=== PATIENT | male | born 1970 | race African-American/Black ===

== ENCOUNTER → 2018-01-18 | Outpatient (CLI) | payer MEDICAID, OTHER ==
[2018-01-18 18:59] LABS: Albumin 4.7 g/dL (3.5-5.0); Calcium 9.8 mg/dL (8.4-10.2); Potassium 4.5 mmol/L (3.5-5.1); Total Bilirubin 0.3 mg/dL (0.2-1.3); Total Protein 7.7 g/dL (6.3-8.2)
[2018-01-18 19:12] LABS: T4, Free (Free Thyroxine) 1.45 ng/dL (0.78-2.19)
[2018-01-18 19:23] LABS: Basophils % (A) 0 %; Eosinophils # (A) 0.1 k/uL (0-0.7); Eosinophils % (A) 1 %; HCT 42.7 % (39.0-53.0); HGB 14.3 gm/dL (13.0-17.5); Lymphocytes # (A) 2.9 k/uL (1.0-4.8); Lymphocytes % (A) 31 %; MCH 29.5 pg (25.0-35.0); MCHC 33.6 g/dL (31.0-37.0); Mean Platelet Volume 11.5; Monocytes # (A) 0.4 k/uL (0-1.0); Monocytes % (A) 4 %; Neutrophils # (A) 5.8 k/uL (1.3-7.7); Neutrophils % (A) 63 %; Platelet Count 114 k/uL (150-450); RBC 4.86 m/uL (4.30-5.90); RDW 13.8 % (11.5-15.5); WBC 9.2 k/uL (3.8-10.6)
[2018-01-18 19:57] LABS: Large Platelets Present
== END | disposition home or self-care (01) ==
LOC: MMGSC 14:16
PROVIDERS: ATTEND Family Medicine
DX: Z00.00 Encounter for general adult medical examination without abnormal findings (principal); I10 Essential (primary) hypertension
CPT/HCPCS: 36415; 80053; 80061; 84439; 84443; 85025

== ENCOUNTER → 2018-02-14 | Outpatient (CLI) | payer MEDICAID ==
--- NOTE | 2018-02-14 21:49 | MR ---
EXAMINATION TYPE: MR pelvis wo/w con DATE OF EXAM: 02/14/2018 COMPARISON: NONE HISTORY: Rt groin pain CONTRAST: Standard multiplanar, multisequence MRI departmental protocol utilizing 10 mL intravenous Gadavist ga dolinium contrast. Imaging is performed of the pelvis focusing and right groin. FINDINGS: There are symmetric tiny benign-appearing bilateral groin lymph nodes. There is no suspicio us bowel or fat containing inguinal hernia bilaterally. Muscle bulk bilateral thighs is symmetric and felt within normal limits. There is no suspicious focal intratesticular mass. There are small scrotal fluid collection or hydroc eles bilaterally. Prostate gland is normal in size. Bladder is poorly distended and suboptimally evaluated. Seminal ves icles are within normal limits. There is no suspicious bowel dilatation. There is no concerning free pelvic fluid collection. There is no suspicious pelvic adenopathy seen. Visualized osseous structures are intact. The hip and sacroiliac joints are preserved. Pubic symphysi s is not widened. No suspicious muscular edema or enhancement is identified. IMPRESSION: No suspicious finding is seen to account for patient's symptoms of right groin pain.
== END | disposition home or self-care (01) ==
LOC: RADMRIMAIN 20:02
PROVIDERS: ATTEND Surgery
DX: R10.30 Lower abdominal pain, unspecified (principal)
CPT/HCPCS: 72197; A9581

== ENCOUNTER 2018-03-15 08:24 | Day surgery (SDC) | payer MEDICAID ==
[2018-03-09 09:12] VITALS: BMI 27.8
[~2018-03-15 08:24] MED LIST: DEXAMETHASONE SOD PHOSPHATE 10 MG/ML 1 ML VIAL IV ONE; HEPARIN SODIUM,PORCINE 5,000 UNIT/ML 1 ML VIAL SQ ONE; LACTATED RINGERS 1,000 ML IV SCH; LIDOCAINE 1% 20 ML VIAL (10MG/ML) FOR IV START INTRADERMA PRN; MIDAZOLAM 2 MG/2 ML VIAL IV PRN; Pre Op ABX Message 1 EACH MISC MISCELLANE ONE; SCOPOLAMINE 1.5MG/72HR PATCH TRANSDERM ONE
[2018-03-15 08:55] VITALS: RESP 16; TEMP 97.2
[2018-03-15] MEDS ORDERED: BUPIVACAINE (PF) 0.5% 30 ML VIAL SQ ONE ×2 (09:33)
--- NOTE | 2018-03-15 09:56 | P.GSHP ---
History of Present Illness H&P Date: 03/15/18 Chief Complaint: Posterior neck mass 47-year-old male presents today for excision right posterior neck mass. Please refer to recent H&P. Mass is increasing in size. Mild pain. No previous biopsy. Past Medical History Past Medical History: GERD/Reflux, Hypertension History of Any Multi-Drug Resistant Organisms: None Reported Additional Past Surgical History / Comment(s): circumcision as adult Past Anesthesia/Blood Transfusion Reactions: No Reported Reaction Smoking Status: Current every day smoker - Past Family History Mother Family Medical History: Cancer Medications and Allergies Home Medications Medication Instructions Recorded Confirmed Type Benazepril HCl 20 mg PO DAILY 03/09/18 03/09/18 History Nebivolol HCl [Bystolic] 10 mg PO DAILY 03/09/18 03/09/18 History Omeprazole 20 mg PO DAILY 03/09/18 03/09/18 History Allergies Allergy/AdvReac Type Severity Reaction Status Date / Time No Known Allergies Allergy Verified 03/09/18 09:04 Surgical - Exam Vital Signs Temp Pulse Resp BP Pulse Ox 97.2 F L 58 L 16 126/95 97 03/15/18 08:54 03/15/18 08:54 03/15/18 08:54 03/15/18 08:54 03/15/18 08:54 Physical exam: General: Well-developed, well-nourished HEENT: Normocephalic, sclerae nonicteric, 2.5-3 cm subcutaneous mass right posterior neck Abdomen: Nontender, nondistended Extremities: No edema Neuro: Alert and oriented Assessment and Plan (1) Neck mass Narrative/Plan: We'll proceed with surgical excision at this time. Current Visit: Yes Status: Acute Code(s): R22.1 - LOCALIZED SWELLING, MASS AND LUMP, NECK SNOMED Code(s): 023799552
[2018-03-15] MEDS ORDERED: LIDOCAINE 1% INJ 10MG/ML (20 ML MDV) ONE (10:00)
[2018-03-15] MEDS ORDERED: PROPOFOL 10 MG/ML 20 ML VIAL IV ONE (10:00)
[2018-03-15] MEDS ORDERED: MIDAZOLAM 2 MG/2 ML VIAL ONE (10:00)
[2018-03-15] MEDS ORDERED: fentaNYL (PF) 50 MCG/ML 2 ML AMP ONE (10:00)
[2018-03-15] MEDS ORDERED: SODIUM CHLORIDE 0.9% 50 ML with ceFAZolin 2,000 MG IV ONE ×2 (10:15)
[2018-03-15] MEDS ORDERED: NALOXONE 0.4 MG/ML 1 ML VIAL IV PRN (10:33)
[2018-03-15] MEDS ORDERED: HYDROcodone/APAP 5-325MG 1 EACH TAB PO PRN (10:33)
--- NOTE | 2018-03-15 10:36 | P.OP ---
Date of Procedure: 03/15/18 Procedure(s) Performed: PREOPERATIVE DIAGNOSIS: Right posterior neck mass POSTOPERATIVE DIAGNOSIS: right posterior neck lipoma PROCEDURE: Excision lipoma SURGEON: Yoselin EBL: 1 mL ANESTHESIA: Sedation COMPLICATIONS: None OPERATIVE PROCEDURE: Patient placed in the left decubitus position. He was sedated per anesthesia. The right posterior neck was prepped and draped in usual sterile fashion. A small incision was made after localizing with Marcaine. Dissection through the subcutaneous tissue took place using electrocautery. The mass was a lipoma measuring 3 x 2 cm. This was fully excised with use of blunt dissection and cautery. The subcutaneous tissues were closed using 3-0 Vicryl sutures and the skin using 4-0 Monocryl sutures. Steri-Strips and sterile dressings were applied. DISPOSITION: Stable to recovery room
[2018-03-15 11:15] VITALS: BP 125/84; PULSE 52
== END 2018-03-15 11:57 | disposition home or self-care (01) ==
LOC: OR 08:24
PROVIDERS: ATTEND Surgery
DX: D17.0 Benign lipomatous neoplasm of skin and subcutaneous tissue of head, face and neck (principal); Z79.899 Other long term (current) drug therapy; I10 Essential (primary) hypertension; K21.9 Gastro-esophageal reflux disease without esophagitis; F17.200 Nicotine dependence, unspecified, uncomplicated
CPT/HCPCS: 88304; 21552; J2250; J1644; J1100; J2001; J3010; J0690; J2704

== ENCOUNTER → 2018-04-24 | Outpatient (CLI) | payer MEDICAID ==
[2018-04-24 17:41] LABS: HCT 43.1 % (39.0-53.0); HGB 14.4 gm/dL (13.0-17.5); MCH 30.3 pg (25.0-35.0); MCHC 33.6 g/dL (31.0-37.0); MCV 90.2 fL (80.0-100.0); Mean Platelet Volume 9.1; Platelet Count 111 k/uL (150-450); RBC 4.77 m/uL (4.30-5.90); RDW 13.8 % (11.5-15.5); WBC 7.3 k/uL (3.8-10.6)
[2018-04-24 17:48] LABS: Appearance,Urine Clear (Clear); Bilirubin,Urine Negative (Negative); Blood,Urine Negative (Negative); Color,Urine Light Yellow; Glucose,Urine (UA) Negative (Negative); Ketones,Urine Negative (Negative); Leukocyte Esterase,Urine Negative (Negative); Nitrite,Urine Negative (Negative); PH, Urine 6.5 (5.0-8.0); Protein,Urine Negative (Negative); Specific Gravity,Urine 1.014 (1.001-1.035); Urobilinogen,Urine <2.0 mg/dL (<2.0)
[2018-04-24 18:00] LABS: Calcium 9.7 mg/dL (8.4-10.2); Phosphorus 3.5 mg/dL (2.5-4.5); Potassium 4.3 mmol/L (3.5-5.1)
== END | disposition home or self-care (01) ==
LOC: LABWHC1 17:29
PROVIDERS: ATTEND Internal Medicine Nephrology
DX: N39.0 Urinary tract infection, site not specified (principal); D64.9 Anemia, unspecified; E83.39 Other disorders of phosphorus metabolism
CPT/HCPCS: 36415; 80048; 81003; 84100; 85027

== ENCOUNTER → 2018-05-10 | Outpatient (CLI) | payer MEDICAID ==
--- NOTE | 2018-05-10 22:40 | MR ---
EXAMINATION TYPE: MR lumbar spine wo con DATE OF EXAM: 05/10/2018 COMPARISON: Outside lumbar spine x-ray April 27, 2018 HISTORY: Low back pain per order. Pain for 6 to 8 months going into right lower extremity per patient . TECHNIQUE: Multiplanar, multisequence imaging of the lumbar spine is performed without IV contrast. FINDINGS: Sagittal images of the lumbar spine show vertebral body heights and alignment to appear sat isfactory. The intervertebral discs demonstrate normal heights and hydration. No suspicious posterior disc herniations are seen on sagittal images. The conus medullaris is normal in position and signal ending mid L1 level. The bone marrow signal intensity is within normal limits. Small hemangioma S2 l evel is noted sagittal image 7. Additional hemangioma noted L2 level sagittal image 6. No significant spurring is present. Axial images show the T12-L1, L1-L2, and L2-L3 levels also appear within normal limits. Axial images at L3-L4 and L4-L5 levels show mild broad disc bulges minimally effacing anterior thecal sac and causing mild bilateral anterior inferior neural foraminal narrowing. Axial images at L5-S1 level are felt to appear within normal limits. No suspicious retroperitoneal findings are seen. Paraspinal muscle bulk is preserved. IMPRESSION: Some mild multilevel degenerative changes L3-L4 and L4-L5 levels. No significant finding is seen to account for patient's right-sided radiculopathy type symptoms however.
== END | disposition home or self-care (01) ==
LOC: RADMRIMAIN 09:39
PROVIDERS: ATTEND Orthopaedic Surgery
DX: M47.816 Spondylosis without myelopathy or radiculopathy, lumbar region (principal)
CPT/HCPCS: 72148

== ENCOUNTER → 2018-05-19 | Outpatient (CLI) | payer MEDICAID ==
--- NOTE | 2018-05-19 16:04 | US ---
EXAMINATION TYPE: US kidneys/renal and bladder DATE OF EXAM: 05/19/2018 COMPARISON: MRI lumbar spine May 10, 2018 CLINICAL HISTORY: N18.3 CKD. Elevated labs. No pain. Family hx of renal abnormalities EXAM MEASUREMENTS: Right Kidney: 10.1 x 5.5 x 5.5 cm Left Kidney: 9.1 x 5.2 x 6.2 cm Right Kidney: No hydronephrosis or masses seen Left Kidney: No hydronephrosis or masses seen Bladder: wnl, distended Bilateral Jets seen There is no evidence for hydronephrosis at this point in time. No nephrolithiasis is seen. No breana s are identified. The urinary bladder is anechoic. Bilateral ureteral jets are seen. IMPRESSION: Unremarkable study.
== END | disposition home or self-care (01) ==
LOC: RADUSWWP 14:31
PROVIDERS: ATTEND Internal Medicine Nephrology
DX: N18.3 Chronic kidney disease, stage 3 (moderate) (principal)
CPT/HCPCS: 76770

== ENCOUNTER → 2018-06-14 | Outpatient (CLI) | payer MEDICAID ==
--- NOTE | 2018-06-15 03:03 | MR ---
EXAMINATION TYPE: MR hip RT wo con DATE OF EXAM: 06/14/2018 COMPARISON: None HISTORY: Rt hip pain x 9 mos, no trauma Standard multiplanar, multisequence MRI departmental protocol Multiplanar, multisequence images of the right hip were acquired. FINDINGS: Proximal femurs have normal signal pattern. There is no evidence of edema. There is no evid ence of a fracture. Acetabula appear normal. Bladder distends smoothly. There is no evidence of a pel abbe mass. There is no evidence of hip joint effusion. I see no bony destructive process. IMPRESSION: Normal MR scan of the pelvis and right hip. No evidence of hip dysplasia. No evidence of avascular ne crosis.
== END | disposition home or self-care (01) ==
LOC: RADMRIMAIN 15:30
PROVIDERS: ATTEND Orthopaedic Surgery
DX: M25.551 Pain in right hip (principal)

== ENCOUNTER → 2019-01-08 | Outpatient (CLI) | payer MEDICAID ==
--- NOTE | 2019-01-08 22:48 | MR ---
EXAMINATION TYPE: MR lumbar spine wo con DATE OF EXAM: 01/08/2019 COMPARISON: MRI lumbar spine May 10, 2018 HISTORY: Low back pain, Left leg pain TECHNIQUE: Multiplanar, multisequence imaging of the lumbar spine is performed without IV contrast. FINDINGS: Sagittal images of the lumbar spine show vertebral body heights and alignment to appear sta ble and straightened. The intervertebral discs 3 demonstrate normal heights and hydration. The conus medullaris remains normal in position and signal ending mid L1 level. Hemangioma involving L2 verteb ra is redemonstrated sagittal image 6. Additional small hemangioma redemonstrated S2 level sagittal i mage 8. Axial images redemonstrate the T12-L1, L1-L2, and L2-L3 levels all to appear within normal limits. Axial images at the L3-L4 level redemonstrates mild broad disc bulge minimally effacing the anterior thecal sac and causing mild bilaterally anterior inferior neural foraminal narrowing, no significant change from prior. Axial images at L4-L5 levels with broad-based posterior disc protrusion mildly effaces the anterior t hecal sac with left foraminal annular tear and mild bilateral lesion inferior neural foraminal narrow ing, no significant change from prior. Axial images at L5-S1 level are felt to remain within normal limits. No suspicious incidental retroperitoneal findings are seen. IMPRESSION: Stable small disc herniations L3-L4 and L4-L5 level with stable straightened alignment. N o significant change from prior MRI.
== END ==
LOC: RADMRIMAIN 21:42
PROVIDERS: ATTEND Physical Medicine & Rehabilitation
DX: M51.26 Other intervertebral disc displacement, lumbar region (principal)
CPT/HCPCS: 72148

== ENCOUNTER → 2020-07-23 | Outpatient (CLI) | payer MEDICAID ==
--- NOTE | 2020-07-23 08:22 | MR ---
EXAMINATION TYPE: MR lumbar spine wo con DATE OF EXAM: 07/23/2020 COMPARISON: Prior MRI lumbar spine January 08, 2019. HISTORY: Low back pain, radiculopathy, intervertebral disc degeneration with radiculopathy, and right lower extremity radiculopathy all per order. Pain and numbness for 4 to 5 years into right lower ext remity per patient. TECHNIQUE: Multiplanar, multisequence imaging of the lumbar spine is performed without IV contrast. FINDINGS: Sagittal images of the lumbar spine show vertebral body heights to remain stable and satisf actory. Stable and straightened alignment. The intervertebral discs redemonstrate demonstrate normal heights and hydration. The conus medullaris remains normal in position and signal ending mid L1 leve l. Hemangioma involving L2 vertebra is redemonstrated sagittal image 6. Additional small hemangioma r edemonstrated S2 level sagittal image 8. No suspicious spurring. Axial images redemonstrate the T12-L1, L1-L2, and L2-L3 levels all to remain within normal limits. Axial images at the L3-L4 level redemonstrates mild broad disc bulge minimally effacing the anterior thecal sac and causing mild bilaterally anterior inferior neural foraminal narrowing, no significant change from prior. Axial images at L4-L5 levels demonstrate broad-based posterior disc protrusion mildly effaces the ant erior thecal sac with left foraminal annular tear and mild bilateral anterior inferior neural foramin al narrowing, no significant change from prior. Axial images at L5-S1 level are felt to remain within normal limits. Paraspinal muscle bulk is preserved. IMPRESSION: Straightening of lumbar spine with mild multilevel degenerative changes at L3-L4 and L4-L 5 levels. No significant change or progression from recent MRI. No suspicious focal disc herniation i dentified to account for patient's right-sided radiculopathy type symptoms.
== END | disposition home or self-care (01) ==
LOC: RADMRIMAIN 07:36
PROVIDERS: ATTEND Physical Medicine & Rehabilitation
DX: M47.26 Other spondylosis with radiculopathy, lumbar region (principal); M53.86 Other specified dorsopathies, lumbar region; I10 Essential (primary) hypertension
CPT/HCPCS: 72148

== ENCOUNTER → 2020-08-18 | Outpatient (CLI) | payer MEDICAID ==
--- NOTE | 2020-08-18 15:31 | US ---
EXAMINATION TYPE: US kidneys/renal and bladder DATE OF EXAM: 08/18/2020 COMPARISON: US, MR lumbar spine CLINICAL HISTORY: N18.3 chronic kidney stage 3. EXAM MEASUREMENTS: Right Kidney: 10.1 x 6.1 x 4.4 cm Left Kidney: 10.1 x 5.6 x 6.4 cm Post Void Residual Volume: 1.7 mL Right Kidney: No hydronephrosis or masses seen Left Kidney: No hydronephrosis or masses seen Bladder: wnl Bilateral Jets seen: yes Normal Post Void Residual: yes IMPRESSION: No hydronephrosis or nephrolithiasis.
== END | disposition home or self-care (01) ==
LOC: RADUSWWP 14:21
PROVIDERS: ATTEND Internal Medicine
DX: N18.30 Chronic kidney disease, stage 3 unspecified (principal)
CPT/HCPCS: 76770

== ENCOUNTER 2020-09-02 07:30 | Day surgery (SDC) | payer MEDICAID ==
[2020-08-27 13:10] VITALS: BMI 28.7
[2020-09-02 07:52] VITALS: TEMP 97.8
[2020-09-02] MEDS ORDERED: IOPAMIDOL M200 10 ML VIAL ONE (08:09)
[2020-09-02] MEDS ORDERED: TRIAMCINOLONE ACETONIDE 40 MG/ML 1 ML VIAL ONE (08:09)
--- NOTE | 2020-09-02 08:20 | P.PCN ---
Date of Procedure: 09/02/20 Description of Procedure: Preoperative diagnoses: right sacroilitis Postoperative diagnoses: right sacroilitis. Procedure: right sacroiliac joint steroid injection under fluoroscopic guidance. Surgeon: Akil Dow MD Anesthesia: [2 mL of 1% lidocaine and moderate sedation per hospital guideli yogi], Fluoroscopy was used for the procedure and fluoroscopic images were saved to the radiology portion of the patient's chart. EBL: None Procedure indication: The patient had a history of severe chronic low back pain, diagnosed with sacroiliitis unresponsive to conservative treatment. Procedure description: The patient was seen and identified in the preoperative holding area, risks and benefits and alternative of the procedure and possible complications discussed with the patient, and patient agreed with the preceding, patient signed the consent, an IV was started, and vital signs were monitored and were stable throughout the procedure, patient was placed in the prone position on table and the lumbosacral area was prepped and draped with a sterile fashion, vital signs were closely monitored during the procedure, the fluoroscopy camera was placed in the contralateral oblique view on the rightsacroiliac joint and the lower part of the joint was identified . Then the skin and subcutaneous tissue was anesthetized using 2 mL of 1% lidocaine then a 22-gauge Quincke-type spinal needle advanced slowly under fluoroscopy and placed in the posterior and inferior border of the right sacroiliac joint, placement confirmed with AP and lateral view, and after appropriate needle placement confirmed and after negative aspiration for heme, 1 mL of Isovue 200 was injected revealing intra-articular spread. Then a solution consisting of 2 ml of ropivacaine 0.5% and 40 mg of Kenalog injected after negative aspiration, no paresthesia during the injection, no resistance to injection, and the needle was removed. Total of 40 mg of Kenalog was used for the procedure. Patient tolerated the procedure well without any complication. The patient was returned to supine position after the back was cleaned and a Band-Aid applied, the patient was transported to recovery room in stable condition and monitored for 30 minutes before being discharged home. The patient will repeat procedure in 2-4 weeks.
[2020-09-02 08:42] VITALS: BP 135/80; PULSE 54; RESP 16
--- NOTE | 2020-09-02 09:24 | FL ---
Fluoroscopy HISTORY: Pain 3 seconds fluoroscopy time supplied to the referring clinician. 1 intraoperative C-arm images docume nt the procedure. See dictated report from anesthesia.
== END 2020-09-02 08:45 | disposition home or self-care (01) ==
LOC: ORPAIN 07:30
PROVIDERS: ATTEND Anesthesiology
DX: G89.29 Other chronic pain (principal); M46.1 Sacroiliitis, not elsewhere classified
CPT/HCPCS: 27096; J3301; Q9966

== ENCOUNTER 2020-09-18 07:13 | Day surgery (SDC) | payer MEDICAID ==
[2020-09-17 13:23] VITALS: BMI 28.3
[~2020-09-18 07:13] MED LIST changes: -DEXAMETHASONE SOD PHOSPHATE 10 MG/ML 1 ML VIAL IV ONE; -HEPARIN SODIUM,PORCINE 5,000 UNIT/ML 1 ML VIAL SQ ONE; -LIDOCAINE 1% 20 ML VIAL (10MG/ML) FOR IV START INTRADERMA PRN; -MIDAZOLAM 2 MG/2 ML VIAL IV PRN; -Pre Op ABX Message 1 EACH MISC MISCELLANE ONE; -SCOPOLAMINE 1.5MG/72HR PATCH TRANSDERM ONE
[2020-09-18 07:25] VITALS: RESP 16; TEMP 98.5
[2020-09-18] MEDS ORDERED: LIDOCAINE 1% (10MG/ML) FOR IV START INTRADERMA ONE (07:29)
[2020-09-18] MEDS ORDERED: LACTATED RINGERS 1,000 ML IV ONE (07:29)
[2020-09-18] MEDS ORDERED: MIDAZOLAM 2 MG/2 ML VIAL ONE (07:31)
[2020-09-18] MEDS ORDERED: methylPREDNISolone ACETATE 40 MG/ML 1 ML VIAL ONE (07:31)
[2020-09-18] MEDS ORDERED: fentaNYL (PF) 50 MCG/ML 2 ML AMP ONE (07:31)
[2020-09-18] MEDS ORDERED: ROPIVACAINE 5MG/ML 20ML VIAL ONE (07:31)
--- NOTE | 2020-09-18 07:45 | P.PCN ---
Date of Procedure: 09/18/20 Procedure(s) Performed: Procedure= Right sacroiliac joints steroid injection under fluoroscopy guidance (fluoroscopy image stored on file in the radiology Department ) Preoperative diagnosis= 1-Right sacroiliitis # 2 nd Postoperative diagnosis=Same as preop Diagnosis . Complication = none Condition= stable Anesthesia= moderate sedation with intravenous Versed 2 mg , and fentanyl 50 micrograms . Indication for the procedure= patient complaining of low back pain , examination was positive for severe tenderness over the sacroiliac joints bilaterally and patient diagnosed with sacroiliitis, for this reason he was good candidate for sacroiliac joint steroid injection. Description of the procedure= procedure risk and benefits discussed with the patient, including but not limited, risk of infection and bleeding, and ALLERGIC reaction to the medication and not complete pain relief and patient agreed with the preceding patient taken to the operating room, placed in prone position or standard monitors applied to the patient then after induction of anesthesia back prepped with chlorhexidine 3 times , Then under strict sterile technique, first I did the right sacroiliac joint the which was identified under fluoroscopy guidance been local infiltration of the skin and subcu interstitial with lidocaine 1% then 22-gauge Quincke Needle advanced slowly under fluoroscopy and placed in the right sacroiliac joint needle placement confirmed with AP and oblique and lateral view and after a ppropriate needle placement confirmed and after negative aspiration, or heme , then Ropivacaine 0.5% 4 mL, and 40 mg of Depo-Medrol mixed together and injected in the right sacroiliac joint after negative aspiration patient tolerated the procedure well without any complication.
[2020-09-18] MEDS ORDERED: IV FLUID CONTINUATION 1,000 ML IV ONE ×2 (07:46)
[2020-09-18 08:03] VITALS: BP 130/88; PULSE 78
--- NOTE | 2020-09-18 09:21 | FL ---
EXAMINATION TYPE: FL guided pain mgmt statistic DATE OF EXAM: 09/18/2020 HISTORY: Fluoroscopy time 5 seconds of fluoroscopy provided. IMPRESSION: 1. Fluoroscopy time.
== END 2020-09-18 08:20 | disposition home or self-care (01) ==
LOC: ORPAIN 07:13
PROVIDERS: ATTEND Specialist
DX: M46.1 Sacroiliitis, not elsewhere classified (principal); I10 Essential (primary) hypertension
CPT/HCPCS: 27096; J2250; J1030; J3010; J2795

== ENCOUNTER → 2020-10-21 | Outpatient (CLI) | payer MEDICAID ==
[2020-10-21 09:05] LABS: HCT 39.6 % (39.0-53.0); HGB 13.8 gm/dL (13.0-17.5); MCHC 34.8 g/dL (31.0-37.0); MCV 91.8 fL (80.0-100.0); Mean Platelet Volume 8.8; Platelet Count 105 k/uL (150-450); RBC 4.31 m/uL (4.30-5.90); RDW 13.5 % (11.5-15.5); WBC 5.7 k/uL (3.8-10.6)
[2020-10-21 09:31] LABS: Appearance,Urine Clear (Clear); Bilirubin,Urine Negative (Negative); Blood,Urine Negative (Negative); Color,Urine Yellow; Glucose,Urine (UA) Negative (Negative); Ketones,Urine Negative (Negative); Leukocyte Esterase,Urine Negative (Negative); Nitrite,Urine Negative (Negative); PH, Urine 5.5 (5.0-8.0); Protein,Urine Trace (Negative); Specific Gravity,Urine 1.032 (1.001-1.035); Urobilinogen,Urine <2.0 mg/dL (<2.0)
[2020-10-21 14:46] LABS: African American GFR (CKD) 67.9 (60.0-200.0); Albumin 4.5 g/dL (3.80-4.90); Albumin/Globulin Ratio 2.05 (1.60-3.17); Anion Gap 7.7 mmol/L (4.00-12.00); BUN/Creat Ratio 17.86 Ratio (12.00-20.00); Calcium 9.7 mg/dL (8.7-10.3); Carbon Dioxide 29.3 mmol/L (21.6-31.8); Globulin 2.2 g/dL (1.6-3.3); Non-African American GFR(CKD) 58.6 (60.0-200.0); Total Bilirubin 0.5 mg/dL (0.2-1.2); Total Protein 6.7 g/dL (6.2-8.2)
[2020-10-21 14:47] LABS: % Iron Saturation 25.08 (15.00-50.00); Magnesium 1.7 mg/dL (1.5-2.4); Uric Acid 7.6 mg/dL (3.7-8.7)
[2020-10-21 14:55] LABS: Ferritin 167.7 ng/mL (22.0-322.0)
[2020-10-21 19:03] LABS: Urine Creatinine 377.6 mg/dL
== END | disposition home or self-care (01) ==
LOC: LABWHC1 07:37
PROVIDERS: ATTEND Internal Medicine
DX: E55.9 Vitamin D deficiency, unspecified (principal); D63.1 Anemia in chronic kidney disease; N18.30 Chronic kidney disease, stage 3 unspecified; N25.81 Secondary hyperparathyroidism of renal origin; M10.9 Gout, unspecified; N39.0 Urinary tract infection, site not specified
CPT/HCPCS: 36415; 80053; 81003; 82043; 82306; 82570; 82728; 83540; 83550; 83735; 83970; 84100; 84550; 85027

== ENCOUNTER 2020-12-15 08:59 | Day surgery (SDC) | payer MEDICAID ==
[2020-12-11 11:19] VITALS: BMI 28.5
[2020-12-15 09:53] VITALS: TEMP 97.1
[2020-12-15] MEDS: LACTATED RINGERS 1,000 ML IV SCH ×2 (10:02→10:41)
[2020-12-15] MEDS ORDERED: LIDOCAINE 1% (10MG/ML) FOR IV START INTRADERMA ONE (10:03)
[2020-12-15] MEDS ORDERED: GLYCOPYRROLATE 0.2 MG/ML 2 ML VIAL ONE (10:43)
[2020-12-15] MEDS ORDERED: LIDOCAINE 1% INJ 10MG/ML (20 ML MDV) ONE (10:43)
[2020-12-15] MEDS ORDERED: PROPOFOL 10 MG/ML 20 ML VIAL IV ONE (10:43)
[2020-12-15] MEDS ORDERED: MIDAZOLAM 2 MG/2 ML VIAL ONE (10:43)
--- NOTE | 2020-12-15 11:21 | P.PCN ---
Date of Procedure: 12/15/20 Description of Procedure: Brief history: Patient is a 50-year-old male presenting for outpatient EGD and colonoscopy for further history of gastric ulcer and symptoms of diarrhea/altered bowel function with no prior screening colonoscopy. He denies any family history of colon cancer or IBD. Reports a remote history of peptic ulcer disease. He reports intermittent diarrhea. No prior colonoscopy. Procedure performed: Esophagogastroduodenoscopy with biopsy Colonoscopy with biopsy and polypectomy Estimated blood loss: Minimal. Preoperative diagnosis: GERD, history of gastric ulcer, diarrhea, altered bowel function, no prior colonoscopy or screening colonoscopy Anesthesia: [facility] Procedure: After informed consent was obtained from the patient was brought into the endoscopy unit and IV sedation was administered by anesthesia under continuous monitoring. Initially upper endoscopy was done. The Olympus GF 190 video endoscope was inserted into the mouth and esophagus intubated without any difficulty and was gradually advanced into the stomach and duodenum and carefully examined. The bulb and second part of the duodenum appeared normal, with biopsies taken. The scope was then withdrawn into the stomach adequately insufflated with air and upon careful examination the antrum and body, cardia and fundus appeared normal, except for some mild scattered erythema and body suggestive of mild gastritis with biopsies taken . The scope was then withdrawn into the esophagus. The GE junction was located at 42 cm to the incisors and biopsies. It appeared regular with no erythema erosions or ulcerations. Rest of the esophagus appeared normal. Patient tolerated the procedure well. At this time the patient continued to remain sedation. Initial digital rectal examination was normal. Olympus CF 190 video colonoscope was then inserted into the rectum and gradually advanced to the cecum without any difficulty. Careful examination was performed as the scope was gradually being withdrawn. The prep was excellent. The cecum, ascending colon, transverse colon, descending colon, sigmoid colon and rectum appeared normal, with random biopsies taken of the right and left colon in the setting of altered bowel function diarrhea. Diminutive 2 mm transverse colon polyp removed with cold forcep polypectomy. Pedunculated 12 mm sigmoid colon polyp removed with hot snare polypectomy. Retroflexion was performed in the rectum and no lesions were noted, low-grade internal hemorrhoids. Patient tolerated the procedure well. Impression: 1. Mild gastritis. Biopsies of the duodenum, antrum body and GE junction. 2. Pedunculated sigmoid colon polyp removed with hot snare. Diminutive transverse colon polyp removed with cold forcep polypectomy. Random biopsies taken of the normal-appearing right and left colon given altered bowel function. Recommendations: Findings of this examination were discussed with the patient as well as his family. Okay to resume diet. Okay to resume medications. Await pathology from biopsies and polypectomy. Recommend repeat colonoscopy in 3 years pending pathology from polypectomy, for colon polyps.
[2020-12-15 11:41] VITALS: BP 144/93; PULSE 68; RESP 16
== END 2020-12-15 12:14 | disposition home or self-care (01) ==
LOC: ORWHC2ENDO 08:59
PROVIDERS: ATTEND Internal Medicine
DX: R19.7 Diarrhea, unspecified (principal); K21.9 Gastro-esophageal reflux disease without esophagitis; D12.3 Benign neoplasm of transverse colon; Z87.11 Personal history of peptic ulcer disease; K31.9 Disease of stomach and duodenum, unspecified
CPT/HCPCS: 45385; 45380; 43239; 88305; J2250; J2001; J2704

== ENCOUNTER 2020-12-16 11:41 | Day surgery (SDC) | payer MEDICAID ==
[2020-12-11 11:32] VITALS: BMI 28.5
[2020-12-16 11:57] VITALS: TEMP 97
[2020-12-16] MEDS ORDERED: LACTATED RINGERS 1,000 ML IV ONE (12:01)
[2020-12-16] MEDS ORDERED: LACTATED RINGERS 1,000 ML IV SCH (12:15)
[2020-12-16] MEDS ORDERED: ROPIVACAINE 5MG/ML 20ML VIAL ONE (12:53)
[2020-12-16] MEDS ORDERED: MIDAZOLAM 2 MG/2 ML VIAL ONE (12:53)
[2020-12-16] MEDS ORDERED: IOPAMIDOL M200 10 ML VIAL ONE (12:53)
[2020-12-16] MEDS ORDERED: methylPREDNISolone ACETATE 40 MG/ML 1 ML VIAL ONE (12:53)
--- NOTE | 2020-12-16 13:03 | P.PCN ---
Date of Procedure: 12/16/20 Description of Procedure: PREOPERATIVE DIAGNOSIS: Sacroiliac joint dysfunction POSTOPERATIVE DIAGNOSIS: Sacroiliac joint dysfunction. PROCEDURES: 1.Right-sided Sacroiliac joint steroid injection 2. Sacroiliac joint arthrogram. SURGEON: Susanne Lee ANESTHESIA: Local and IV sedation : Versed 2 mg. EBL: None. Specimen removed: None Fluoroscopic image: saved to electronic medical records. PROCEDURE INDICATIONS: This patient with a history of chronic low back pain, and sacroiliac joint dysfunction. Patient tried conservative therapy. Came here for intervention management. PROCEDURE DESCRIPTION: The patient was seen and identified in the preoperative area. Risks, benefits, complications, and alternatives were discussed with the patient. The patient agreed to proceed with the procedure and signed the consent. IV was started, and vital signs were stable. Patient was taken to the OR and time out was completed. The patient was placed in the prone position on procedure table and a pillow was placed under the abdomen to reduce lumbar lordosis. The lumbosacral area was prepped and draped in the usual sterile fashion. Critical pause was taken. Vital signs were closely monitored during the procedure. For the right side, the fluoroscopic camera was placed in left oblique view and right SI joint lower pole was identified. Skin entry point was infiltrated with 1% lidocaine and 22-gauge 3.5 inch spinal needle was introduced into the inferior one-third of SI joint and after penetrating into the joint arthrogram was done. 0.5 ml of Etsofi285 contrast was injected after negative aspiration for blood, and air and negative for paresthesia. Good spread of the contrast into the SI joint has been seen. Then again after negative aspiration of spinal fluid and blood and negative for neurological symptoms, 3 mL of a solution containing total 2 mL of 0.5% preservative-free ropivacaine mixed with 40 MG of Depo-Medrol was injected. Needle was withdrawn intact. Skin was cleansed, and bandages were applied. COMPLICATIONS: None. DISPOSITION / PLANS: The patient was placed in a supine position and transferred to the recovery area in a stable condition for observation and was discharged from the recovery room after meeting discharge criteria. Home discharge instructions given to the patient by the staff. The patient was reexamined prior to discharge. The patient will schedule for follow-up visit with the pain clinic in 4 weeks duration.
[2020-12-16] MEDS ORDERED: IV FLUID CONTINUATION 840 ML IV ONE (13:05)
[2020-12-16 13:12] VITALS: RESP 16
[2020-12-16 13:25] VITALS: BP 138/89; PULSE 61
--- NOTE | 2020-12-16 13:30 | FL ---
EXAMINATION TYPE: FL guided pain mgmt statistic DATE OF EXAM: 12/16/2020 HISTORY: Fluoroscopy time 1 seconds of fluoroscopy provided. IMPRESSION: 1. Fluoroscopy time.
== END 2020-12-16 13:30 | disposition home or self-care (01) ==
LOC: ORPAIN 11:41
DX: G89.29 Other chronic pain (principal); M53.3 Sacrococcygeal disorders, not elsewhere classified; M46.1 Sacroiliitis, not elsewhere classified; Z79.899 Other long term (current) drug therapy
CPT/HCPCS: 27096; J2250; J1030; Q9966; J2795

== ENCOUNTER → 2021-01-12 | Outpatient (CLI) | payer MEDICAID ==
--- NOTE | 2021-01-12 15:12 | P.PN ---
Subjective Progress Note Date: 01/12/21 This is a follow-up visit for this 50 years old male with a chronic history of severe low back pain , he is diagnosed with Right sacroiliitis, recently we have done Right sacroiliac joint steroid injection patient reported that his pain improved significantly, he is able to do activity of daily livings he's able to function more he denies any motor or sensory deficit is very satisfied with the result of the treatment Objective - Vital Signs Vital signs: Vital Signs Temp 97.8 F 01/12/21 09:28 Pulse 59 L 01/12/21 09:28 Resp 16 01/12/21 09:28 BP 160/109 01/12/21 09:28 Pulse Ox 100 01/12/21 09:28 - Exam Physical Examinations : -Constitutiona : Cooperative , not in acute distress . -HEENT : nech : supple , no Lymphadenopathy , normal thyroid size . : eyes : no ptosis , no icterus, no photophobia . - neurologic : Cranial nerve II to XII intact , no focal neurological deffecit . -psychatric : alert , oriented X 3 , appropriate affect , intact judgment and insight . -Lymphatic : no Lymphadenopathy . - musculoskeltal : Lumber spine moter stegnth lower extremities ,thigh and legs 5/5 Right side , 5/5 Left side Assessment and Plan Plan: Assessment and plan=1-right sacroiliitis Pain improved significantly after right sacroiliac steroid injections, patient will follow with the pain clinic when necessary - PQRS measures = - Patient's medications are documented in the chart. -Tobacco use is positive, and counseling.Given. -Patient's has not received pneumococcal vaccine. -Advanced care planning discussed, patient not eligible. -Opiate contract not signed. -Pain positive and follow-up visit/procedure is scheduled. -Patient's blood pressure measured [ 160/109 ] , and documented in the record ,and patient will follow up with the primary care. -Patient's weight was measured and body mass index [ 28.5 ] above the,normal limits and counseling was done. and patient instructed to follow-up with the primary care physician. -Patient was not identified as an unhealthy alcohol user Time with Patient: Less than 30
== END ==
CPT/HCPCS: 99211

== ENCOUNTER → 2021-02-24 | Outpatient (CLI) | payer MEDICAID ==
--- NOTE | 2021-02-24 16:09 | US ---
EXAMINATION TYPE: US scrotum with doppler. Grayscale and color Doppler Duplex imaging performed of cy gerard scrotum. DATE OF EXAM: 02/24/2021 COMPARISON: NONE CLINICAL HISTORY: N50.8 Other specified disorders of male genital or. EXAM MEASUREMENTS: TESTICLES: Right Testicle: 3.6 x 1.9 x 2.5 cm Left Testicle: 3.7 x 1.9 x 2.6 cm EPIDIDYMIS HEAD: Right Epididymis: 0.9 x 0.6 C cm, 0.7 x 0.4 cm epididymal head cyst or spermatocele. Left Epididymis: 1.4 x 1.0 cm Doppler performed to assess for testicular vascularity; good bilateral color flow and waveforms are s een. There is no evidence of testicular torsion. Presence of hydroceles: small amount of fluid around both testicles. Presence of varicoceles: none appreciated IMPRESSION: 1. 7 mm epididymal head cyst or spermatocele. 2. Tiny hydroceles. 3. No evidence of testicular torsion, epididymitis or orchitis.
== END | disposition home or self-care (01) ==
LOC: RADUSWWP 15:25
PROVIDERS: ATTEND Urology
DX: N43.3 Hydrocele, unspecified (principal)
CPT/HCPCS: 76870; 93975

== ENCOUNTER → 2021-05-25 | Outpatient (CLI) | payer MEDICAID ==
--- NOTE | 2021-05-25 12:24 | MR ---
EXAMINATION TYPE: MR lumbar spine wo con DATE OF EXAM: 05/25/2021 11:59 AM COMPARISON: 07/23/2020 HISTORY: Low back pain Multiplanar, MultiSpin echo imaging of the lumbar spine was performed. L1-L2: Normal disc appearance without desiccation. No herniation, protrusion or disc bulging. No ca nal stenosis is present. Foramina are patent bilaterally. L2-L3: Normal disc appearance without desiccation. No herniation, protrusion or disc bulging. No ca nal stenosis is present. Foramina are patent bilaterally. L2 hemangioma again seen. L3-L4: Mild disc desiccation noted in the minimal posterior disc bulge unchanged. No herniation or pr otrusion. No canal stenosis is present. Foramina are patent bilaterally. L4-L5: Mild disc desiccation noted in the minimal posterior disc bulge unchanged. No herniation or pr otrusion. No canal stenosis is present. Foramina are patent bilaterally. L5-S1: Normal disc appearance without desiccation. No herniation, protrusion or disc bulging. No ca nal stenosis is present. Foramina are patent bilaterally. Lumbar segments are intact. No paraspinal masses are identified. Conus medullaris has a normal appe arance. IMPRESSION: 1. Stable mild degenerative disc disease and disc bulging at L3-4 and L4-5.
== END | disposition home or self-care (01) ==
LOC: RADMRIMAIN 11:28
PROVIDERS: ATTEND Orthopaedic Surgery
DX: M51.26 Other intervertebral disc displacement, lumbar region (principal); M51.36 Other intervertebral disc degeneration, lumbar region
CPT/HCPCS: 72148

== ENCOUNTER 2021-06-02 09:38 | Day surgery (SDC) | payer MEDICAID ==
[2021-05-28 10:22] VITALS: BMI 28.8
[2021-06-02] MEDS ORDERED: fentaNYL (PF) 50 MCG/ML 2 ML AMP ONE (10:12)
[2021-06-02] MEDS ORDERED: MIDAZOLAM 2 MG/2 ML VIAL ONE (10:12)
[2021-06-02] MEDS ORDERED: methylPREDNISolone ACETATE 40 MG/ML 1 ML VIAL ONE (10:12)
[2021-06-02] MEDS ORDERED: ROPIVACAINE 5MG/ML 20ML VIAL ONE (10:12)
--- NOTE | 2021-06-02 10:29 | P.PCN ---
Date of Procedure: 06/02/21 Procedure(s) Performed: Procedure= Right sacroiliac joints steroid injection under fluoroscopy guidance (fluoroscopy image stored on file in the radiology Department ) Preoperative diagnosis= 1-Right sacroiliitis 2-right sacroiliac joint dysfunction. Right Postoperative diagnosis=Same as preop Diagnosis . Complication = none Condition= stable Anesthesia= moderate sedation with intravenous Versed 2 mg , and fentanyl 100 micrograms . Indication for the procedure= patient complaining of low back pain , examination was positive for severe tenderness over the sacroiliac joints bilaterally and patient diagnosed with sacroiliitis, for this reason he was good candidate for sacroiliac joint steroid injection. Description of the procedure= procedure risk and benefits discussed with the patient, including but not limited, risk of infection and bleeding, and ALLERGIC reaction to the medication and not complete pain relief and patient agreed with the preceding patient taken to the operating room, placed in prone position or standard monitors applied to the patient then after induction of anesthesia back prepped with chlorhexidine 3 times , Then under strict sterile technique, first I did the right sacroiliac joint the which was identified under fluoroscopy guidance been local infiltration of the skin and subcu interstitial with lidocaine 1% then 22-gauge Quincke Needle advanced slowly under fluoroscopy and placed in the right sacroiliac joint needle placement confirmed with AP and oblique and lateral view and after appropriate needle placement confirmed and after negative aspiration, or heme , then Ropivacaine 0.5% 5 mL, and 60 mg of Depo-Medrol mixed together and injected in the right sacroiliac joint after negative aspiration patient tolerated the procedure well without any complication.
[2021-06-02] MEDS ORDERED: IV FLUID CONTINUATION 650 ML IV ONE (10:37)
[2021-06-02 10:53] VITALS: PULSE 62
[2021-06-02] MEDS: hydrALAZINE HCL 20 MG/ML 1 ML VIAL IV PRN ×2 (10:58→10:59)
[2021-06-02 11:45] VITALS: BP 144/89
--- NOTE | 2021-06-02 12:37 | FL ---
Fluoroscopy HISTORY: Pain 6 seconds fluoroscopy time supplied to the referring clinician. 1 intraoperative C-arm images docume nt the procedure. See dictated report from anesthesia.
== END 2021-06-02 11:40 | disposition home or self-care (01) ==
LOC: ORPAIN 09:38
PROVIDERS: ATTEND Specialist
DX: M46.1 Sacroiliitis, not elsewhere classified (principal)
CPT/HCPCS: 27096; J2250; J0360; J1030; J3010; J2795; 99152

== ENCOUNTER 2021-10-06 09:53 | Day surgery (SDC) | payer MEDICAID ==
[2021-10-01 16:07] VITALS: BMI 28.8
[2021-10-06] MEDS ORDERED: LACTATED RINGERS 1,000 ML IV SCH (10:00)
[2021-10-06] MEDS: LACTATED RINGERS 1,000 ML IV SCH (10:12)
[2021-10-06] MEDS ORDERED: LIDOCAINE 1% (10MG/ML) FOR IV START INTRADERMA ONE (10:12)
[2021-10-06] MEDS ORDERED: MIDAZOLAM 2 MG/2 ML VIAL ONE (10:18)
[2021-10-06] MEDS ORDERED: fentaNYL (PF) 50 MCG/ML 2 ML AMP ONE ×2 (10:18→13:14)
[2021-10-06] MEDS ORDERED: methylPREDNISolone ACETATE 40 MG/ML 1 ML VIAL ONE (10:18)
[2021-10-06] MEDS ORDERED: IOPAMIDOL M200 10 ML VIAL ONE (10:18)
[2021-10-06] MEDS ORDERED: IV FLUID CONTINUATION 700 ML IV ONE (10:38)
--- NOTE | 2021-10-06 10:40 | P.PCN ---
Date of Procedure: 10/06/21 Description of Procedure: REOPERATIVE DIAGNOSIS: Sacroiliac joint dysfunction POSTOPERATIVE DIAGNOSIS: Sacroiliac joint dysfunction. PROCEDURES: 1. Right-sided Sacroiliac joint steroid injection #2 out of 2 2. Sacroiliac joint arthrogram. SURGEON: Susnane Lee ANESTHESIA: Local and IV sedation : Versed 2 mg, and fentanyl 100 g. EBL: None. Specimen removed: None Fluoroscopic image: saved to electronic medical records. PROCEDURE INDICATIONS: This patient with a history of chronic low back pain, and sacroiliac joint dysfunction. Patient tried conservative therapy. Came here for intervention management. PROCEDURE DESCRIPTION: The patient was seen and identified in the preoperative area. Risks, benefits, complications, and alternatives were discussed with the patient. The patient agreed to proceed with the procedure and signed the consent. IV was started, and vital signs were stable. Patient was taken to the OR and time out was completed. The patient was placed in the prone position on procedure table and a pillow was placed under the abdomen to reduce lumbar lordosis. The lumbosacral area was prepped and draped in the usual sterile fashion. Critical pause was taken. Vital signs were closely monitored during the procedure. For the right side, the fluoroscopic camera was placed in left oblique view and right SI joint lower pole was identified. Skin entry point was infiltrated with 1% lidocaine and 22-gauge 3.5 inch spinal needle was introduced into the inferior one-third of SI joint and after penetrating into the joint arthrogram was done. 0.5 ml of [id number] contrast was injected after negative aspiration for blood, and air and negative for paresthesia. Good spread of the contrast into the SI joint has been seen. Then again after negative aspiration of spinal fluid and blood and negative for neurological symptoms, 3 mL of a solution containing total 2 mL of 1% preservative-free lidocaine mixed with 80 mg of Depo-Medrol was injected. Needle was withdrawn intact. Skin was cleansed, and bandages were applied. COMPLICATIONS: None. DISPOSITION / PLANS: The patient was placed in a supine position and transferred to the recovery area in a stable condition for observation and was discharged from the recovery room after meeting discharge criteria. Home discharge instructions given to the patient by the staff. The patient was reexamined prior to discharge. The patient will schedule for follow-up visit with the pain clinic in 4 weeks duration. Note: Patient counseled regarding her high blood pressure, and its long-term complications. Patient clearly understood. Patient denied any red flag symptoms at this time. Patient recommended to follow-up with her primary care physician for medical management. Patient recommended to call 911 if noticed any red flag symptoms PACU: Labetalol 5 mg every 10 minutes 4, if systolic blood pressure more than 150-160 , and heart rate about 60.
[2021-10-06] MEDS: LABETALOL 5 MG/ML VIAL MDV IVP PRN ×4 (11:00→12:21)
[2021-10-06] MEDS ORDERED: hydrALAZINE HCL 20 MG/ML 1 ML VIAL ONE (12:41)
[2021-10-06] MEDS ORDERED: hydrALAZINE HCL 20 MG/ML 1 ML VIAL IVP ONE ×2 (12:44→13:21)
[2021-10-06] MEDS ORDERED: hydrALAZINE HCL 25 MG TAB PO STA (13:57)
[2021-10-06 14:28] LABS: Basophils % (A) 0 %; Eosinophils # (A) 0.1 k/uL (0-0.7); Eosinophils % (A) 1 %; HCT 45.8 % (39.0-53.0); HGB 15.7 gm/dL (13.0-17.5); Lymphocytes # (A) 1.9 k/uL (1.0-4.8); Lymphocytes % (A) 27 %; MCH 32.9 pg (25.0-35.0); MCHC 34.2 g/dL (31.0-37.0); MCV 96.1 fL (80.0-100.0); Mean Platelet Volume 10.4; Monocytes # (A) 0.4 k/uL (0-1.0); Monocytes % (A) 6 %; Neutrophils # (A) 4.3 k/uL (1.3-7.7); Neutrophils % (A) 63 %; Platelet Count 113 k/uL (150-450); RBC 4.77 m/uL (4.30-5.90); RDW 13.1 % (11.5-15.5); WBC 6.9 k/uL (3.8-10.6)
[2021-10-06] MEDS ORDERED: NEBIVOLOL 5 MG TAB PO ONE (14:30)
[2021-10-06] MEDS ORDERED: ALPRAZolam 0.25 MG TAB PO PRN (14:30)
[2021-10-06] MEDS ORDERED: NALOXONE 0.4 MG/ML 1 ML VIAL IV PRN (14:30)
[2021-10-06] MEDS ORDERED: amLODIPine 2.5 MG TAB PO ONE (14:30)
[2021-10-06] MEDS ORDERED: HYDROcodone/APAP 5-325MG 1 EACH TAB PO PRN (14:30)
[2021-10-06] MEDS ORDERED: NEBIVOLOL HCL 20 MG PO SCH (14:30)
[2021-10-06] MEDS ORDERED: amLODIPine 10 MG TAB PO SCH (14:30)
[2021-10-06] MEDS ORDERED: ACETAMINOPHEN TAB 325 MG TAB PO PRN (14:30)
[2021-10-06 14:36] LABS: African American GFR (CKD) 67 (>60 ml/min/1.73 sqM); Anion Gap 12 mmol/L; Blood Urea Nitrogen 16 mg/dL (9-20); Calcium 10.1 mg/dL (8.4-10.2); Carbon Dioxide 27 mmol/L (22-30); Chloride 98 mmol/L (98-107); Glucose 111 mg/dL (74-99); Magnesium 1.8 mg/dL (1.6-2.3); Non-African American GFR(CKD) 58 (>60 ml/min/1.73 sqM); Potassium 3.7 mmol/L (3.5-5.1); Sodium 137 mmol/L (137-145)
--- NOTE | 2021-10-06 14:40 | FL ---
Fluoroscopy HISTORY: Pain 7 seconds fluoroscopy time supplied to the referring clinician. 1 intraoperative C-arm images docume nt the procedure. See dictated report from anesthesia.
[2021-10-06] MEDS ORDERED: hydrALAZINE HCL 25 MG TAB PO PRN (15:32)
--- NOTE | 2021-10-06 15:33 | P.HPIM ---
History of Present Illness H&P Date: 10/06/21 Chief Complaint: htn urgency 51 year old man with history of PUD, HTN, sacroileitis presented for elective steroid injection into sacroiliac joint, however, was noted to be very hypertensive post operatively. Patient's only complaints were mild headache today, 1-2 out of 10, which resolved with pain medication. Patient also reported some sharp abdominal pains yesterday, which have resolved on their own as well, and does not note any pain today. Patient says he is a blood pressure cuff at home, which usually measures 140/90 maximum. Patient is compliant with his medications, except for amlodipine; continues to take benazepril and Bystolic. Patient is physically active, exercising 3-4 times per week and does not report any symptoms such as angina, dyspnea, palpitations, syncope, presyncope. Patient reports some weight loss recently and nausea, reports sweats the night before surgery, denies fevers, chills, vomiting, chest pain, cough, dyspnea, dysuria, dyschezia, numbness/weakness/tingling of extremities. In the PACU, patient was 189 max over 123 max. Heart rates were 58-78, 99% on room air. CBC shows a decreased platelet count, basic metabolic panel demonstrates elevated creatinine to 1.41. TSH was 0.98. Troponin is pending. EKG demonstrated normal sinus rhythm without any evidence of ischemia, did have borderline LVH. Prednisone my evaluation, patient had received 15 mg of IV hydralazine, 20 mg of IV labetalol. Patient is a smoker, denies recreational drugs. Patient further denies headache, weakness, history of RI or stroke. Reports history of anxiety, but does not feel anxious at this time. Review of Systems All Systems reviewed and pertinent positives and negatives noted in HPI, all other symptoms are negative Past Medical History Past Medical History: GERD/Reflux, Hypertension, Musculoskeletal Disorder Additional Past Medical History / Comment(s): right hip pain & down leg History of Any Multi-Drug Resistant Organisms: None Reported Additional Past Surgical History / Comment(s): circumcision as adult, pain procedures Past Anesthesia/Blood Transfusion Reactions: No Reported Reaction Smoking Status: Current every day smoker - Past Family History Mother Family Medical History: Cancer Medications and Allergies Home Medications Medication Instructions Recorded Confirmed Type Benazepril HCl 20 mg PO DAILY 03/09/18 10/06/21 History Nebivolol HCl [Bystolic] 10 mg PO DAILY 03/09/18 10/06/21 History Omeprazole 20 mg PO DAILY 03/09/18 10/06/21 History amLODIPine [Norvasc] 2.5 mg PO DAILY 09/17/20 10/06/21 History Allergies Allergy/AdvReac Type Severity Reaction Status Date / Time No Known Allergies Allergy Verified 10/01/21 16:03 Physical Exam Osteopathic Statement: *. No significant issues noted on an osteopathic structural exam other than those noted in the History and Physical/Consult. Vitals: Vital Signs Temp Pulse Pulse Resp BP BP BP 10/06/21 14:45 78 16 168/110 10/06/21 13:47 68 180/105 10/06/21 13:08 79 16 189/112 10/06/21 12:31 58 L 14 170/110 162/118 10/06/21 12:20 58 L 14 170/114 10/06/21 12:01 58 L 182/122 10/06/21 11:52 152/110 10/06/21 11:50 61 20 162/109 10/06/21 11:24 66 20 164/110 10/06/21 10:55 59 L 14 152/110 10/06/21 10:53 59 L 16 170/116 10/06/21 10:38 65 16 167/107 10/06/21 10:02 97.5 F L 66 16 BP Pulse Ox 10/06/21 14:45 100 10/06/21 13:47 10/06/21 13:08 100 10/06/21 12:31 99 10/06/21 12:20 98 10/06/21 12:01 10/06/21 11:52 10/06/21 11:50 99 10/06/21 11:24 99 10/06/21 10:55 96 10/06/21 10:53 99 10/06/21 10:38 98 10/06/21 10:02 180/110 98 Intake and Output 10/06/21 10/06/21 10/06/21 06:59 14:59 22:59 Intake Total 50 Balance 50 Intake: IV 50 Other: Weight 94 kg Gen: awake, alert HEENT: normocephalic, atraumatic, good hearing acuity, moist mucous membranes Resp: good air exchange, breathing comfortably with no accessory muscle use, clear to auscultation bilaterally CVS: good distal perfusion x 4, regular rate and rhythm without murmurs GI: soft, NTTP, ND : no SPT, no CVAT, simpson catheter not present MSK: no pitting edema, no clubbing Neuro: non-focal, moving all extremities Psych: cooperative, euthymic mood Results CBC & Chem 7: 10/06/21 14:17 10/06/21 14:17 Labs: Abnormal Lab Results - Last 24 Hours (Table) 10/06/21 10/06/21 Range/Units 14:17 14:17 Plt Count 113 L (150-450) k/uL Creatinine 1.41 H (0.66-1.25) mg/dL Glucose 111 H (74-99) mg/dL Assessment and Plan Assessment: Hypertensive urgency Elevated creatinine -Admit to observation, telemetry -Pending renal arterial Doppler -Pending UA, UPC -Pending troponin -Pending echo -Increased patient's home dose of amlodipine to 10 mg daily -Increased patient's Bystolic to 20 mg daily -hydralazine PRN for SBP > 180, DBP > 110 Thrombocytopenia -Unclear etiology, continue to monitor Nicotine use -Cessation counseling Sacroiliitis History of PUD -Pain control: Tylenol when necessary + [place] when necessary -PPI Patient is a full code
--- NOTE | 2021-10-06 15:44 | XR ---
EXAMINATION TYPE: XR chest 1V DATE OF EXAM: 10/06/2021 COMPARISON: NONE HISTORY: Hypertension TECHNIQUE: Single frontal view of the chest is obtained. FINDINGS: There is no focal air space opacity, pleural effusion, or pneumothorax seen. The cardiac silhouette size is within normal limits. The osseous structures are intact. IMPRESSION: No acute process.
--- NOTE | 2021-10-06 15:56 | US ---
EXAMINATION TYPE: US renal artery duplex complet DATE OF EXAM: 10/06/2021 COMPARISON: NONE CLINICAL HISTORY: CKD, secondary hypertension work up. MEASUREMENTS: RENAL SIZE: Rt Kidney: 11.6 x 5.6 x 6.3 cm Lt Kidney: 10.7 x 5.9 x 6.4 cm RESISTANCE INDEX Right: 0.62 Left: 0.59 RA/AO RATIO (< 3.5 ) Right: 1.3 Left: 1.2 RA VELOCITY ( < 180 cm/s) Right: 151 Left: 140 No ultrasound evidence for renal artery stenosis. Aorta and renal arteries are unremarkable. Good ups troke on segmentals at renal hilum. Low resistive waveforms noted throughout. IMPRESSION: No suspicious changes to suggest renal artery stenosis
[2021-10-07] MEDS ORDERED: PANTOPRAZOLE 40 MG TABLET PO SCH (07:30)
[2021-10-07 07:54] LABS: Glucose,Whole Blood 110 mg/dL (75-99)
[2021-10-07] MEDS ORDERED: amLODIPine 2.5 MG TAB PO SCH (09:00)
[2021-10-07] MEDS ORDERED: lisinopriL 20 MG TAB PO SCH (09:00)
[2021-10-07] MEDS ORDERED: amLODIPine 10 MG TAB PO SCH (09:00)
[2021-10-07] MEDS ORDERED: NEBIVOLOL 5 MG TAB PO SCH (09:00)
[2021-10-07] MEDS ORDERED: NEBIVOLOL HCL 10 MG PO SCH (09:00)
[2021-10-07 09:25] VITALS: TEMP 98.2
[2021-10-07 10:47] LABS: African American GFR (CKD) 67.4 (60.0-200.0); Anion Gap 14.2 mmol/L (10.00-18.00); BUN/Creat Ratio 11.79 Ratio (12.00-20.00); Blood Urea Nitrogen 16.5 mg/dL (9.0-27.0); Calcium 10.1 mg/dL (8.7-10.3); Carbon Dioxide 25.8 mmol/L (20.0-27.5); Non-African American GFR(CKD) 58.2 (60.0-200.0); Potassium 3.8 mmol/L (3.5-5.5)
[2021-10-07 11:02] LABS: Basophils # (A) 0.03 X 10*3/uL (0.00-0.10); Basophils % (A) 0.4 %; Eosinophils # (A) 0.03 X 10*3/uL (0.04-0.35); Eosinophils % (A) 0.4 %; HCT 46.3 % (39.6-50.0); HGB 15.5 g/dL (13.0-17.0); Lymphocytes # (A) 2.16 X 10*3/uL (0.90-5.00); Lymphocytes % (A) 30.1 %; MCH 30.9 pg (27.0-32.0); MCHC 33.5 g/dL (32.0-37.0); MCV 92.4 fL (80.0-97.0); Mean Platelet Volume 12.3 fL (9.5-12.2); Monocytes % (A) 9.8 %; Neutrophils # (A) 4.21 X 10*3/uL (1.80-7.70); Neutrophils % (A) 58.7 %; Platelet Count 129 X 10*3/uL (140-440); RBC 5.01 X 10*6/uL (4.40-5.60); RDW 13.3 % (11.5-14.5); WBC 7.17 X 10*3/uL (4.50-10.00)
[2021-10-07] MEDS: LACTATED RINGERS 1,000 ML IV SCH (11:34)
[2021-10-07 12:28] LABS: Appearance,Urine Clear (Clear); Bilirubin,Urine Negative (Negative); Blood,Urine Negative (Negative); Color,Urine Yellow; Glucose,Urine (UA) Negative (Negative); Ketones,Urine Negative (Negative); Leukocyte Esterase,Urine Negative (Negative); Nitrite,Urine Negative (Negative); PH, Urine 6.5 (5.0-8.0); Protein,Urine Negative (Negative); Specific Gravity,Urine 1.015 (1.001-1.035); Urobilinogen,Urine <2.0 mg/dL (<2.0)
--- NOTE | 2021-10-07 13:12 | P.CNOR ---
History of Present Illness - [facility] Consult date: 10/07/21 Requesting physician: Dennys Moreno Consult reason: other (sacroileitis) History of present illness: Patient is a 51-year-old male presenting the hospital for SI joint injection. Plan was for patient to go home same day, however, in recovery patient had uncontrolled hypertension for which he has been admitted. Patient was seen at bedside this morning resting comfortably lying semirecumbent in bed with friend/family member at bedside. We are consulted for SI joint dysfunction. Patient says he has had 4 steroid injection the past. He says they usually work for about 3 months at a time. Patient says he has followed with Dr. Araiza in the outpatient setting for this problem. He says he does have another appointment with Dr. Araiza at the end of this month. Patient denies any other previous orthopedic surgical history. Patient says most of the pain he has is over his buttocks on the right side as well as the right groin. Sometimes, patient does say he gets pain that radiates down his right leg into his foot. Patient states this somewhat random in nature. Patient exercises a few times a week and ambulates independently. Patient denies chest pain, fever, shortness breath, nausea, vomiting, change in vision, loss of bowel/bladder control. Past Medical History Past Medical History: GERD/Reflux, Hypertension, Musculoskeletal Disorder Additional Past Medical History / Comment(s): right hip pain & down leg History of Any Multi-Drug Resistant Organisms: None Reported Additional Past Surgical History / Comment(s): circumcision as adult, pain procedures Past Anesthesia/Blood Transfusion Reactions: No Reported Reaction Past Psychological History: Anxiety Additional Psychological History / Comment(s): recent loss of sibling Smoking Status: Current every day smoker Past Alcohol Use History: Occasional Additional Past Alcohol Use History / Comment(s): smoker for 20 years 2 cig/day Past Drug Use History: None Reported - Past Family History Mother Family Medical History: Cancer Medications and Allergies Home Medications Medication Instructions Recorded Confirmed Type Benazepril HCl 20 mg PO DAILY 03/09/18 10/06/21 History Nebivolol HCl [Bystolic] 10 mg PO DAILY 03/09/18 10/06/21 History Omeprazole 20 mg PO DAILY 03/09/18 10/06/21 History amLODIPine [Norvasc] 2.5 mg PO DAILY 09/17/20 10/06/21 History Allergies Allergy/AdvReac Type Severity Reaction Status Date / Time No Known Allergies Allergy Verified 10/01/21 16:03 Physical Examination Inspection: Negative for any open fractures, ecchymosis, erythema, nodules Palpation: TTP over the right and left SI joints. Nontender to palpation throughout rest exam Sensation: Sensation is equal, symmetric, bilaterally intact throughout upper and lower extremities Range of motion: Patient has full range of motion bilateral upper and lower extremities Motor: 4+/5 in all major motor groups upper and lower extremities Neurovascular status: Radial pulse intact, present bilaterally. Capillary refill below 3 seconds bilaterally and digits of hand. Special tests: Negative Homans bilaterally; negative clonus bilaterally Results - Labs Labs: Abnormal Lab Results - Last 24 Hours (Table) 10/06/21 10/06/21 10/07/21 Range/Units 14:17 14:17 07:52 Plt Count 113 L (150-450) k/uL Creatinine 1.41 H (0.66-1.25) mg/dL Glucose 111 H (74-99) mg/dL POC Glucose (mg/dL) 110 H (75-99) mg/dL H & H 10/06/21 Range/Units 14:17 Hgb 15.7 (13.0-17.5) gm/dL Hct 45.8 (39.0-53.0) % Result Diagrams: 10/07/21 07:15 10/07/21 07:15 Assessment and Plan Assessment: 1. SI joint dysfunction - POD #1 s/p right SI joint steroid injection 2. Hypertension Plan: 1. SI joint dysfunction - right SI joint injection performed yesterday, Tuesday on 10/06/2021. Patient stable at bedside this morning. I did discuss findings with Dr. Araiza. At this time we do not recommend any emergent/urgent orthopedic surgical intervention. We do recommend patient to keep his appointment with us and follow-up in the outpatient setting. Patient is stable from orthopedic standpoint for discharge. At this time orthopedics is signing off. Please do hesitate to contact us for any further questions 2. Appreciate medical management 3. Pain management - patient received right SI joint surgery injection yesterday, 10/06/2021. [place]; Tylenol 4. GI prophylaxis - Protonix 5. PT/OT - weightbearing as tolerated Time with Patient: Less than 30
[2021-10-07 15:26] VITALS: BP 138/100; PULSE 77; RESP 18
--- NOTE | 2021-10-07 18:23 | P.DS ---
Providers Date of admission: 10/06/2021 Expected date of discharge: 10/07/21 Attending physician: Dennys Moreno MD Primary care physician: Stated None Hospital Course: Hypertensive urgency Elevated creatinine -Admitted to observation, telemetry with no events on monitor. Renal arterial Doppler was negative for stenosis. UA, UPC were normal. Trops were negative, EKG non-ischemic with borderline LVH. Echo demonstrated EF 60-65%, no WMA, moderate LVH. Increased patient's home dose of amlodipine to 10 mg daily. Increased patient's Bystolic to 20 mg daily. hydralazine PRN for SBP > 180, DBP > 110 which was required once. Pts BP improved to 138/100. Thrombocytopenia -Unclear etiology, continue to monitor as outpatient, but improving on recheck Nicotine use -Cessation counseling provided. Sacroiliitis History of PUD -Pain control: Tylenol when necessary + [place] when necessary -PPI Assessment: Gen: awake, alert HEENT: normocephalic, atraumatic, good hearing acuity, moist mucous membranes Resp: good air exchange, breathing comfortably with no accessory muscle use, clear to auscultation bilaterally CVS: good distal perfusion x 4, regular rate and rhythm without murmurs GI: soft, NTTP, ND : no SPT, no CVAT, simpson catheter not present MSK: no pitting edema, no clubbing Neuro: non-focal, moving all extremities Psych: cooperative, euthymic mood Patient Condition at Discharge: Good Plan - Discharge Summary Discharge Rx Participant: No New Discharge Prescriptions: New Acetaminophen Tab [Tylenol] 650 mg PO Q6HR PRN tab PRN Reason: Mild Pain Or Fever > 100.5 Continue Benazepril HCl 20 mg PO DAILY Omeprazole 20 mg PO DAILY Changed Nebivolol HCl [Bystolic] 20 mg PO DAILY #60 tab amLODIPine [Norvasc] 10 mg PO DAILY #120 tab Discharge Medication List Benazepril HCl 20 mg PO DAILY 03/09/18 [History] Omeprazole 20 mg PO DAILY 03/09/18 [History] Acetaminophen Tab [Tylenol] 650 mg PO Q6HR PRN tab 10/07/21 [Rx] Nebivolol HCl [Bystolic] 20 mg PO DAILY #60 tab 10/07/21 [Rx] amLODIPine [Norvasc] 10 mg PO DAILY #120 tab 10/07/21 [Rx] Discharge/Stand Alone Forms: [facility] Pain/Serinamer Instructions Discharge Disposition: HOME SELF-CARE
[2021-10-08 01:13] LABS: Potassium,Urine Random 31.3 mmol/L (25.0-125.0)
== END 2021-10-07 15:32 | disposition home or self-care (01) ==
LOC: ORPAIN 09:53 → 6NMEDSUR 16:35 → ORPAIN 10-07 15:32
PROVIDERS: ATTEND Internal Medicine
DX: G89.29 Other chronic pain (principal); M53.3 Sacrococcygeal disorders, not elsewhere classified; I10 Essential (primary) hypertension; Z79.899 Other long term (current) drug therapy
CPT/HCPCS: 93306; 84300; 82570 ×2; 80048 ×2; 84443; 84133; 84156; 83735 ×2; 84484; 85025 ×2; 81003; 71045; 93975; 27096; J2250; J0360; J1030; J3010; Q9966; 99152

== ENCOUNTER 2022-01-08 12:59 | Day surgery (SDC) | payer MEDICAID ==
[2022-01-07 09:14] VITALS: BMI 28.5
[~2022-01-08 12:59] MED LIST changes: +LIDOCAINE 1% (10MG/ML) FOR IV START INTRADERMA PRN
[2022-01-08 13:11] VITALS: TEMP 97.2
[2022-01-08] MEDS ORDERED: fentaNYL (PF) 50 MCG/ML 2 ML AMP ONE (14:07)
[2022-01-08] MEDS ORDERED: ROPIVACAINE 5MG/ML 20ML VIAL ONE (14:07)
[2022-01-08] MEDS ORDERED: methylPREDNISolone ACETATE 40 MG/ML 1 ML VIAL ONE (14:07)
[2022-01-08] MEDS ORDERED: MIDAZOLAM 2 MG/2 ML VIAL ONE (14:07)
--- NOTE | 2022-01-08 14:21 | P.PCN ---
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 POSTOPERATIVE DIAGNOSIS: 1- Lumbar spondylosis with Facet Arthropathy without myelopathy . PROCEDURE: Diagnostic Right L4 , and L5 medial branch block under fluoroscopy guidance(fluoroscopy images available in the radiology Department ) ( To target the facet joint between Right L5-S1 ) ANESTHESIA:, Monitered anesthesia care as per anesthesia department EBL: Minimal COMPLICATION: None PROCEDURE INDICATION: Chronic low back pain secondary to Facet arthropathy unresponsive to conservative treatment. PROCEDURE DESCRIPTION: the patient was seen and identified in the preop holding area , risks and benefits and possible complications of the procedure and alternative were discussed with the patient, and the patient agreed to proceed with the procedure and signed the consent and vital signs monitored during the procedure and fluoroscopy was used to maximize the benefit and accuracy of the needle placement, and sedation was given to decrease patient anxiety, patient was taken to the procedure room and placed in prone position vital signs monitored in the back prepped with chlorhexidine X3 then under strict sterile technique using a right oblique fluoroscopy ,the junction of the transverse process and the superior articulating process of the right L4 , and L5 vertebra which corresponding to the fluoroscopy image of the eye of the [place] dog on the block side for the medial branches and subsequently , after local infiltration of skin and subcu tissuies with Ropivacaine 0.5 % , one mL at each level ,then 22-gauge Quincke-type needles , 2 needle was used , each one of them placed at the junction of the base of the transverse process and the superior articular process at the appropriate level, and the needle was advanced until the periosteum contacted, needle placement confirmed with AP oblique and lateral view and after appropriate needle placement confirmed, and after negative aspiration for heme and CSF and there was no paresthesia 1mL of Ropivacaine 0.5% mixed with 20 mg Depo-Medrol , then half mL injected at each level after negative aspiration the needle subsequently removed At the end of the procedure and the needles removed and a bandage applied after the skin was cleaned the cleaning solution patient taken to recovery room in stable condition and monitors in the recovery room for 20-30 minutes and discharged home in stable condition after discharge criteria met and patient will follow up with the pain clinic in 2-4 weeks
[2022-01-08 14:25] VITALS: PULSE 64; RESP 16
--- NOTE | 2022-01-08 14:26 | FL ---
EXAMINATION TYPE: FL guided pain mgmt statistic DATE OF EXAM: 01/08/2022 HISTORY: Fluoroscopy time 4 seconds of fluoroscopy provided. IMPRESSION: 1. Fluoroscopy time.
[2022-01-08 14:44] VITALS: BP 123/82
[2022-01-08] MEDS ORDERED: IV FLUID CONTINUATION 1,000 ML IV ONE (14:44)
== END 2022-01-08 14:48 | disposition home or self-care (01) ==
LOC: ORPAIN 12:59
PROVIDERS: ATTEND Specialist
DX: M47.816 Spondylosis without myelopathy or radiculopathy, lumbar region (principal)
CPT/HCPCS: 64493; J2250; J1030; J3010; J2795

== ENCOUNTER → 2022-02-25 | Outpatient (CLI) | payer MEDICAID ==
--- NOTE | 2022-02-25 07:49 | MR ---
EXAMINATION TYPE: MR sacroiliac joints wo con DATE OF EXAM: 02/25/2022 COMPARISON: MRI pelvis February 14, 2018 HISTORY: JOint pain, sacroilitis Standard multiplanar, multisequence MRI departmental protocol Multiplanar, multisequence images of the pelvis were acquired without contrast. Diffusion weighted im aging was performed. FINDINGS: Sacroiliac joints show area of diminished T1 and T2 signal with surrounding increased T2 si gnal in the right iliac bone adjacent to the sacroiliac joint coronal image 8 and axial image 9 tiny area of increased T2 signal or edema on coronal STIR weighted images in the right iliac bone coronal images 8 and 9 and to lesser degree in the left iliac bone coronal image 7 is present. Sacroiliac mayela nts appear symmetric. No obvious spurring is seen. Remainder of the pelvic structures show no concerning pelvic fluid. No abnormal bowel dilatation is s een. Remainder osseous structures are intact. IMPRESSION: Some mild changes related to sacroiliitis are felt to be present as detailed above
== END | disposition home or self-care (01) ==
LOC: RADMRIMAIN 06:10
PROVIDERS: ATTEND Orthopaedic Surgery
DX: M46.1 Sacroiliitis, not elsewhere classified (principal)
CPT/HCPCS: 72195

== ENCOUNTER → 2022-04-27 | Outpatient (CLI) | payer MEDICAID ==
--- NOTE | 2022-04-27 22:24 | MR ---
EXAMINATION TYPE: MR thoracic spine wo/w con DATE OF EXAM: 04/27/2022 1:56 PM COMPARISON: No priors. INDICATION: Patient age:Male; 51 years old; Reason for study: Z125; [facility]. TECHNIQUE: Multi planar, multi sequence imaging was performed utilizing: T1-weighted and T2-weighted of the thoracic spine. IV Contrast: 9 cc Gadavist FINDINGS: The thoracic vertebral bodies have preserved heights and alignment. The osseous structure have normal signal intensity. Thoracic spinal cord appears unremarkable. There is no evidence of extradural defe cts or central spinal canal narrowing at any thoracic vertebral body level. Intervertebral discs dem onstrate normal signal intensity. No abnormal postcontrast enhancement. IMPRESSION: Normal MRI of the thoracic spine without evidence of mass or process to explain the patient's pain..
== END | disposition home or self-care (01) ==
LOC: RADMRIMAIN 10:45
PROVIDERS: ATTEND Surgery Surgical Oncology
DX: Z12.5 Encounter for screening for malignant neoplasm of prostate (principal); D48.0 Neoplasm of uncertain behavior of bone and articular cartilage
CPT/HCPCS: 72157; A9585

== ENCOUNTER → 2022-04-28 | Outpatient (CLI) | payer MEDICAID ==
--- NOTE | 2022-04-29 07:28 | MR ---
EXAMINATION TYPE: MR pelvis wo/w con DATE OF EXAM: 04/28/2022 COMPARISON: HISTORY: Neoplasm of uncertain behavior of bone. Family history of bone tumor CONTRAST: Standard multiplanar, multisequence MRI departmental protocol images were obtained without contrast a nd with 9 mL intravenous Gadavist gadolinium contrast. The pelvic ring is intact. The proximal femurs and hip joints appear normal. Hip joint spaces are nor mal. The sacroiliac joints appear intact. No evidence of a pelvic mass. Bladder distends smoothly. Ur inary bladder is almost empty. Prostate is intact. No inguinal hernia. No evidence of focal bone dest ruction. Acetabula appear intact. Sacroiliac joint spaces are normal. No evidence of bone edema. No p athologic enhancement. There is normal contrast opacification of the pelvic vessels. No evidence of a n aneurysm. There is 1.5 cm area of nonenhancing cystic changes in the right iliac bone adjacent to t he sacroiliac joint and not significantly different than previous MR scan of 02/25/2022. This is proba brian some degenerative cyst formation. No pathologic enhancement. IMPRESSION: No significant abnormality in the MR scan of the pelvis.
== END | disposition home or self-care (01) ==
LOC: RADMRIMAIN 17:51
PROVIDERS: ATTEND Surgery Surgical Oncology
DX: D48.0 Neoplasm of uncertain behavior of bone and articular cartilage (principal); M46.1 Sacroiliitis, not elsewhere classified; Z82.69 Family history of other diseases of the musculoskeletal system and connective tissue
CPT/HCPCS: 72197; A9585

== ENCOUNTER 2022-05-19 14:22 | Emergency (ER) | payer MEDICAID ==
[2022-05-19 14:47] VITALS: TEMP 98
[2022-05-19] MEDS ORDERED: MORPHINE SULFATE 4 MG/ML SYRINGE IV STA (15:43)
[2022-05-19] MEDS ORDERED: cloNIDine HCL 0.1 MG TAB PO STA ×2 (15:43→16:52)
--- NOTE | 2022-05-19 15:44 | ED ---
General Adult HPI - General Chief complaint: Recheck/Abnormal Lab/Rx Stated complaint: PCP sent high BP Time Seen by Provider: 05/19/22 15:26 Source: patient Mode of arrival: ambulatory Limitations: no limitations - History of Present Illness Initial comments: Patient complains of elevated blood pressure. He thinks it is related to the pain in his right hip. He is planning on having surgery on the hip. He takes medication for blood pressure. He has no back pain. He has no nausea. He has no diaphoresis. He has no weakness. He has no paresthesias. He has no lightheadedness. He was sent to the emergency department for his elevated blood pressure. - Related Data Home Medications Medication Instructions Recorded Confirmed Benazepril HCl 20 mg PO DAILY 03/09/18 05/19/22 Omeprazole 20 mg PO DAILY 03/09/18 05/19/22 DULoxetine HCL 20 mg PO DAILY 05/19/22 05/19/22 Ergocalciferol (Vitamin D2) 1,250 mcg PO MILLAN 05/19/22 05/19/22 [Drisdol (50,000 Iu)] Meloxicam [Mobic] 15 mg PO DAILY PRN 05/19/22 05/19/22 Nebivolol HCl [Bystolic] 20 mg PO DAILY 05/19/22 05/19/22 Pregabalin [Lyrica] 150 mg PO BID 05/19/22 05/19/22 amLODIPine [Norvasc] 5 mg PO BID 05/19/22 05/19/22 Allergies Allergy/AdvReac Type Severity Reaction Status Date / Time No Known Allergies Allergy Verified 05/19/22 16:00 Review of Systems ROS Statement: Those systems with pertinent positive or pertinent negative responses have been documented in the HPI. ROS Other: All systems not noted in ROS Statement are negative. Past Medical History Past Medical History: GERD/Reflux, Hypertension, Musculoskeletal Disorder Additional Past Medical History / Comment(s): right hip pain & down leg History of Any Multi-Drug Resistant Organisms: None Reported Additional Past Surgical History / Comment(s): circumcision as adult, pain procedures Past Anesthesia/Blood Transfusion Reactions: No Reported Reaction Past Psychological History: Anxiety Smoking Status: Current every day smoker - Past Family History Mother Family Medical History: Cancer General Exam Limitations: no limitations General appearance: alert, in no apparent distress Head exam: Present: atraumatic, normocephalic, normal inspection Eye exam: Present: normal appearance, PERRL, EOMI. Absent: scleral icterus, conjunctival injection, periorbital swelling ENT exam: Present: normal exam, mucous membranes moist Neck exam: Present: normal inspection. Absent: tenderness, meningismus, lymphadenopathy Respiratory exam: Present: normal lung sounds bilaterally. Absent: respiratory distress, wheezes, rales, rhonchi, stridor Cardiovascular Exam: Present: regular rate, normal rhythm, normal heart sounds. Absent: systolic murmur, diastolic murmur, rubs, gallop, clicks GI/Abdominal exam: Present: soft, normal bowel sounds. Absent: distended, tenderness, guarding, rebound, rigid Extremities exam: Present: normal inspection, full ROM, normal capillary refill. Absent: tenderness, pedal edema, joint swelling, calf tenderness Back exam: Present: normal inspection Neurological exam: Present: alert, oriented X3, CN II-XII intact Psychiatric exam: Present: normal affect, normal mood Skin exam: Present: warm, dry, intact, normal color. Absent: rash Course Vital Signs 05/19/22 05/19/22 05/19/22 14:44 16:13 16:14 Temperature 98.0 F Pulse Rate 77 70 66 Respiratory 20 20 18 Rate Blood Pressure 187/124 164/116 175/113 O2 Sat by Pulse 99 99 96 Oximetry 05/19/22 16:30 Temperature Pulse Rate 63 Respiratory 18 Rate Blood Pressure 175/113 O2 Sat by Pulse 98 Oximetry EKG Findings - EKG Comments: EKG Findings:: Twelve-lead EKG shows ventricular rate 68 bpm, normal NM interval and QRS complexes, no ST elevation or depression, interpreted by me as normal sinus rhythm. Medical Decision Making - Medical Decision Making Patient sent to the hospital for elevated blood pressure. His workup is entirely unremarkable. There is no evidence of an acute emergency. He is stable for discharge. - Lab Data Result diagrams: 05/19/22 15:47 05/19/22 15:47 Lab Results 05/19/22 05/19/22 05/19/22 Range/Units 15:47 15:47 15:47 WBC 6.8 (3.8-10.6) k/uL RBC 4.35 (4.30-5.90) m/uL Hgb 14.3 (13.0-17.5) gm/dL Hct 42.2 (39.0-53.0) % MCV 97.0 (80.0-100.0) fL MCH 33.0 (25.0-35.0) pg MCHC 34.0 (31.0-37.0) g/dL RDW 14.1 (11.5-15.5) % Plt Count 130 L (150-450) k/uL MPV 10.8 Neutrophils % 60 % Lymphocytes % 33 % Monocytes % 4 % Eosinophils % 1 % Basophils % 1 % Neutrophils # 4.1 (1.3-7.7) k/uL Lymphocytes # 2.2 (1.0-4.8) k/uL Monocytes # 0.3 (0-1.0) k/uL Eosinophils # 0.1 (0-0.7) k/uL Basophils # 0.0 (0-0.2) k/uL Sodium 140 (137-145) mmol/L Potassium 3.9 (3.5-5.1) mmol/L Chloride 103 (98-107) mmol/L Carbon Dioxide 23 (22-30) mmol/L Anion Gap 14 mmol/L BUN 17 (9-20) mg/dL Creatinine 1.32 H (0.66-1.25) mg/dL Est GFR (CKD-EPI)AfAm 73 (>60 ml/min/1.73 sqM) Est GFR (CKD-EPI)NonAf 63 (>60 ml/min/1.73 sqM) Glucose 96 (74-99) mg/dL Calcium 9.4 (8.4-10.2) mg/dL Magnesium 1.6 (1.6-2.3) mg/dL Total Bilirubin 0.5 (0.2-1.3) mg/dL AST 65 H (17-59) U/L ALT 37 (4-49) U/L Alkaline Phosphatase 79 (38-126) U/L Troponin I <0.012 (0.000-0.034) ng/mL Total Protein 7.4 (6.3-8.2) g/dL Albumin 4.5 (3.5-5.0) g/dL Disposition Clinical Impression: Hypertension Disposition: HOME SELF-CARE Condition: Good Is patient prescribed a controlled substance at d/c from ED?: No Referrals: Kelly Roblero MD [Primary Care Provider] - 1-2 days
[2022-05-19 16:22] LABS: Basophils % (A) 1 %; Eosinophils # (A) 0.1 k/uL (0-0.7); Eosinophils % (A) 1 %; HCT 42.2 % (39.0-53.0); HGB 14.3 gm/dL (13.0-17.5); Lymphocytes # (A) 2.2 k/uL (1.0-4.8); Lymphocytes % (A) 33 %; Mean Platelet Volume 10.8; Monocytes # (A) 0.3 k/uL (0-1.0); Monocytes % (A) 4 %; Neutrophils # (A) 4.1 k/uL (1.3-7.7); Neutrophils % (A) 60 %; Platelet Count 130 k/uL (150-450); RBC 4.35 m/uL (4.30-5.90); RDW 14.1 % (11.5-15.5); WBC 6.8 k/uL (3.8-10.6)
--- NOTE | 2022-05-19 16:29 | XR ---
EXAMINATION TYPE: XR chest 1V portable DATE OF EXAM: 05/19/2022 COMPARISON: Chest x-ray October 06, 2021 HISTORY: Chest pain. TECHNIQUE: Single AP portable frontal upright view of the chest is obtained. FINDINGS: There is no suspicious focal air space opacity, pleural effusion, or pneumothorax seen. T he cardiac silhouette size is stable and within normal limits. Overlying EKG leads current study. T he osseous structures are intact. IMPRESSION: No acute process. No significant change from prior.
[2022-05-19 16:48] LABS: Albumin 4.5 g/dL (3.5-5.0); Calcium 9.4 mg/dL (8.4-10.2); Magnesium 1.6 mg/dL (1.6-2.3); Potassium 3.9 mmol/L (3.5-5.1); Total Bilirubin 0.5 mg/dL (0.2-1.3); Total Protein 7.4 g/dL (6.3-8.2)
[2022-05-19 17:27] VITALS: BP 170/114; PULSE 59; RESP 20
== END 2022-05-19 17:55 | disposition home or self-care (01) ==
LOC: EC 14:22
DX: I10 Essential (primary) hypertension (principal); K21.9 Gastro-esophageal reflux disease without esophagitis; F17.200 Nicotine dependence, unspecified, uncomplicated; Z79.899 Other long term (current) drug therapy
CPT/HCPCS: 36415; 93005; 80053; 83735; 84484; 85025; 71045; 99284; 96374; J2270

== ENCOUNTER → 2022-07-07 | Outpatient (CLI) | payer MEDICAID ==
[2022-07-07 14:34] LABS: Basophils # (A) 0.03 X 10*3/uL (0.00-0.10); Basophils % (A) 0.5 %; Eosinophils # (A) 0.02 X 10*3/uL (0.04-0.35); Eosinophils % (A) 0.3 %; HCT 39.3 % (39.6-50.0); HGB 13.7 g/dL (13.0-17.0); Immature Grans, Automated 0.6 %; Lymphocytes % (A) 37.7 %; MCH 31.9 pg (27.0-32.0); MCHC 34.9 g/dL (32.0-37.0); MCV 91.6 fL (80.0-97.0); Mean Platelet Volume 12.1 fL (9.5-12.2); Monocytes % (A) 10.5 %; NRBC Per 100 WBC 0 /100 WBCS (0.0-0.0); Neutrophils # (A) 3.35 X 10*3/uL (1.80-7.70); Neutrophils % (A) 50.4 %; Platelet Count 160 X 10*3/uL (140-440); RBC 4.29 X 10*6/uL (4.40-5.60); RDW 14.3 % (11.5-14.5); WBC 6.64 X 10*3/uL (4.50-10.00)
[2022-07-07 15:26] LABS: African American GFR (CKD) 58.3 (60.0-200.0); BUN/Creat Ratio 12.28 Ratio (12.00-20.00); Blood Urea Nitrogen 19.4 mg/dL (9.0-27.0); Calcium 9.6 mg/dL (8.7-10.3); Carbon Dioxide 24.9 mmol/L (20.0-27.5); Non-African American GFR(CKD) 50.3 (60.0-200.0); Potassium 3.7 mmol/L (3.5-5.5)
== END | disposition home or self-care (01) ==
LOC: LABPAT 10:27
PROVIDERS: ATTEND Orthopaedic Surgery
DX: Z01.812 Encounter for preprocedural laboratory examination (principal); M46.1 Sacroiliitis, not elsewhere classified; Z22.322 Carrier or suspected carrier of Methicillin resistant Staphylococcus aureus
CPT/HCPCS: 80048; 85025; 87070

== ENCOUNTER 2022-07-15 10:42 | Day surgery (SDC) | payer MEDICAID ==
--- NOTE | 2022-07-15 09:46 | P.HPOR ---
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 Trauma or injury No Work-Related No Pain description aching. Location diffuse Activity Modification yes, unable to stand or ambulate for extended periods of time. Hand Dominance right TREATMENTS COMPLETED: 6 weeks of PT completed? No, trialed course prior to 2019. Physician directed home exercise completed? yes , daily with no improvements Medications yes List: Aleve with no improvements. Meloxicam with mild relief. Alternative interventions Chiropractic: No Massage therapy: No Brace: Yes (SI belt) How long was brace worn? Wears intermittently as pain flares. Did it help? yes Injections Yes (right SI joint) 10/06/21 How many? 3 Did they help? found near complete relief with the first SI injection but pain has since returned. The most recent injection on 10/06/2021 he found 80% relief for 1 month but symptoms have returned. RFA: No SUBJECTIVE: Mr. Michael returns to the office for a pre-operative recheck of their planned right SI join fusion. Since the time of the last appointment the patient reports no changes to his symptoms as previously. Overall the patient has seen a progressive increase in symptoms since their onset. Mr. Michael symptoms are exacerbated with prolonged standing, sitting, ambulation, and high impact movements like walking up and down the stairs, due to this they notes that it is increasingly difficult for Mr. Michael to complete many of their daily tasks. Patient is having severe sleep disturbances as well due to their ongoing pain and associated symptoms. Regarding treatments, the patient has previously trialed all abovementioned treatment modalities without relief of his symptoms. Otherwise the patient denies any f/c/sob/cp, no incision concerns, no bladder or bowel retention/incontinence, no perineal numbness/tingling, and ambulates independently. HPI: Mr. Michael last returned to the office on 06/03/2022 for a recheck of their right sacroiliitis. Since the time of the last appointment the patient reports no changes to his symptoms. Noting continued right side low back and buttock pain radiating into the right lower extremity. Overall the patient has seen a progressive increase in symptoms since their onset. Mr. Michael symptoms are exacerbated with prolonged standing and ambulation, due to this they notes that it is increasingly difficult for Mr. Michael to complete many of their daily tasks. Patient is having severe sleep disturbances as well due to their ongoing pain and associated symptoms. Regarding treatments, the patient has previously trialed all abovementioned treatment modalities without relief of his symptoms. Patient denies trialing any other modalities at this time. For their symptoms, the patient has been taking [place] with mild/temporary relief. Otherwise the patient denies any f/c/sob/cp, no incision concerns, no bladder or bowel retention/incontinence, no perineal numbness/tingling, and ambulates independently. Of note the patient reports that he did follow up with Dr. Hodge and the SI joint lesion was ruled out for metastatic processes. Mr. Michael last presented to the office on 03/18/2022 for a recheck of his right sacroiliitis. Since the time of the last appointment the patient denies any improvements to his symptoms. Patient continues to complain of primarily right side low back and buttock pain radiating into the right lower extremity. Overall his pain is quite severe and significantly impacting his ability to complete daily activities. His symptoms are exacerbated with prolonged standing and ambulation which is making completion of most daily tasks very difficult. Furthermore the patient notes that he has had success with temporarily relieve his right SI joint symptoms but has found no lasting relief. Otherwise he denies any f/c/sob/cp, no bladder or bowel retention/incontinence, no perineal numbness/tingling, and ambulates independently. Mr. Michael was last seen on 11/16/2021 regarding his right sacroiliitis. Since the time of the last appointment the patient reports that he has completed the right SI joint injection, finding 80% relief for 1 month but his symptoms have since returned. He reports that since starting his injections he has found r elief but they are becoming less effective. Additionally he has been taking Mobic 15mg as directed with mild/temporary relief. Overall he notes continued difficulty completing most of his daily tasks due to the severity of his pain. He reports continued anterior and groin pain. His symptoms are exacerbated with prolonged sitting, standing, and ambulation. Aside from the injection, the patient has trialed tylenol PRN for greater than 3 months with no improvements. Additionally, he notes that he has found no relief with the physician directed home exercise program. He reports mild improvements with the use of the SI belt, wearing this intermittently. Otherwise the patient denies any bladder or bowel retention/incontinence, no perineal numbness/tingling, and ambulates ind ependently. Mr. Michael last presented to the office on 10/26/2021 for a recheck of his right sacroiliitis. Since the time of the last appointment the patient notes that he did have a right side SI joint injection on 10/06/21. With this he noticed "near complete relief" for several days but this has since waned and is pain has return to its previously described severity. Patient notes continued difficulty completing most of his daily tasks due to the severity of his pain. He reports continued anterior and groin pain. His symptoms are exacerbated with prolonged sitting, standing, and ambulation. Aside from the injection, the patient has trialed tylenol PRN for greater than 3 months with no improvements. Additionally, he notes that he has found no relief with the physician directed home exercise program. He reports mild improvements with the use of the SI belt, wearing this intermittently.Otherwise the patient denies any bladder or bowel retention/incontinence, no perineal numbness/tingling, and ambulates independently. Mr. Michael was last seen on 05/06/21 regarding his sacroiliitis. He notes that since his last appointment he has had injections (last one done in 12/2020) into his low back, noting "70%" relief for approximately two weeks. Since then the pain has returned. He notes considerable pain and tenderness about his hips bilaterally and pain radiating down into his groin. Along with this, he reports pain radiating down along the entirety of the medial side of his right leg. His pain has continued to limit his daily activities and he is concerned about this. Along with this, the patient reports considerable pain with sitting in his right hip. He is otherwise doing well. Of note the patient presents today without the use of ambulatory aides. Patient previously presented on 10/29/20 for his sacroiliitis. He had a right side SI joint injection in 09/2020 with almost complete relief of his symptoms. He reports right sided low back pain that radiates into his right hip and down his right lower extremity. He notes that his pain increases with prolonged sitting and activity. Patient is taking Aleve as needed for pain. Patient is ambulating independently. The patients' past social, medical, family, surgical history, as well as review of systems, have been reviewed. Please refer to the Neurosurgery History and Physical form that has been scanned in to our electronic medical record system. 16 points review of systems completed and as stated in HPI, all other systems reviewed are negative. Social History: Reviewed, see appropriate section of the chart for details. P3 Social History: Smoking: Former Smoker Has been done for >1 year P3 Smoking Amount: 10/06 PPD Alcohol: currently drinks alcohol P3 Family History: Reviewed, see appropriate section of the chart for details. P2 Past Medical History: Reviewed, see appropriate section of the chart for details. [id number] Medications: Rx: omeprazole Ref: 0 Rx: amLODIPine 5 mg tablet Ref: 0 Rx: Bystolic 20 mg tablet Ref: 0 Rx: Motrin Ref: 0 Rx: TylenoL 325 mg capsule Ref: 0 Rx: Mobic 15 mg tablet Ref: 0 PHYSICAL EXAMINATION: General: Awake, alert, appropriate for age, in no acute distress. HEENT: No unusual neck masses around region of lateral neck triangle, thyroid, supraclavicular groove Heart: Regular rate and rhythm, normal S1, S2 and no murmur/gallop. Lungs: Clear to auscultation bilaterally with no use of accessory muscles. Extremities: Skin warm and dry without acute lesions, coloration, temperature, skin intact, no tenderness or erythema Integument: Hairy patches: ABSENT Dorsal skin dimples: ABSENT Cafe au lait spots: ABSENT Surgical incisions: NONE Palpation: Please see Pain drawing on Intake sheet for further detail. Midline spinal tenderness: yes SI joint on the Right Paralumbar tenderness: No E6 Parathoracic tenderness: No E6 Buttocks tenderness: No E6 Special findings: No. POSTURAL and MUSCULO-SKELETAL EVALUATION: Coronal Balance: NEUTRAL Recumbent testing: Patient is able to lay flat on back Sagittal Balance: NEUTRAL Shoulder Profile: LEVEL Pelvic Girdle: LEVEL Neck ROM: RESTRICTED Lumbar ROM: RESTRICTED Shoulder ROM: Symmetrical Hip ROM: Symmetrical Knee ROM: Symmetrical Hands: Normal appearance, symmetrical Feet: Normal appearance, Symmetrical VASCULAR STATUS : LEFT RIGHT Wrist Pulses INTACT INTACT Pedal Pulses (Dors. pedis & post.tibialis) INTACT INTACT Color NORMAL NORMAL Edema Absent Absent NEUROLOGIC EXAMINATION: Mental Status:Awake and alert, fully oriented, with normal attention, concentration and memory, and fluent, appropriate speech. Cranial Nerves: I: Olfactory not tested. II: Visual acuity normal, no visual field deficit noted with confrontation. III,IV: Normal pupillary reflexes & intact extraocular movements without nystagmus. V,: Intact symmetrical facial sensation. VII: Intact symmetrical facial motor movement VIII: Hearing intact. IX,X: Intact gag, swallow, & normal voice. XI: Sternocleidomastoid, trapezius function intact. XII: Tongue midline with normal movements. L'hermitte's Sign: Negative / absent Spurling'Sign: Absent bilaterally. Cubital percussion test: Absent bilaterally. Mathews-Tinel sign - Carpal region: Absent bilaterally. Straight Leg Raising: Absent bilaterally. Crossed straight leg raise: negative O8 SI joint testing: positive compression test on the right : lateral and anterior positive hip thrust test on the right positive Agusto's finger sign on the right Positive Tyree's test on the right MOTOR EXAM (0-5/5, N/T) UPPER EXTREMITY Shoulder Abduction Biceps Triceps Wrist Extension Hand Intrinsics Heavy Cleaner Right 5/5 5/5 5/5 5/5 5/5 5/5 Left 5/5 5/5 5/5 5/5 5/5 5/5 LOWER EXTREMITY Hip Flexion Knee Extension Knee Flexion DF PF EHL FHL Right 5/5 5/5 5/5 5/5 5/5 5/5 5/5 Left 5/5 5/5 5/5 5/5 5/5 5/5 5/5 REFLEXES(0-4/2, NT)Upper Extr emityLower Extremity Right 2 2 Left 2 2 Pathological Reflexes RIGHT LEFT Mathews's Absent Absent Clonus Absent Absent Babinski Absent Absent # Indicates mechanical impairment Muscle appearance: Symmetrical, without signs of atrophy or dystrophy. Sensory system (0-4, N/T) Test type RU YAA RL LL Joint-Position 2 2 2 2 Vibration 2 2 2 2 Pain & LT sense 2 2 2 2 Dermatomal Deficit: None None None None Gait and Functional Evaluation: Ambulatory aids: Independent Romberg's test: Intact bilaterally Toe heel walk / heel-toe walk intact while maintaining satisfactory balance? yes Squatting/straightening w/o assistance to a min of 60 degree knee flexion? yes Single leg stance: intact Trendelenburg sign negative bilaterally Hand and finger dexterity intact bilaterally? yes Disdiadochokinesis examination negative bilaterally? yes RADIOGRAPHIC STUDIES: Xray taken on 08/13/2020 of the lumbar spine and pelvis: Lumbar spine from today reveal: AP lateral flexion extension films reveal no fractures or dislocations no anterolisthesis or motion overall well-maintained alignment sagittal and coronal balance maintained. AP pelviscongruent pelvis congruent femoral mass tenderness no fracture dislocations no arthritic changes MRI scan from 05/25/2021 of Lumbar Spine: L1-L2: Normal disc appearance without desiccation. No herniation, protrusion or disc bulging. No canal stenosis is present. Foramina are patent bilaterally. L2- L3: Normal disc appearance without desiccation. No herniation, protrusion or disc bulging. No canal stenosis is present. Foramina are patent bilaterally. L2 hemangioma again seen. L3-L4: Mild disc desiccation noted in the minimal posterior disc bulge unchanged. No herniation or protrusion. No canal stenosis is present. Foramina are patent bilaterally. L4-L5: Mild disc desiccation noted in the minimal posterior disc bulge unchanged. No herniation or protrusion. No canal stenosis is present. Foramina are patent bilaterally. L5-S1: Normal disc appearance without desiccation. No herniation, protrusion or disc bulging. No canal stenosis is present. Foramina are patent bilat erally. Lumbar segments are intact. No paraspinal masses are identified. Conus medullaris has a normal appearance. IMPRESSION: 1. Stable mild degenerative disc disease and disc bulging at L3-4 and L4-5. MRI scan from 02/25/2022 of bilateral SI jointSpine: While these findings as outlined below are seens as degenerative by the radiologist, I would like a second opinion as the changes are in the sacrum and suspicious to me for lesion. FINDINGS: Sacroiliac joints show area of diminished T1 and T2 signal with surrounding increased T2 signal in the right iliac bone adjacent to the sacroiliac joint coronal image 8 and axial image 9 tiny area of increased T2 signal or edema on coronal STIR weighted images in the right iliac bone coronal images 8 and 9 and to lesser degree in the left iliac bone coronal image 7 is present. Sacroiliac joints appear symmetric. No obvious spurring is seen. Remainder of the pelvic structures show no concerning pelvic fluid. No abnormal bowel dilatation is seen. Remainder osseous structures are intact. IMPRESSION: Some mild changes related to sacroiliitis are felt to be present as detailed above MRI of the lumbar spine from 07/23/2020 reveals: no focal disc herniations no focal stenosis overall well-maintained alignment no fractures or dislocations IMPRESSION: It was my pleasure to have seen and examined Alfie. I reviewed the patient's clinical syndrome, physical findings, and imaging studies during the appointment today. It is my impression that the patient has a diagnosis of. 1. right degenerative sacroiliitis 2. Left degenerative sacroiliitis I outlined the natural course history without intervention and various interve ntional options. PLAN: Based on my findings I suggest the following course of action: - I discussed treatment options with the patient, including operative and non- operative options, and they have elected to proceed with the following surgical procedure: Right SI joint fusion (72038) The indications, risks, benefits, and alternatives to surgery were discussed with the patient at length. Specifically (but not limited to) the risks of infection, stiffness, recurrence of symptoms, need for revision surgery, local numbness, neurovascular injury, and blood clots were discussed. The patient's questions were answered.The patient would like to consider surgical options and will call the office if /when they decide to proceed. -Mr Michael and I have discussed his options. He has undergone now >6mo of overall treatment for his SI joints which have been a problem for him now for over 2 years. At this point the patient has tried four injections >6 weeks apart with at least 80% improvement with each injection but no lasting effects of the injections, his symptoms simply return and even get worse when they return. He has tried PT which has not helped. He has tried an SI belt which helped temporarily, but the pain returns when he is not wearing and it is not feasible for him to wear at all times. He has tried OTC and Rx medications without relief. His imaging including XRay, MRI and CT showed severe right sided SI arthritis changes, so much so that it prompted a consult from orthopedic oncology who evaluated him and agreed that this was just severe arthritic changes causing joint erosion. He has no lumbar pathology that would be causing his sx at this time. He has positive provocative testing of the right (and to lesser extent left) SI joints which leave him almost debilitated after the exam. We have discussed RIGHT SI FUSION as the only viable senior maintenance mechanic treatment option to relieve his pain and he agrees and is ready to pursue this treatment. Spine Surgery Risk Review Mr. Michael is presenting for evaluation of bilateral sacroiliitis. It was my pleasure to have seen and examined Mr. Michael. In our visit today we have had a chance to go over subjective complaints, physical examination findings and treatments including the natural course history without intervention and various interventional options. The patients imaging demonstrates: Xray taken on 08/13/2020 of the lumbar spine and pelvis: Lumbar spine from today reveal: AP lateral flexion extension films reveal no fractures or dislocations no anterolisthesis or motion overall well-maintained alignment sagittal and coronal balance maintained. AP pelviscongruent pelvis congruent femoral mass tenderness no fracture dislocations no arthritic changes MRI scan from 05/25/2021 of Lumbar Spine: L1-L2: Normal disc appearance without desiccation. No herniation, protrusion or disc bulging. No canal stenosis is present. Foramina are patent bilaterally. L2- L3: Normal disc appearance without desiccation. No herniation, protrusion or disc bulging. No canal stenosis is present. Foramina are patent bilaterally. L2 hemangioma again seen. L3-L4: Mild disc desiccation noted in the minimal posterior disc bulge unchanged. No herniation or protrusion. No canal stenosis is present. Foramina are patent bilaterally. L4-L5: Mild disc desiccation noted in the minimal posterior disc bulge unchanged. No herniation or protrusion. No canal stenosis is present. Foramina are patent bilaterally. L5-S1: Normal disc appearance without desiccation. No herniation, protrusion or disc bulging. No canal stenosis is present. Foramina are patent bilat erally. Lumbar segments are intact. No paraspinal masses are identified. Conus medullaris has a normal appearance. IMPRESSION: 1. Stable mild degenerative disc disease and disc bulging at L3-4 and L4-5. MRI scan from 02/25/2022 of bilateral SI jointSpine: While these findings as outlined below are seens as degenerative by the radiologist, I would like a second opinion as the changes are in the sacrum and suspicious to me for lesion. FINDINGS: Sacroiliac joints show area of diminished T1 and T2 signal with surrounding increased T2 signal in the right iliac bone adjacent to the sacroiliac joint coronal image 8 and axial image 9 tiny area of increased T2 signal or edema on coronal STIR weighted images in the right iliac bone coronal images 8 and 9 and to lesser degree in the left iliac bone coronal image 7 is present. Sacroiliac joints appear symmetric. No obvious spurring is seen. Remainder of the pelvic structures show no concerning pelvic fluid. No abnormal bowel dilatation is seen. Remainder osseous structures are intact. IMPRESSION: Some mild changes related to sacroiliitis are felt to be present as detailed above MRI of the lumbar spine from 07/23/2020 reveals: no focal disc herniations no focal stenosis overall well-maintained alignment no fractures or dislocations On physical exam, Mr. Michael demonstrates severely restricted lumbar ROM with positive Forton's finger on the right side along with positive compression test on the right : lateral and anterior, positive hip thrust test on the right, positive Tyree's test on the right. I have explained to the patient that as their condition progresses it will cause further neurological deficits and eventual paralysis. Based on the patients imaging, physical exam, and the rapid progression and disabling nature of their symptoms, at this time I recommend surgery in the form or a: Right SI joint fusion (32416). I discussed the risk and benefits of this procedure at length with Mr. Michael. The patient [significant other] agreed to considered pursuing the procedure abovementioned. Prior to surgery, she should follow up with her PCP (Cardio, ID, IM etc) for clearance. Questions were invited and answered, and the patient wishes to proceed as outlined below. Currently, I am recommendin. Right Sacroiliac joint fusion (88224) 2.Follow up with PCP for surgical clearance 3.Review of surgical risks and benefits as well as an educational packet on the proposed surgical procedure Risks: All surgical procedures come with inherent risks, including those related to positioning, anesthesia, intraoperative findings, and postoperative complications. It is important to understand that surgery does not come with any guarantee of a successful outcome as complications and adverse events are always possible. The patient was given a handout in office today discussing the surgical procedure and risks associated with the intervention, both of which were discussed with the patient. These risks include but are not limited to the f ollowing: * Experiencing same, different or even worse symptoms in back, neck, arms, or legs compared to before surgery. Requiring further surgery or other forms of treatment presently or at some time in the future at same or other levels of the intended spine surgery. On an extreme but fortunately relatively rare basis severe complication such as blindness, stroke, heart attack, temporary and/or permanent nerve injury, paralysis, coma, or may occur, sometimes without known explanation. Surgical complications may include but are not limited to risk of infection, fluid accumulation in the surgical dissection site, including a seroma or hematoma, that requires additional surgery, wound drainage, bleeding, new numbness or weakness, vision changes/loss, spinal fluid leakage, non-healing and/or infected incision, headaches, difficulty or inability to swallow, hoarseness, hemopneumothorax, pneumothorax, impotence, retrograde ejaculation, vaginal dryness; injury to nerves, spinal cord, blood vessels, lymphatics or other vital organs (i.e., bowel injury, injury to the great vessels); heterotopic bone formation; complications related to the hardware such as scre ws, rods, cages including misplaced hardware, device failure, instrumentation at the wrong spine level, hardware fracture/breakage, or hardware loosening; vertebral failure of the spinal column above or below the newly placed hardware; retained surgical instrumentations or devices and the need for further surgery. * Medical risks of the planned spine surgery include but are not limited to generalized Infections to the whole body or local areas outside of the surgical site (sepsis), heart attack, bleeding, anaphylaxis, meningitis, seizure, epilepsy, hearing loss, burn ramirez, laceration of the head or other areas of the body, bruising, hypersensitivity of the skin, bladder over distension; allergic reaction; shoulder injury related to positioning; fat, blood and air clots to other areas of the body like heart, lungs, brain; failure of internal organs such as lungs, kidneys, liver and excessive bleeding. If blood transfusions are necessary, note that transfusions may cause intolerance reactions such as anaphylaxis or other complex reactions. Despite best efforts, the results of spine surgery might not heal in terms of bone, soft tissues such as skin, fascia, ligaments, and joints. Additionally, in order to achieve best possible results, spine surgery may be carried out beyond the initially planned levels and involve decompression, fusion including insertion of hardware at levels other than the original intended area of surgical interest change some portions of the procedure in order to ensure the best possible outcomes. With spine surgery and spinal fusion, there are different off label uses of instrumentation (devices, implants and hardware) as well as biological substances (bone morphogenic proteins, demineralized bone matrix) as well as using extra bone from allograft sources (i.e. cadaver bone) or autograft (iliac crest bone, ribs, or the spine itself). The patient has been given information about these practices and their inherent risks and benefits. [facility] is an educational center that serves as a training facility for neurosurgical and orthopedic PRODUCTION CONTROL CLERK and Nursing students. Physician assistants are medically trained surgical providers who function in the outpatient, inpatient, and operating room setting under the direct supervision of the attending surgeon. [facility] has multiple operating rooms with single and overlapping rooms running daily. They currently function under the required guidelines as produced by the [facility] Finance Committee with regards to the overlapping rooms and will continue to comply with changes to this policy as they occur. The requirements include and are complied with as follows: (1) the critical portions of the overlapping rooms will not occur at the same time, (2) the attending javon palacios will be physically present during the critical portions of the procedure and immediately available during the entire case, and (3) a back-up attending is designated should the primary attending not be immediately available. The patient has had a chance to review all the listed information, has been given print outs detailing this information, and has had all his/her questions answered to their satisfaction. It was my pleasure to have seen and examined Mr. Michael. In our visit today we have had a chance to go over my understanding of our patient's current condition, the natural course history without intervention and various interventional options. Questions were invited and answered, and the patient wishes to proceed as outlined above. I have seen and examined the patient for 25 minutes and we have spent more than 50% of the time in repeat and detailed counseling about the patient's condition, its natural course history with out and as much as can be predicted with surgery and re-review of various surgical treatment options. In conclusion, Mr. Michael requested we proceed with the above suggested surgery and are willing to accept risks and limitations of the suggested surgery as nature of the disease process and our best attempts at treatment for the condition. Thank you again for allowing us to be part of your patient's care. Please don't hesitate to contact me if you have any further questions. Signed and authenticated by: Noman Carty [facility] [address] [place] [address] Past Medical History Past Medical History: GERD/Reflux, Hypertension, Musculoskeletal Disorder Additional Past Medical History / Comment(s): right hip pain & down leg History of Any Multi-Drug Resistant Organisms: None Reported Additional Past Surgical History / Comment(s): circumcision as adult. Pain procedures. Past Anesthesia/Blood Transfusion Reactions: No Reported Reaction Smoking Status: Current every day smoker - Past Family History Mother Family Medical History: Cancer Medications and Allergies Home Medications Medication Instructions Recorded Confirmed Type Omeprazole 20 mg PO QAM 03/09/18 07/12/22 History DULoxetine HCL 20 mg PO QAM 05/19/22 07/12/22 History Ergocalciferol (Vitamin D2) 1,250 mcg PO MILLAN 05/19/22 07/12/22 History [Drisdol (50,000 Iu)] ALPRAZolam [Xanax] 0.5 mg PO DAILY PRN 05/25/22 07/12/22 History HYDROcodone/APAP 5-325MG [[place] 1 tab PO Q4HR PRN 3 Days #18 tab 05/27/22 07/12/22 Rx 5-325] Metoprolol Tartrate [Lopressor] 50 mg PO BID #60 tab 05/27/22 07/12/22 Rx Valsartan [Diovan] 320 mg PO QAM 07/12/22 07/12/22 History amLODIPine [Norvasc] 10 mg PO QAM 07/12/22 07/12/22 History Allergies Allergy/AdvReac Type Severity Reaction Status Date / Time No Known Allergies Allergy Verified 07/12/22 14:39 Physical Examination Osteopathic Statement: *. No significant issues noted on an osteopathic structural exam other than those noted in the History and Physical/Consult.
[~2022-07-15 10:42] MED LIST changes: +ACETAMINOPHEN TAB 500 MG TAB PO PRN; +DEXAMETHASONE SOD PHOSPHATE 4 MG/ML 1 ML VIAL IV ONE; +GABAPENTIN 300 MG CAP PO PRN; -LIDOCAINE 1% (10MG/ML) FOR IV START INTRADERMA PRN; +ONDANSETRON 4 MG/2 ML VIAL IVP ONE; +ONDANSETRON 4 MG/2 ML VIAL IVP PRN; +TRANEXAMIC ACID IN NACL,ISO-OS 1,000 MG in SALINE 1 100ML.BAG IVPB PRN
[2022-07-15 11:43] LABS: Glucose,Whole Blood 109 mg/dL (70-110)
[2022-07-15] MEDS ORDERED: MIDAZOLAM 2 MG/2 ML VIAL IVP ONE (11:53)
[2022-07-15 12:06] LABS: INR 0.9 (<1.2); Prothrombin Time 10.2 sec (9.0-12.0)
[2022-07-15] MEDS ORDERED: NEOSTIGMINE 1 MG/ML 10 ML VIAL ONE (12:20)
[2022-07-15] MEDS ORDERED: HYDROmorphone (PF) 1 MG/ML ONE ×2 (12:20)
[2022-07-15] MEDS ORDERED: DEXAMETHASONE SOD PHOSPHATE 10 MG/ML 1 ML VIAL ONE (12:20)
[2022-07-15] MEDS ORDERED: GLYCOPYRROLATE 0.2 MG/ML 2 ML VIAL ONE (12:20)
[2022-07-15] MEDS ORDERED: PHENYLEPHRINE-0.9% NACL SYG 1,000 MCG/10 ML SYRINGE ONE (12:20)
[2022-07-15] MEDS ORDERED: ePHEDrine 50 MG/ML 1 ML VIAL ONE (12:20)
[2022-07-15] MEDS ORDERED: TRANEXAMIC ACID IN NACL,ISO-OS 1,000 MG/100 ML BAG ONE (12:20)
[2022-07-15] MEDS ORDERED: LIDOCAINE 2% INJ 20 MG/ML (2 ML VIAL) ONE (12:20)
[2022-07-15] MEDS ORDERED: SUCCINYLCHOLINE CHLORIDE 200 MG/10 ML VIAL IV ONE (12:20)
[2022-07-15] MEDS ORDERED: ROCURONIUM 10 MG/ML (5 ML VIAL) IV ONE (12:20)
[2022-07-15] MEDS ORDERED: PROPOFOL 10 MG/ML 20 ML VIAL IV ONE (12:20)
[2022-07-15] MEDS ORDERED: MIDAZOLAM 2 MG/2 ML VIAL ONE (12:20)
[2022-07-15] MEDS ORDERED: fentaNYL (PF) 50 MCG/ML 2 ML AMP ONE (12:20)
[2022-07-15] MEDS ORDERED: BUPIVACAINE (PF) 0.25% 30 ML VIAL SQ ONE (13:07)
[2022-07-15] MEDS ORDERED: GELATIN SPONGE,ABSORB (LARGE) 1 EACH SPONGE TOPICAL ONE (13:07)
[2022-07-15] MEDS ORDERED: THROMBIN (BOVINE) 5,000 UNIT VIAL TOPICAL ONE (13:07)
[2022-07-15] MEDS ORDERED: VANCOMYCIN 1,000 MG VIAL MISCELLANE ONE (14:05)
[2022-07-15] MEDS: HYDROmorphone 0.5 MG/0.5 ML SYRINGE IVP PRN ×3 (14:35→15:22)
[2022-07-15 14:39] VITALS: TEMP 97
[2022-07-15] MEDS ORDERED: LACTATED RINGERS 1,000 ML IV ONE ×2 (14:45)
--- NOTE | 2022-07-15 15:40 | FL ---
EXAMINATION TYPE: FL guidance operating room DATE OF EXAM: 07/15/2022 HISTORY: Fluoroscopy time 1 minute and 33 seconds of fluoroscopy provided. IMPRESSION: 1. Fluoroscopy time.
--- NOTE | 2022-07-15 15:43 | XR ---
EXAMINATION TYPE: XR sacrum coccyx DATE OF EXAM: 07/15/2022 COMPARISON: NONE HISTORY: Intraoperative image TECHNIQUE: Limited intraoperative resolution images submitted FINDINGS: Postsurgical changes are seen. Exam limited IMPRESSION: Intraoperative
[2022-07-15 16:20] VITALS: RESP 16
[2022-07-15 16:52] VITALS: BP 130/82; PULSE 71
--- NOTE | 2022-07-16 08:16 | P.OP ---
Date of Procedure: 07/15/22 Preoperative Diagnosis: 1. Right degenerative sacroiliitis Postoperative Diagnosis: 1. Right degenerative sacroiliitis Procedure(s) Performed: 1. Right minimally invasive SI fusion using imaging [place] guidance (50928, [id number]) Implants: SI bone Torque screws x3 Anesthesia: GETA Surgeon: Noman Araiza Silverware Cleaner #1: lEsa Weiner Estimated Blood Loss (ml): 150 IV fluids (ml): 500 Urine output (ml): 0 Pathology: none sent Condition: stable Disposition: PACU Indications for Procedure: Mr. Michael is presenting for evaluation of bilateral sacroiliitis. It was my pleasure to have seen and examined Mr. Michael. In our visit today we have had a chance to go over subjective complaints, physical examination findings and treatments including the natural course history without intervention and various interventional options. The patients imaging demonstrates: Xray taken on 08/13/2020 of the lumbar spine and pelvis: Lumbar spine from today reveal: AP lateral flexion extension films reveal no fractures or dislocations no anterolisthesis or motion overall well-maintained alignment sagittal and coronal balance maintained. AP pelviscongruent pelvis congruent femoral mass tenderness no fracture dislocations no arthritic changes MRI scan from 05/25/2021 of Lumbar Spine: L1-L2: Normal disc appearance without desiccation. No herniation, protrusion or disc bulging. No canal stenosis is present. Foramina are patent bilaterally. L2-L3: Normal disc appearance without desiccation. No herniation, protrusion or disc bulging. No canal stenosis is present. Foramina are patent bilaterally. L2 hemangioma again seen. L3-L4: Mild disc desiccation noted in the minimal posterior disc bulge unchanged. No herniation or protrusion. No canal stenosis is present. Foramina are patent bilaterally. L4-L5: Mild disc desiccation noted in the minimal posterior disc bulge unchanged. No herniation or protrusion. No canal stenosis is present. Foramina are patent bilaterally. L5-S1: Normal disc appearance without desiccation. No herniation, protrusion or disc bulging. No canal stenosis is present. Foramina are patent bilat erally. Lumbar segments are intact. No paraspinal masses are identified. Conus medullaris has a normal appearance. IMPRESSION: 1. Stable mild degenerative disc disease and disc bulging at L3-4 and L4-5. MRI scan from 02/25/2022 of bilateral SI jointSpine: While these findings as outlined below are seens as degenerative by the radiologist, I would like a second opinion as the changes are in the sacrum and suspicious to me for lesion. FINDINGS: Sacroiliac joints show area of diminished T1 and T2 signal with surrounding increased T2 signal in the right iliac bone adjacent to the sacroiliac joint coronal image 8 and axial image 9 tiny area of increased T2 signal or edema on coronal STIR weighted images in the right iliac bone coronal images 8 and 9 and to lesser degree in the left iliac bone coronal image 7 is present. Sacroiliac joints appear symmetric. No obvious spurring is seen. Remainder of the pelvic structures show no concerning pelvic fluid. No abnormal bowel dilatation is seen. Remainder osseous structures are intact. IMPRESSION: Some mild changes related to sacroiliitis are felt to be present as detailed above MRI of the lumbar spine from 07/23/2020 reveals: no focal disc herniations no focal stenosis overall well-maintained alignment no fractures or dislocations On physical exam, Mr. Michael demonstrates severely restricted lumbar ROM with positive Forton's finger on the right side along with positive compression test on the right : lateral and anterior, positive hip thrust test on the right, positive Tyree's test on the right. I have explained to the patient that as their condition progresses it will cause further neurological deficits and eventual paralysis. Based on the patients imaging, physical exam, and the rapid progression and disabling nature of their symptoms, at this time I recommend surgery in the form or a: Right SI joint fusion (02427). I discussed the risk and benefits of this procedure at length with Mr. Michael. The patient [significant other] agreed to considered pursuing the procedure abovementioned. Prior to surgery, she should follow up with her PCP (Cardio, ID, IM etc) for clearance. Questions were invited and answered, and the patient wishes to proceed as outlined below. Currently, I am recommendin. Right Sacroiliac joint fusion (72949) 2.Follow up with PCP for surgical clearance 3.Review of surgical risks and benefits as well as an educational packet on the proposed surgical procedure Description of Procedure: The patient was seen and examined in the preoperative area. All preoperative protocols were followed. Informed consent was obtained risks and benefits of the procedure were discussed at length. Risks including bleeding infection damage to the surrounding tissue and risk of reoperation were discussed with the patient. Risk of anesthesia up to and including was a discussed with the patient. These are outlined in the risk review. They were willing to accept these risks and all of the risks of surgery. The patient was given a weight- based dose of antibiotics in the form of 2 g Ancef. The patient was seen and evaluated by the anesthesia team who deemed them fit for surgery. The site was marked, the patient was willing to proceed with the procedure. The patient was transferred to the operative suite by the Department of anesthesia. They were then drifted off to sleep by the department anesthesia and GETA was performed. The patient tolerated this well. Once confirmation of lines and ventilation the patient was transferred to a [prone Aime table very carefully]. All bony prominences including wrists, elbows, axilla, chest, hips, and thighs, and feet were padded very well. Special attention was paid to the genitalia and these were padded accordingly. SCDs were placed on bilateral lower extremities and were connected. Arms were well padded and placed [on arm boards up and out in the 90/90 position]. Once in position, again we confirmed good ventilation capabilities and that lines were running appropriately. The patient's lumbosacral spine was then exposed. 1010s were placed outlining the incision site. Standard alcohol was used to clean the incision site and allowed to dry. C-arm was used to biomark the patient and confirm level for incision which was marked with a skin marker. Operative briefing was performed with all teams and everyone in agreement to proceed. The patient was then prepped and draped in a normal sterile fashion. Timeout was then performed and all parties were in agreement with the procedure to be performed. A 3-D intraoperative C-arm spent was obtained for strength or image guidance then registered and confirmed to be accurate. At the intersection of the previously bio marked skin of the sacral mid body and alar lines a skin incision was made 2 cm dorsally to the alar line. Blunt dissection was taken down to the gluteal fascia which was palpated and bluntly dissected then bluntly dissected to the iliac wing. The navigated drill guide was then used to create a area relief pilot hole and the trajectory for the first screw which is the most cephalad screw into the S1 body on the right-hand side once this was created a pin was placed in its avoid and driven into position optimally using image guidance. Once confirmed in good position on inlet outlet and lateral views the pin was measured and a screw was selected. We then placed a drill guide with tissue protector over this pin and the drill was advanced which was guided by navigation to the desired depth. We then placed a screw over the wire. The screw had good purchase. We then used the parallel guide to place a second screw more anterior once in good position on lateral fluoroscopy image guidance was used to advance the wire into position once it was in good position we confirmed it on Judet views. We then followed the same sequence of drilling with image guidance to the desired depth and placement of the screw was screwed good purchase. For the final and most caudal screw we repeated this process and atraumatically placed a screw. Once the screws were placed we tested them with neuro monitoring and all tested above 30 mA. The wound was then thoroughly irrigated. Final imaging was taken showing good placement of hardware. The wound was then cleaned and closed with 0 Vicryl in the deep fascia 2-0 Vicryl superficial subcu and 3-0 Monocryl in the subcuticular. A glue and mesh tape was placed over the wound after was cleaned and then was dressed sterilely with a Band-Aid. The patient was transferred back to their hospital bed atraumatically. Patient was then awakened and extubated by the department of anesthesia having tolerated the procedure very well with no complications. They were transferred to the postoperative care unit in stable condition.
== END 2022-07-15 17:07 | disposition home or self-care (01) ==
LOC: OR 10:42
PROVIDERS: ATTEND Orthopaedic Surgery
DX: M46.1 Sacroiliitis, not elsewhere classified (principal); F17.200 Nicotine dependence, unspecified, uncomplicated; I10 Essential (primary) hypertension; K21.9 Gastro-esophageal reflux disease without esophagitis
CPT/HCPCS: 86900; 86901; 85610; 86850; 72220; 27279; C1713; C1762; J2250; J3370; J0330; J1100 ×2; J2710; J0690; J2405; J3010; J1170 ×2; J2370; J2704; J2001

== ENCOUNTER → 2023-01-26 | Outpatient (CLI) | payer MEDICAID ==
--- NOTE | 2023-01-27 09:38 | MR ---
EXAMINATION TYPE: MR cspine/tspine wo con DATE OF EXAM: 01/26/2023 COMPARISON: CTA chest May 25, 2022 HISTORY: Neck and mid back pain/burning, victorina hip pain, RLE radiculopathy. TECHNIQUE: Multiplanar, multisequence imaging of cervical and thoracic spine are performed without co ntrast FINDINGS: Cervical spine: FINDINGS: Sagittal images of the cervical spine show the craniocervical junction to appear within nor mal limits. The cervical and upper thoracic spinal cord is normal in course, caliber, and signal. V ertebral alignment is straightened. The vertebral body and intravertebral disk heights are normal. The bone marrow signal intensity is within normal limits. Axial images show there is no significant focal disk disease, spinal canal stenosis, neural foraminal narrowing, or spinal cord compromise at any cervical level. IMPRESSION: Negative MRI of the cervical spine, no significant abnormality is seen to account for teo power's clinical symptoms. Thoracic spine: Spinal cord shows normal course, caliber, and signal as it courses the thoracic spine. Vertebral bod y heights and alignment are stable and satisfactory. Disc space heights are maintained. No large post erior disc herniations on sagittal images. Bone marrow signal intensity is preserved. Review of the axial images shows no significant spinal canal stenosis, disc herniation, or neural for aminal narrowing at any thoracic level. The visualized upper abdomen and thorax show no suspicious a bnormality. IMPRESSION: No significant abnormality is seen to account for patient's symptoms.
== END | disposition home or self-care (01) ==
LOC: RADMRIMAIN 06:04
PROVIDERS: ATTEND Orthopaedic Surgery
DX: M54.2 Cervicalgia (principal); M54.6 Pain in thoracic spine
CPT/HCPCS: 72141; 72146

== ENCOUNTER 2024-05-18 08:56 | Day surgery (SDC) | payer MEDICAID ==
[2024-05-18] MEDS ORDERED: ROPIVACAINE 5MG/ML 20ML VIAL ONE (10:30)
[2024-05-18] MEDS ORDERED: IOPAMIDOL M200 10 ML VIAL ONE (10:30)
[2024-05-18] MEDS ORDERED: methylPREDNISolone ACETATE 40 MG/ML 1 ML VIAL ONE (10:30)
--- NOTE | 2024-07-05 10:35 | FL ---
EXAMINATION TYPE: FL guided pain mgmt statistic DATE OF EXAM: 05/31/2024 2:29 PM COMPARISON: Pre Operative Images if available both CT/MRI or plain film CLINICAL INDICATION: Male, 53 years old with history of LEFT SI JOINT INJ; TECHNIQUE: FL guided pain mgmt statistic, multiple fluoroscopic images provided for procedure. Total fluoroscopy time: 14.8 seconds Total submitted images to PACS: 2 DAP: 0.80100 mGym2 Gycm2 uGym2 cGycm2 or equivalent. FINDINGS: Fluoroscopic images during injection for pain management demonstrate multilevel degeneration changes throughout the spine. No evidence for fracture. No acute process identified. IMPRESSION: 1. No evidence for intraoperative complication. 2. Please see the operative/procedural note for further details. [facility], , 07/05/2024 10:33 AM
== END 2024-05-18 11:05 ==
LOC: ORPAIN 08:56
PROVIDERS: ATTEND Specialist
DX: M46.1 Sacroiliitis, not elsewhere classified (principal); M47.816 Spondylosis without myelopathy or radiculopathy, lumbar region
CPT/HCPCS: 27096

== ENCOUNTER 2024-09-20 08:39 | Inpatient (IN) | payer MEDICAID ==
[2024-09-20] MEDS: SODIUM CHLORIDE 0.9% 1,000 ML IV STA (09:18)
[2024-09-20] MEDS: HYDROmorphone 0.5 MG/0.5 ML SYRINGE IVP STA ×2 (09:18→09:57)
[2024-09-20] MEDS: ONDANSETRON 4 MG/2 ML VIAL IVP STA (09:18)
[2024-09-20 09:24] LABS: Basophils # (A) 0.1 k/uL (0-0.2); Basophils % (A) 1 %; Eosinophils % (A) 0 %; HCT 47.4 % (39.0-53.0); HGB 16.1 gm/dL (13.0-17.5); Lymphocytes # (A) 1.5 k/uL (1.0-4.8); Lymphocytes % (A) 25 %; MCH 31.3 pg (25.0-35.0); MCHC 33.9 g/dL (31.0-37.0); MCV 92.3 fL (80.0-100.0); Monocytes # (A) 0.5 k/uL (0-1.0); Monocytes % (A) 7 %; Neutrophils # (A) 3.9 k/uL (1.3-7.7); Neutrophils % (A) 63 %; Platelet Count 121 k/uL (150-450); RBC 5.13 m/uL (4.30-5.90); RDW 13.5 % (11.5-15.5); WBC 6.1 k/uL (3.8-10.6)
--- NOTE | 2024-09-20 09:36 | ED ---
General Adult HPI - General Chief complaint: Nausea/Vomiting/Diarrhea Stated complaint: N/V/D Time Seen by Provider: 09/20/24 08:49 Source: patient, RN notes reviewed, old records reviewed Mode of arrival: ambulatory Limitations: no limitations - History of Present Illness Initial comments: 54-year-old male presenting for evaluation of nausea vomiting diarrhea which has been present for the past 3 or 4 days. Patient did recently travel. He has had chills and generalized abdominal cramping. He has history of chronic kidney disease and hypertension. - Related Data Home Medications Medication Instructions Recorded Confirmed Omeprazole 20 mg PO DAILY 03/09/18 09/20/24 ALPRAZolam [Xanax] 0.5 mg PO DAILY PRN 05/25/22 09/20/24 Valsartan [Diovan] 160 mg PO BID 07/12/22 09/20/24 amLODIPine [Norvasc] 10 mg PO DAILY 07/12/22 09/20/24 Loratadine [Claritin] 10 mg PO DAILY 09/20/24 09/20/24 Rosuvastatin Calcium [Crestor] 5 mg PO BID 09/20/24 09/20/24 ondansetron HCL [Zofran] 8 mg PO DAILY PRN 09/20/24 09/20/24 Previous Rx's Medication Instructions Recorded Metoprolol Tartrate [Lopressor] 50 mg PO BID #60 tab 05/27/22 Allergies Allergy/AdvReac Type Severity Reaction Status Date / Time No Known Allergies Allergy Verified 09/20/24 10:14 Review of Systems ROS Statement: Those systems with pertinent positive or pertinent negative responses have been documented in the HPI. ROS Other: All systems not noted in ROS Statement are negative. 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 surgically, refractory hypertension, chronic stage III kidney disease History of Any Multi-Drug Resistant Organisms: None Reported Additional Past Surgical History / Comment(s): circumcision as adult, pain pr ocedures Past Anesthesia/Blood Transfusion Reactions: No Reported Reaction Past Psychological History: Anxiety, Depression Smoking Status: Current every day smoker - Past Family History Mother Family Medical History: Cancer General Exam Limitations: no limitations General appearance: alert, in no apparent distress Head exam: Present: atraumatic, normocephalic Eye exam: Present: normal appearance, PERRL ENT exam: Present: mucous membranes dry Neck exam: Present: normal inspection. Absent: tenderness, meningismus Respiratory exam: Present: normal lung sounds bilaterally. Absent: respiratory distress Cardiovascular Exam: Present: normal rhythm, tachycardia GI/Abdominal exam: Present: soft, tenderness (Mild generalized). Absent: distended Extremities exam: Present: normal inspection, normal capillary refill Neurological exam: Present: alert, oriented X3, CN II-XII intact. Absent: motor sensory deficit Psychiatric exam: Present: normal affect, normal mood Skin exam: Present: warm, dry, intact. Absent: cyanosis, diaphoretic Course Vital Signs 09/20/24 09/20/24 09/20/24 08:42 09:20 09:42 Temperature 97.4 F L Pulse Rate 110 H 110 H 100 Respiratory 16 26 H 20 Rate Blood Pressure 144/106 110/84 113/68 O2 Sat by Pulse 95 99 98 Oximetry Medical Decision Making - Medical Decision Making Was pt. sent in by a medical professional or institution (Dr. PA, CLASS C DRIVER, urgent care, hospital, or [facility]...) When possible be specific @ -No Did you speak to anyone other than the patient for history (EMS, parent, family, police, friend...)? What history was obtained from this source @ -No Did you review nursing and triage notes (agree or disagree)? Why? @ -I reviewed and agree with nursing and triage notes Were old charts reviewed (outside hosp., previous admission, EMS record, old EKG, old radiological studies, urgent care reports/EKG's, [facility] records)? Report findings @ -No old charts were reviewed Differential Abdominal Pain Men: Appendicitis, cholecystitis, diverticulosis, ischemic bowel, pancreatitis, hepatitis, UTI, gastroenteritis, AAA, incarcerated hernia, bowel obstruction, constipation, inflammatory bowel, hepatitis, peptic ulcer disease, splenic infarction, perforated viscus, testicular torsion, this is not meant to be an all-inclusive list EKG interpreted by me (3pts min.). @ -Sinus tachycardia rate of 105, TX interval 144, QRS duration 109, QTc 412 X-rays interpreted by me (1pt min.). @ -None done CT interpreted by me (1pt min.). @CT abdomen pelvis negative for acute findings U/S interpreted by me (1pt. min.). @ -None done What testing was considered but not performed or refused? (CT, X-rays, U/S, labs)? Why? @ -None What meds were considered but not given or refused? Why? @ -None Did you discuss the management of the patient with other professionals (professionals i.e. , PA, CLASS C DRIVER, lab, RT, psych nurse, manager social media, shipyard painter helper, teacher, u.s. revenue officer, medical case manager)? Give summary @ -No Was smoking cessation discussed for >3mins.? @ -No Was critical care preformed (if so, how long)? @ -No Were there social determinants of health that impacted care today? How? (Homelessness, low income, unemployed, alcoholism, drug addiction, trans portation, low edu. Level, literacy, decrease access to med. care, residential, rehab)? @ -No Was there de-escalation of care discussed even if they declined (Discuss DNR or withdrawal of care, Hospice)? DNR status @ -No What co-morbidities impacted this encounter? (DM, HTN, Smoking, COPD, CAD, Cancer, CVA, ARF, Chemo, Hep., AIDS, mental health diagnosis, sleep apnea, morbid obesity)? @ -CKD, hypertension Was patient admitted / discharged? Hospital course, mention meds given and route, prescriptions, significant lab abnormalities, going to OR and other pertinent info. @ -54-year-old male with nausea vomiting diarrhea over the past 3 to 4 days. Patient appears significantly dehydrated. He has generalized abdominal tenderness. Mildly tachycardic upon arrival. Workup is initiated including C BC, CMP, urinalysis. As well as CT imaging of the abdomen pelvis. Patient has a normal CBC. CMP shows elevated BUN and creatinine with a creatinine of 8 from a baseline of 1.4. Normal potassium. He is mildly acidotic with a CO2 of 19. He is an uric on Russo catheter placement. Given 2 L normal saline followed by 150 cc normal saline per hour recommended by Dr. Eren bradley for nephrology . Case discussed with Dr. Avila who will admit. Lactic acid is 5. I believe this is from hypovolemia and dehydration and not sepsis. Undiagnosed new problem with uncertain prognosis? @ -No Drug Therapy requiring intensive monitoring for toxicity (Heparin, Nitro, Insulin, Cardizem)? @ -No Were any procedures done? @ -No Diagnosis/symptom? @ -Acute renal failure, hypovolemia Acute, or Chronic, or Acute on Chronic? @ -[Acute Uncomplicated (without systemic symptoms) or Complicated (systemic symptoms)? @ -Default Side effects of treatment? @ -No Exacerbation, Progression, or Severe Exacerbation? @ -No Poses a threat to life or bodily function? How? (Chest pain, [place], [place], pneumonia, PE, COPD, DKA, ARF, appy, cholecystitis, CVA, Diverticulitis, Homicidal, Suicidal, threat to staff... and all critical care pts) @Yes, renal failure - Lab Data Result diagrams: 09/20/24 09:09/20/24 09:01 Lab Results 09/20/24 09/20/24 09/20/24 Range/Units 09:01 09:01 09:01 WBC 6.1 (3.8-10.6) k/uL RBC 5.13 (4.30-5.90) m/uL Hgb 16.1 (13.0-17.5) gm/dL Hct 47.4 (39.0-53.0) % MCV 92.3 (80.0-100.0) fL MCH 31.3 (25.0-35.0) pg MCHC 33.9 (31.0-37.0) g/dL RDW 13.5 (11.5-15.5) % Plt Count 121 L (150-450) k/uL MPV 10.0 Neutrophils % 63 % Lymphocytes % 25 % Monocytes % 7 % Eosinophils % 0 % Basophils % 1 % Neutrophils # 3.9 (1.3-7.7) k/uL Lymphocytes # 1.5 (1.0-4.8) k/uL Monocytes # 0.5 (0-1.0) k/uL Eosinophils # 0.0 (0-0.7) k/uL Basophils # 0.1 (0-0.2) k/uL Manual Slide Review Performed PT 12.1 (10.0-12.5) sec INR 1.1 (<1.2) APTT 24.5 (22.0-30.0) sec VBG pH (7.31-7.41) VBG pCO2 (37-51) mmHg VBG HCO3 (24-28) mmol/L Sodium 132 L (137-145) mmol/L Potassium 3.6 (3.5-5.1) mmol/L Chloride 87 L (98-107) mmol/L Carbon Dioxide 19 L (22-30) mmol/L Anion Gap 26 mmol/L BUN 54 H (9-20) mg/dL Creatinine 8.15 H* (0.66-1.25) mg/dL Est GFR (CKD-EPI)AfAm 8 (>60 ml/min/1.73 sqM) Est GFR (CKD-EPI)NonAf 7 (>60 ml/min/1.73 sqM) Glucose 157 H (74-99) mg/dL Plasma Lactic Acid Jose (0.7-2.0) mmol/L Calcium 9.6 (8.4-10.2) mg/dL Total Bilirubin 0.8 (0.2-1.3) mg/dL AST 48 (17-59) U/L ALT 30 (4-49) U/L Alkaline Phosphatase 81 (38-126) U/L Total Protein 9.2 H (6.3-8.2) g/dL Albumin 5.4 H (3.5-5.0) g/dL Amylase 77 (30-110) U/L Lipase 238 (23-300) U/L Influenza Type A (PCR) (Not Detectd) Influenza Type B (PCR) (Not Detectd) RSV (PCR) (Not Detectd) SARS-CoV-2 (PCR) (Not Detectd) 09/20/24 09/20/24 09/20/24 Range/Units 09:01 09:06 09:49 WBC (3.8-10.6) k/uL RBC (4.30-5.90) m/uL Hgb (13.0-17.5) gm/dL Hct (39.0-53.0) % MCV (80.0-100.0) fL MCH (25.0-35.0) pg MCHC (31.0-37.0) g/dL RDW (11.5-15.5) % Plt Count (150-450) k/uL MPV Neutrophils % % Lymphocytes % % Monocytes % % Eosinophils % % Basophils % % Neutrophils # (1.3-7.7) k/uL Lymphocytes # (1.0-4.8) k/uL Monocytes # (0-1.0) k/uL Eosinophils # (0-0.7) k/uL Basophils # (0-0.2) k/uL Manual Slide Review PT (10.0-12.5) sec INR (<1.2) APTT (22.0-30.0) sec VBG pH 7.38 (7.31-7.41) VBG pCO2 38 (37-51) mmHg VBG HCO3 22 L (24-28) mmol/L Sodium (137-145) mmol/L Potassium (3.5-5.1) mmol/L Chloride (98-107) mmol/L Carbon Dioxide (22-30) mmol/L Anion Gap mmol/L BUN (9-20) mg/dL Creatinine (0.66-1.25) mg/dL Est GFR (CKD-EPI)AfAm (>60 ml/min/1.73 sqM) Est GFR (CKD-EPI)NonAf (>60 ml/min/1.73 sqM) Glucose (74-99) mg/dL Plasma Lactic Acid Jose 5.0 H* (0.7-2.0) mmol/L Calcium (8.4-10.2) mg/dL Total Bilirubin (0.2-1.3) mg/dL AST (17-59) U/L ALT (4-49) U/L Alkaline Phosphatase (38-126) U/L Total Protein (6.3-8.2) g/dL Albumin (3.5-5.0) g/dL Amylase (30-110) U/L Lipase (23-300) U/L Influenza Type A (PCR) Not Detected (Not Detectd) Influenza Type B (PCR) Not Detected (Not Detectd) RSV (PCR) Not Detected (Not Detectd) SARS-CoV-2 (PCR) Not Detected (Not Detectd) Disposition Clinical Impression: Acute renal failure, Dehydration Disposition: ADMITTED IP TO THIS HOSP Condition: Stable Is patient prescribed a controlled substance at d/c from ED?: No Referrals: Kelly Roblero MD [Primary Care Provider] - 1-2 days Time of Disposition: 11:34
[2024-09-20 09:41] LABS: ALT 30 U/L (4-49); AST 48 U/L (17-59); African American GFR (CKD) 8 (>60 ml/min/1.73 sqM); Albumin 5.4 g/dL (3.5-5.0); Alkaline Phosphatase 81 U/L (38-126); Amylase 77 U/L (30-110); Anion Gap 26 mmol/L; Blood Urea Nitrogen 54 mg/dL (9-20); Calcium 9.6 mg/dL (8.4-10.2); Carbon Dioxide 19 mmol/L (22-30); Chloride 87 mmol/L (98-107); Glucose 157 mg/dL (74-99); Lipase 238 U/L (23-300); Non-African American GFR(CKD) 7 (>60 ml/min/1.73 sqM); Potassium 3.6 mmol/L (3.5-5.1); Sodium 132 mmol/L (137-145); Total Bilirubin 0.8 mg/dL (0.2-1.3); Total Protein 9.2 g/dL (6.3-8.2)
[2024-09-20 09:45] LABS: INR 1.1 (<1.2); Partial Thromboplastin Time 24.5 sec (22.0-30.0); Prothrombin Time 12.1 sec (10.0-12.5)
[2024-09-20] MEDS: SODIUM CHLORIDE 0.9% 1,000 ML IV ONE (09:57)
[2024-09-20 10:06] LABS: VBG PH 7.38 (7.31-7.41)
--- NOTE | 2024-09-20 10:39 | CT ---
EXAMINATION TYPE: CT abdomen pelvis wo con DATE OF EXAM: 09/20/2024 COMPARISON: None CLINICAL INDICATION: Male, 54 years old with history of ab pain/ARF; PHH, pain, elevated WBCs TECHNIQUE: CT scan of the abdomen and pelvis is performed without oral or IV contrast. CT DLP: 624.[address] CTDI: mGy Automated exposure control for dose reduction was used. FINDINGS: Within the limitations of a non-contrast study, the following observations are made. The lungs are clear. Gallbladder is normal and there is no gallstone, wall thickening, pericholecystic fluid or distention . There is no biliary ductal dilatation. There is no organomegaly of the liver, pancreas, spleen or adrenal glands. There are no renal calcifications or hydronephrosis. The caliber of the abdominal aorta is normal and there is no retroperitoneal adenopathy or hemorrhage . The bowel loops are normal in caliber is no evidence of obstruction. No inflammatory changes are iden tified in the mesentery and there is no free intraperitoneal air or fluid. There is no pelvic mass, free fluid, abscess or adenopathy. There is mild diverticulosis of the colon without CT evidence of diverticulitis. The osseous structures and soft tissues are unremarkable. IMPRESSION: No significant abnormality seen. [facility], , 09/20/2024 10:37 AM
[2024-09-20] MEDS ORDERED: NALOXONE 0.4 MG/ML 1 ML VIAL IV PRN (11:30)
[2024-09-20] MEDS: SODIUM CHLORIDE 0.9% 1,000 ML IV SCH (11:38)
[2024-09-20 11:50] LABS: Appearance,Urine Turbid (Clear); Bacteria,Urine Occasional /hpf; Bilirubin,Urine 1+ (Negative); Blood,Urine Small (Negative); Color,Urine Light Red; Glucose,Urine (UA) Trace (Negative); Hyaline Casts,Urine 15 /lpf (0-2); Ketones,Urine Negative (Negative); Leukocyte Esterase,Urine Negative (Negative); Mucus,Urine Many /hpf; Nitrite,Urine Negative (Negative); PH, Urine 5.5 (5.0-8.0); Protein,Urine 2+ (Negative); RBC,Urine 9 /hpf (0-5); Specific Gravity,Urine 1.032 (1.001-1.035); Squamous Epithelial Cell,Urine 2 /hpf (0-4); WBC,Urine 24 /hpf (0-5)
--- NOTE | 2024-09-20 12:18 | P.NPCON ---
History of Present Illness - Reason for Consult acute renal failure, chronic renal failure - History of Present Illness Reason for consultation: Acute kidney injury on chronic kidney disease History of present illness: Patient is a 54-year-old male seen in renal consultation for acute kidney injury on chronic kidney disease. Patient was seen and examined in the emergency room. Patient has chronic kidney disease stage IIIa with baseline creatinine near 1.4. Etiology is nephrosclerosis and chronic PPI use. Patient came to the hospital due to upset stomach. Patient states Tuesday night he developed chills and vomited all night. He had persistent vomiting the next 3 days along with diarrhea and came to the hospital. He admits to taking mostly Tylenol for pain but also admits to taking Motrin about twice. Patient states he has been voiding but output has been less than usual. Denies gross hematuria. He currently has a Russo catheter. Denies history of diabetes. Denies history of coronary artery disease. Denies chest pain or shortness of breath. Blood pressure stable. He did receive 2 L of IV fluids and is now maintained on normal saline at 150 cc an hour. No hydronephrosis noted on CAT scan. No acute abnormalities noted. Vital signs are stable. General: No acute distress. HEENT: Head exam is unremarkable. LUNGS: No audible rhonchi or wheezes. HEART: Rate and Rhythm are regular. ABDOMEN: Generalized tenderness present. EXTREMITITES: No edema. 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 surgically, refractory hypertension, chronic stage III kidney disease History of Any Multi-Drug Resistant Organisms: None Reported Additional Past Surgical History / Comment(s): circumcision as adult, pain procedures Past Anesthesia/Blood Transfusion Reactions: No Reported Reaction Past Psychological History: Anxiety, Depression Smoking Status: Current every day smoker - Past Family History Mother Family Medical History: Cancer Medications and Allergies Home Medications Medication Instructions Recorded Confirmed Type Omeprazole 20 mg PO DAILY 03/09/18 09/20/24 History ALPRAZolam [Xanax] 0.5 mg PO DAILY PRN 05/25/22 09/20/24 History Metoprolol Tartrate [Lopressor] 50 mg PO BID #60 tab 05/27/22 09/20/24 Rx Valsartan [Diovan] 160 mg PO BID 07/12/22 09/20/24 History amLODIPine [Norvasc] 10 mg PO DAILY 07/12/22 09/20/24 History Loratadine [Claritin] 10 mg PO DAILY 09/20/24 09/20/24 History Rosuvastatin Calcium [Crestor] 5 mg PO BID 09/20/24 09/20/24 History ondansetron HCL [Zofran] 8 mg PO DAILY PRN 09/20/24 09/20/24 History Allergies Allergy/AdvReac Type Severity Reaction Status Date / Time No Known Allergies Allergy Verified 09/20/24 10:14 Physical Exam Vitals: Vital Signs Temp Pulse Resp BP Pulse Ox 09/20/24 11:26 98.2 F 97 18 129/62 98 09/20/24 09:42 100 20 113/68 98 09/20/24 09:20 110 H 26 H 110/84 99 09/20/24 08:42 97.4 F L 110 H 16 144/106 95 Intake and Output 09/19/24 09/20/24 09/20/24 22:59 06:59 14:59 Output Total 10 Balance -10 Output: Urine 10 Uretheral (Russo) 10 Other: Weight 95.254 kg Results - Lab Results Most recent lab results Calcium 9.6 mg/dL (8.4-10.2) 09/20/24 09:01 09/20/24 09:01 09/20/24 09:01 Assessment and Plan Plan: Assessment: 1. Acute kidney injury secondary to ATN secondary to severe hypovolemia. Further worsen with the use of ARB. Creatinine 8.15 on admission. No hydronephrosis noted on CAT scan. 2. Nausea vomiting and diarrhea. Possibly gastroenteritis. Tested negative for influenza, RSV and COVID-19. 3. Metabolic acidosis secondary to acute kidney injury and lactic acidosis. 4. Hypertension with chronic kidney disease. 5. Hypovolemic hyponatremia. Plan: Start normal saline at 150 cc an hour. Maintain Russo catheter. Strict I's and O's. Avoid nephrotoxins. Continue to hold antihypertensives. Continue to monitor renal function and urine output. Continue to assess daily for need for renal replacement therapy. Discussed potential need for renal placement therapy in the next 1 to 2 days if no improvement in renal function and urine output. Thank you for the consultation. I will continue to follow the patient with you during his hospital stay.
--- NOTE | 2024-09-20 14:31 | P.HPIM ---
History of Present Illness H&P Date: 09/20/24 54 year old M with PMH of HTN, CKD stage II, HLD, anxiety presents to the ED. He reports nausea, vomiting and diarrhea that has been ongoing for the past 3 days. He reports returning from [place] last Tuesday, his nephew was sick with similar symptoms. He reports chills that started on Tuesday. Since yesterday, he reports chest pain, left sided, tight in nature sometimes radiating in between the scapu la. 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 His symptoms have progressively worsened which prompted him to come to the ED. In the ED he underwent extensive evaluation. BP 144/106, HR 110, T 97.4F, RR 16, 95% on RA. CBC, Coag panel, CMP significant for Plt 121, Na 132, Cl 87, bicarb 19, BUN 54, Cr 8.15, glu 157, alb 5.4. Lactic acid 5.0. UA 2+ protein, trace glucose, small blood, 1+ bilirubin, 9 RBC, 24 WBC, 15 hyaline casts, occasional bacteria, many mucus. COVID, RSV, Flu neg. EKG sinus tachycardia with no ST elevation. CT AP negative for acute pathology. Patient is admitted for further workup and management. General: non toxic, mild distress, appears at stated age Derm: warm, dry Head: atraumatic, normocephalic, symmetric Eyes: EOMI, no lid lag, anicteric sclera Mouth: no lip lesion, mucus membranes moist Cardiovascular: S1S2 reg, no murmur, L chest wall TTP Lungs: CTA bilateral, no rhonchi, no rales , no accessory muscle use Abdominal: soft, tenderness to palpation in all 4 quadrants without rebound, no guarding, no appreciable organomegaly, + Russo Ext: no gross muscle atrophy, no edema, no contractures Neuro: no focal neuro deficits Psych: Alert, oriented, appropriate affect Based on my assessment of this patient, this patient meets a high complexity level of care. SHITAL on CKD stage II: Likely due to hypovolemia (vomiting, diarrhea, poor oral intake). CT AP unremarkable. Hold Valsartan, Claritin, Omeprazole. Start NS at 150 cc/hr. Renal diet. Nephrology consult. Lactic acidosis likely due to severe dehydration Hyponatremia likely due to severe dehydration Likely viral gastroenteritis: Rule out C. diff. Chest pain: Appears to be MSK. Obtain second EKG. Trend 2 Trop. Telemetry monitoring. CODE STATUS: FULL CODE. DVT Prophylaxis: Heparin SQ GI Prophylaxis: Designated medical POA if patient is not able to make medical decisions for themselves: Lindy I have reviewed the following risk and insurance consultant notes: ED note. I have reviewed the results of the following tests: As above. I have ordered the following tests: As above. I have discussed the care of this patient with the following independent historian: Lindy. I have independently interpreted the following test below: EKG. I have discussed the management of this patient with the following physician: 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 surgically, refractory hypertension, chronic stage III kidney disease History of Any Multi-Drug Resistant Organisms: None Reported Additional Past Surgical History / Comment(s): circumcision as adult, pain procedures Past Anesthesia/Blood Transfusion Reactions: No Reported Reaction Past Psychological History: Anxiety, Depression Smoking Status: Current every day smoker - Past Family History Mother Family Medical History: Cancer Medications and Allergies Home Medications Medication Instructions Recorded Confirmed Type Omeprazole 20 mg PO DAILY 03/09/18 09/20/24 History ALPRAZolam [Xanax] 0.5 mg PO DAILY PRN 05/25/22 09/20/24 History Metoprolol Tartrate [Lopressor] 50 mg PO BID #60 tab 05/27/22 09/20/24 Rx Valsartan [Diovan] 160 mg PO BID 07/12/22 09/20/24 History amLODIPine [Norvasc] 10 mg PO DAILY 07/12/22 09/20/24 History Loratadine [Claritin] 10 mg PO DAILY 09/20/24 09/20/24 History Rosuvastatin Calcium [Crestor] 5 mg PO BID 09/20/24 09/20/24 History ondansetron HCL [Zofran] 8 mg PO DAILY PRN 09/20/24 09/20/24 History Allergies Allergy/AdvReac Type Severity Reaction Status Date / Time No Known Allergies Allergy Verified 09/20/24 10:14 Physical Exam Vitals: Vital Signs Temp Pulse Resp BP Pulse Ox 09/20/24 11:26 98.2 F 97 18 129/62 98 09/20/24 09:42 100 20 113/68 98 09/20/24 09:20 110 H 26 H 110/84 99 09/20/24 08:42 97.4 F L 110 H 16 144/106 95 Intake and Output 09/19/24 09/20/24 09/20/24 22:59 06:59 14:59 Output Total 10 Balance -10 Output: Urine 10 Uretheral (Russo) 10 Other: Weight 95.254 kg Results CBC & Chem 7: 09/20/24 09:01 09/20/24 09:01 Labs: Abnormal Lab Results - Last 24 Hours (Table) 09/20/24 09/20/24 09/20/24 Range/Units 09:01 09:01 09:01 Plt Count 121 L (150-450) k/uL VBG HCO3 (24-28) mmol/L Sodium 132 L (137-145) mmol/L Chloride 87 L (98-107) mmol/L Carbon Dioxide 19 L (22-30) mmol/L BUN 54 H (9-20) mg/dL Creatinine 8.15 H* (0.66-1.25) mg/dL Glucose 157 H (74-99) mg/dL Plasma Lactic Acid Jose 5.0 H* (0.7-2.0) mmol/L Total Protein 9.2 H (6.3-8.2) g/dL Albumin 5.4 H (3.5-5.0) g/dL Urine Protein (Negative) Urine Glucose (UA) (Negative) Urine Blood (Negative) Urine Bilirubin (Negative) Urine RBC (0-5) /hpf Urine WBC (0-5) /hpf Urine Bacteria (None) /hpf Hyaline Casts (0-2) /lpf Urine Mucus (None) /hpf 09/20/24 09/20/24 Range/Units 09:49 11:35 Plt Count (150-450) k/uL VBG HCO3 22 L (24-28) mmol/L Sodium (137-145) mmol/L Chloride (98-107) mmol/L Carbon Dioxide (22-30) mmol/L BUN (9-20) mg/dL Creatinine (0.66-1.25) mg/dL Glucose (74-99) mg/dL Plasma Lactic Acid Jose (0.7-2.0) mmol/L Total Protein (6.3-8.2) g/dL Albumin (3.5-5.0) g/dL Urine Protein 2+ H (Negative) Urine Glucose (UA) Trace H (Negative) Urine Blood Small H (Negative) Urine Bilirubin 1+ H (Negative) Urine RBC 9 H (0-5) /hpf Urine WBC 24 H (0-5) /hpf Urine Bacteria Occasional H (None) /hpf Hyaline Casts 15 H (0-2) /lpf Urine Mucus Many H (None) /hpf
[2024-09-20] MEDS: ACETAMINOPHEN TAB 325 MG TAB PO PRN (17:47)
[2024-09-20] MEDS: ONDANSETRON 4 MG/2 ML VIAL IVP PRN (20:22)
[2024-09-20] MEDS: METOPROLOL TARTRATE 50 MG TAB PO SCH (20:22)
[2024-09-20] MEDS: HEPARIN SODIUM,PORCINE 5,000 UNIT/ML 1 ML VIAL SQ SCH (20:22)
[2024-09-20] MEDS: ALPRAZolam 0.5 MG TAB PO PRN (23:59)
[2024-09-21] MEDS: MORPHINE SULFATE 2 MG/ML SYRINGE IVP STA
[2024-09-21] MEDS: ATORVASTATIN 20 MG TAB PO SCH (08:34)
[2024-09-21] MEDS: MORPHINE SULFATE 4 MG/ML SYRINGE IVP PRN (09:50)
[2024-09-21] MEDS: amLODIPine 10 MG TAB PO SCH (10:42)
[2024-09-21 11:07] LABS: BUN/Creat Ratio 8.26 Ratio (12.00-20.00); Blood Urea Nitrogen 61.1 mg/dL (9.0-27.0); Calcium 8.3 mg/dL (8.7-10.3); Carbon Dioxide 19.6 mmol/L (21.6-31.8); Chloride 93 mmol/L (96-109); Glucose 121 mg/dL (70-110); Magnesium 1.7 mg/dL (1.5-2.4); Sodium 132 mmol/L (135-145)
[2024-09-21] MEDS: LOPERAMIDE 2 MG CAP PO STA (12:11)
--- NOTE | 2024-09-21 12:19 | P.PN ---
Subjective Patient is seen in follow-up for acute kidney injury on chronic kidney disease. Renal function better. Urine output also better. On IV fluids. Still having vomiting and diarrhea. Vital signs are stable. General: No acute distress. HEENT: Head exam is unremarkable. LUNGS: No audible rhonchi or wheezes. HEART: Rate and Rhythm are regular. ABDOMEN: Nontender. EXTREMITITES: No edema. Objective - Vital Signs Vital signs: Vital Signs Temp 98.5 F 09/21/24 07:19 Pulse 86 09/21/24 07:19 Resp 18 09/21/24 07:19 BP 118/71 09/21/24 07:19 Pulse Ox 99 09/21/24 07:19 FiO2 Intake & Output 09/20/24 09/21/24 09/21/24 18:59 06:59 18:59 Intake Total 1890 Output Total 10 400 Balance -10 1490 Weight 95.254 kg 95.254 kg Intake: Intake, IV Titration 1350 Amount Sodium Chloride 0.9% 1, 1350 000 ml @ 150 mls/hr IV . Q6H40M [facility] Rx#:[id number] Oral 540 Output: Urine 10 400 Uretheral (Russo) 10 Other: Voiding Method Indwelling Catheter # Bowel Movements 4 - Labs CBC & Chem 7: 09/20/24 09:01 09/21/24 05:45 Labs: Abnormal Lab Results - Last 24 Hours (Table) 09/21/24 Range/Units 05:45 Sodium 132 L (135-145) mmol/L Potassium 3.0 L (3.5-5.5) mmol/L Chloride 93 L (96-109) mmol/L Carbon Dioxide 19.6 L (21.6-31.8) mmol/L Anion Gap 19.40 H (4.00-12.00) mmol/L BUN 61.1 H (9.0-27.0) mg/dL Creatinine 7.4 H (0.6-1.5) mg/dL Est GFR (CKD-EPI) 6 L (>=60) BUN/Creatinine Ratio 8.26 L (12.00-20.00) Ratio Glucose 121 H (70-110) mg/dL Calcium 8.3 L (8.7-10.3) mg/dL Phosphorus 6.0 H (2.4-5.1) mg/dL Assessment and Plan Plan: Assessment: 1. Acute kidney injury secondary to ATN secondary to severe hypovolemia. Further worsened with the use of ARB. Creatinine 8.15 on admission and is 7.4 today. No hydronephrosis noted on CAT scan. 2. Nausea vomiting and diarrhea. Possibly gastroenteritis. Tested negative for influenza, RSV and COVID-19. C. difficile negative. 3. Metabolic acidosis secondary to acute kidney injury and lactic acidosis. Also on IV fluids. Stable. 4. Hypertension with chronic kidney disease. Blood pressure on the lower end. 5. Hypovolemic hyponatremia. Stable. 6. Hypokalemia from poor intake and GI losses. 7. Hyperphosphatemia secondary to acute kidney injury. Expect improvement with improving renal function and urine output. Plan: Maintain IV fluids. Replace potassium. Maintain Russo catheter. Strict I's and O's. Avoid nephrotoxins. Continue to hold antihypertensives. Continue to monitor renal function and urine output. Continue to assess daily for need for renal replacement therapy. Continue to assess daily for need for renal replacement therapy.
[2024-09-21] MEDS: POTASSIUM CHLORIDE ER 20 MEQ TAB.ER PO STA ×2 (12:55→16:24)
--- NOTE | 2024-09-21 13:14 | P.PN ---
Subjective Progress Note Date: 09/21/24 54 year old M with PMH of HTN, CKD stage II, HLD, anxiety presents to the ED. He reports nausea, vomiting and diarrhea that has been ongoing for the past 3 days. He reports returning from [place] last Tuesday, his nephew was sick with similar symptoms. He reports chills that started on Tuesday. Since yesterday, he reports chest pain, left sided, tight in nature sometimes radiating in between the scapula. 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 His symptoms have progressively worsened which prompted him to come to the ED. In the ED he underwent extensive evaluation. BP 144/106, HR 110, T 97.4F, RR 16, 95% on RA. CBC, Coag panel, CMP significant for Plt 121, Na 132, Cl 87, bicarb 19, BUN 54, Cr 8.15, glu 157, alb 5.4. Lactic acid 5.0. UA 2+ protein, trace glucose, small blood, 1+ bilirubin, 9 RBC, 24 WBC, 15 hyaline casts, occasional bacteria, many mucus. COVID, RSV, Flu neg. EKG sinus tachycardia with no ST elevation. CT AP negative for acute pathology. Patient is admitted for further workup and management. Started on NS at 150 cc/hr. Nephrology consulted and following. 09/21 Patient was seen and examined. He reports lower abdominal cramping. Some nausea but no vomiting. Still with multiple episodes of green diarrhea. BMP Na 132, K 3, Cl 93, bicarb 19.6, AG 19.4, BUN 61.1, Cr 7.4, glu 121, Ca 8.3. Phos 6. Mag 1.7. Trop 0.016, 0.014. Lactic acid 1.7. C. diff negative. Discussed with Dr. Jason, continue present management. General: non toxic, mild distress, appears at stated age Derm: warm, dry Head: atraumatic, normocephalic, symmetric Eyes: EOMI, no lid lag, anicteric sclera Mouth: no lip lesion, mucus membranes moist Cardiovascular: S1S2 reg, no murmur Lungs: CTA bilateral, no rhonchi, no rales , no accessory muscle use Abdominal: soft, tenderness to palpation in all 4 quadrants without rebound, no guarding, no appreciable organomegaly, + Russo Ext: no gross muscle atrophy, no edema, no contractures Neuro: no focal neuro deficits Psych: Alert, oriented, appropriate affect Based on my assessment of this patient, this patient meets a high complexity level of care. SHITAL on CKD stage II: Likely due to hypovolemia (vomiting, diarrhea, poor oral intake). CT AP unremarkable. Hold Valsartan, Claritin, Omeprazole. NS at 150 cc/hr. Renal diet. Nephrology on board. Hypokalemia: KCl 40 meq PO x 1. Anion gap metabolic acidosis likely related to SHITAL on CKD. Hyponatremia likely due to severe dehydration Likely viral gastroenteritis: C. diff negative. Zofran 4 mg IV Q6H PRN for N/V. + Reglan 5 mg IV Q6H PRN N/V. + Imodium 2 mg PO QID PRN. Chest pain: Appears to be MSK. ACS ruled out. Telemetry monitoring. Resolved: Lactic acidosis CODE STATUS: FULL CODE. DVT Prophylaxis: Heparin SQ GI Prophylaxis: Designated medical POA if patient is not able to make medical decisions for themselves: Lindy I have reviewed the following middleware consultant notes: Nephro I have reviewed the results of the following tests: BMP, Mag. Trop x 2. Lactic acid. C. diff. I have ordered the following tests: BMP and Mag in the AM. I have discussed the care of this patient with the following independent historian: RAJIV. I have independently interpreted the following test below: I have discussed the management of this patient with the following physician: Dr. Jason. Objective - Vital Signs Vital signs: Vital Signs Temp 98.5 F 09/21/24 07:19 Pulse 86 09/21/24 07:19 Resp 18 09/21/24 07:19 BP 118/71 09/21/24 07:19 Pulse Ox 99 09/21/24 07:19 FiO2 Intake & Output 09/20/24 09/21/24 09/21/24 18:59 06:59 18:59 Intake Total 1890 Output Total 10 400 Balance -10 1490 Weight 95.254 kg 95.254 kg Intake: Intake, IV Titration 1350 Amount Sodium Chloride 0.9% 1, 1350 000 ml @ 150 mls/hr IV . Q6H40M [facility] Rx#:[id number] Oral 540 Output: Urine 10 400 Uretheral (Russo) 10 Other: Voiding Method Indwelling Catheter Indwelling Catheter # Bowel Movements 4 - Labs CBC & Chem 7: 09/20/24 09:01 09/21/24 05:45 Labs: Abnormal Lab Results - Last 24 Hours (Table) 09/21/24 Range/Units 05:45 Sodium 132 L (135-145) mmol/L Potassium 3.0 L (3.5-5.5) mmol/L Chloride 93 L (96-109) mmol/L Carbon Dioxide 19.6 L (21.6-31.8) mmol/L Anion Gap 19.40 H (4.00-12.00) mmol/L BUN 61.1 H (9.0-27.0) mg/dL Creatinine 7.4 H (0.6-1.5) mg/dL Est GFR (CKD-EPI) 6 L (>=60) BUN/Creatinine Ratio 8.26 L (12.00-20.00) Ratio Glucose 121 H (70-110) mg/dL Calcium 8.3 L (8.7-10.3) mg/dL Phosphorus 6.0 H (2.4-5.1) mg/dL
[2024-09-21] MEDS: POTASSIUM CHLORIDE 20 MEQ in WATER FOR INJECTION 1 100ML.BAG IVPB SCH (13:57)
[2024-09-21] MEDS: METOCLOPRAMIDE 5 MG/ML 2 ML VIAL IVP PRN (16:24)
[2024-09-21] MEDS: HYDROmorphone 0.5 MG/0.5 ML SYRINGE IVP PRN (16:25)
[2024-09-21] MEDS: LOPERAMIDE 2 MG CAP PO PRN (20:19)
[2024-09-22 06:00] LABS: African American GFR (CKD) 22 (>60 ml/min/1.73 sqM); Anion Gap 9 mmol/L; Blood Urea Nitrogen 49 mg/dL (9-20); Calcium 8.6 mg/dL (8.4-10.2); Carbon Dioxide 20 mmol/L (22-30); Chloride 105 mmol/L (98-107); Glucose 106 mg/dL (74-99); Magnesium 1.9 mg/dL (1.6-2.3); Non-African American GFR(CKD) 19 (>60 ml/min/1.73 sqM); Potassium 3.2 mmol/L (3.5-5.1); Sodium 134 mmol/L (137-145)
[2024-09-22] MEDS: POTASSIUM CHLORIDE ER 20 MEQ TAB.ER PO STA ×2 (08:01→14:21)
[2024-09-22] MEDS: POTASSIUM CHLORIDE ER 20 MEQ TAB.ER PO ONE (08:02)
--- NOTE | 2024-09-22 09:55 | P.PN ---
Subjective Progress Note Date: 09/22/24 54 year old M with PMH of HTN, CKD stage II, HLD, anxiety presents to the ED. He reports nausea, vomiting and diarrhea that has been ongoing for the past 3 days. He reports returning from [place] last Tuesday, his nephew was sick with similar symptoms. He reports chills that started on Tuesday. Since yesterday, he reports chest pain, left sided, tight in nature sometimes radiating in between the scapula. 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 His symptoms have progressively worsened which prompted him to come to the ED. In the ED he underwent extensive evaluation. BP 144/106, HR 110, T 97.4F, RR 16, 95% on RA. CBC, Coag panel, CMP significant for Plt 121, Na 132, Cl 87, bicarb 19, BUN 54, Cr 8.15, glu 157, alb 5.4. Lactic acid 5.0. UA 2+ protein, trace glucose, small blood, 1+ bilirubin, 9 RBC, 24 WBC, 15 hyaline casts, occasional bacteria, many mucus. COVID, RSV, Flu neg. EKG sinus tachycardia with no ST elevation. CT AP negative for acute pathology. Patient is admitted for further workup and management. Started on NS at 150 cc/hr. Nephrology consulted and following. Renal function improved with IV hydration. Troponins trended and ACS ruled out. Electrolytes were replaced. Gastroenteritis symptomatically treated with Zofran, Reglan, and Imodium PRN. 09/21 Patient was seen and examined. He reports lower abdominal cramping. Some nausea but no vomiting. Still with multiple episodes of green diarrhea. BMP Na 132, K 3, Cl 93, bicarb 19.6, AG 19.4, BUN 61.1, Cr 7.4, glu 121, Ca 8.3. Phos 6. Mag 1.7. Trop 0.016, 0.014. Lactic acid 1.7. C. diff negative. Discussed with Dr. Jason, continue present management. 09/22 Patient was seen and examined. 4 bowel movements over the past 24H. Still with lower abdominal pain, LLQ>RLQ, cramping and sharp in nature. Tolerating minimal amount of diet well with nausea but no vomiting. BMP Na 134, K 3.2, bicarb 20, BUN 49, Cr 3.44, glu 106. Mag 1.9. General: non toxic, mild distress, appears at stated age Derm: warm, dry Head: atraumatic, normocephalic, symmetric Eyes: EOMI, no lid lag, anicteric sclera Mouth: no lip lesion, mucus membranes moist Cardiovascular: S1S2 reg, no murmur Lungs: CTA bilateral, no rhonchi, no rales , no accessory muscle use Abdominal: soft, tenderness to palpation in LLQ > RLQ, no guarding, no appreciable organomegaly, + Russo Ext: no gross muscle atrophy, no edema, no contractures Neuro: no focal neuro deficits Psych: Alert, oriented, appropriate affect Based on my assessment of this patient, this patient meets a high complexity level of care. SHITAL on CKD stage II: Likely due to hypovolemia (vomiting, diarrhea, poor oral intake). CT AP unremarkable. Hold Valsartan, Claritin, Omeprazole. Continue NS at 150 cc/hr. Renal diet. Nephrology on board. Hypokalemia: KCl 60 meq PO x 1. Anion gap metabolic acidosis likely related to SHITAL on CKD. Hyponatremia likely due to severe dehydration Likely viral gastroenteritis: C. diff negative. Zofran 4 mg IV Q6H PRN for N/V. Reglan 5 mg IV Q6H PRN N/V. Imodium 2 mg PO QID PRN. Order stool culture, occult blood and lactoferrin. Consider CT AP with constrast if symptoms worsen after renal function improves. Chest pain: Appears to be MSK. Tenderness to palpation of the chest wall on physical exam. ACS ruled out. Telemetry monitoring. Resolved: Lactic acidosis CODE STATUS: FULL CODE. DVT Prophylaxis: Heparin SQ GI Prophylaxis: Designated medical POA if patient is not able to make medical decisions for themselves: Lindy I have reviewed the following apprenticeship consultant notes: I have reviewed the results of the following tests: BMP. Mag I have ordered the following tests: BMP. Mag. I have discussed the care of this patient with the following independent istorian: I have independently interpreted the following test below: I have discussed the management of this patient with the following physician: Objective - Vital Signs Vital signs: Vital Signs Temp 98.0 F 09/22/24 02:00 Pulse 81 09/22/24 02:00 Resp 12 09/22/24 02:00 BP 112/74 09/22/24 02:00 Pulse Ox 94 L 09/22/24 02:00 FiO2 Intake & Output 09/21/24 09/22/24 09/22/24 18:59 06:59 18:59 Intake Total 358 540 Output Total 1500 2000 Balance -1142 -1460 Intake: Oral 358 540 Output: Urine 1500 2000 Other: Voiding Method Indwelling Catheter Indwelling Catheter - Labs CBC & Chem 7: 09/20/24 09:01 09/22/24 04:53 Labs: Abnormal Lab Results - Last 24 Hours (Table) 09/21/24 09/22/24 Range/Units 05:45 04:53 Sodium 132 L 134 L (135-145) mmol/L Potassium 3.0 L 3.2 L (3.5-5.5) mmol/L Chloride 93 L (96-109) mmol/L Carbon Dioxide 19.6 L 20 L (21.6-31.8) mmol/L Anion Gap 19.40 H (4.00-12.00) mmol/L BUN 61.1 H 49 H (9.0-27.0) mg/dL Creatinine 7.4 H 3.44 H (0.6-1.5) mg/dL Est GFR (CKD-EPI) 6 L (>=60) BUN/Creatinine Ratio 8.26 L (12.00-20.00) Ratio Glucose 121 H 106 H (70-110) mg/dL Calcium 8.3 L (8.7-10.3) mg/dL Phosphorus 6.0 H (2.4-5.1) mg/dL
--- NOTE | 2024-09-22 10:37 | P.PN ---
Subjective Patient is seen in follow-up for acute kidney injury on chronic kidney disease. Renal function better. Urine output also significantly improved. On IV fluids. No vomiting. Still having diarrhea about every 2 hours. Vital signs are stable. General: No acute distress. HEENT: Head exam is unremarkable. LUNGS: No audible rhonchi or wheezes. HEART: Rate and Rhythm are regular. ABDOMEN: Nontender. EXTREMITITES: No edema. Objective - Vital Signs Vital signs: Vital Signs Temp 97.9 F 09/22/24 08:00 Pulse 84 09/22/24 08:00 Resp 16 09/22/24 08:00 BP 129/76 09/22/24 08:00 Pulse Ox 100 09/22/24 08:00 FiO2 Intake & Output 09/21/24 09/22/24 09/22/24 18:59 06:59 18:59 Intake Total 358 540 240 Output Total 1500 2000 1600 Balance -1142 -1460 -1360 Intake: Oral 358 540 240 Output: Urine 1500 2000 1600 Uretheral (Russo) 1600 Other: Voiding Method Indwelling Catheter Indwelling Catheter - Labs CBC & Chem 7: 09/20/24 09:01 09/22/24 04:53 Labs: Abnormal Lab Results - Last 24 Hours (Table) 09/21/24 09/22/24 Range/Units 05:45 04:53 Sodium 132 L 134 L (135-145) mmol/L Potassium 3.0 L 3.2 L (3.5-5.5) mmol/L Chloride 93 L (96-109) mmol/L Carbon Dioxide 19.6 L 20 L (21.6-31.8) mmol/L Anion Gap 19.40 H (4.00-12.00) mmol/L BUN 61.1 H 49 H (9.0-27.0) mg/dL Creatinine 7.4 H 3.44 H (0.6-1.5) mg/dL Est GFR (CKD-EPI) 6 L (>=60) BUN/Creatinine Ratio 8.26 L (12.00-20.00) Ratio Glucose 121 H 106 H (70-110) mg/dL Calcium 8.3 L (8.7-10.3) mg/dL Phosphorus 6.0 H (2.4-5.1) mg/dL Assessment and Plan Plan: Assessment: 1. Acute kidney injury secondary to ATN secondary to severe hypovolemia. Further worsened with the use of ARB. Creatinine 8.15 on admission and is 3.44 today. No hydronephrosis noted on CAT scan. 2. Nausea vomiting and diarrhea. Possibly gastroenteritis. Tested negative for influenza, RSV and COVID-19. C. difficile negative. 3. Metabolic acidosis secondary to acute kidney injury and lactic acidosis. Also on IV fluids. Stable. 4. Hypertension with chronic kidney disease. Controlled. 5. Hypovolemic hyponatremia. Better. 6. Hypokalemia from poor intake and GI losses. 7. Hyperphosphatemia secondary to acute kidney injury. Expect improvement with improving renal function and urine output. Plan: Maintain IV fluids. Replace potassium. Maintain Russo catheter. Can DC tomorrow. Avoid nephrotoxins. Continue to hold antihypertensives. Continue to monitor renal function and urine output.
[2024-09-23 03:46] LABS: African American GFR (CKD) 58 (>60 ml/min/1.73 sqM); Anion Gap 9 mmol/L; Blood Urea Nitrogen 25 mg/dL (9-20); Calcium 8.9 mg/dL (8.4-10.2); Carbon Dioxide 16 mmol/L (22-30); Chloride 111 mmol/L (98-107); Glucose 143 mg/dL (74-99); Magnesium 1.8 mg/dL (1.6-2.3); Non-African American GFR(CKD) 50 (>60 ml/min/1.73 sqM); Phosphorus 2.1 mg/dL (2.5-4.5); Potassium 3.5 mmol/L (3.5-5.1); Sodium 136 mmol/L (137-145)
[2024-09-23 07:57] VITALS: RESP 16
[2024-09-23] MEDS: POTASSIUM CHLORIDE ER 20 MEQ TAB.ER PO STA (09:52)
[2024-09-23] MEDS: amLODIPine 10 MG TAB PO SCH (09:52)
[2024-09-23] MEDS: SODIUM CHLORIDE 0.9% 1,000 ML IV SCH (09:53)
[2024-09-23] MEDS: METOPROLOL TARTRATE 50 MG TAB PO SCH (09:53)
[2024-09-23] MEDS ORDERED: Phosphorus Replacement Protoco 1 EACH MISC MISCELLANE PRN (09:58)
--- NOTE | 2024-09-23 09:59 | P.PN ---
Subjective Patient is seen in follow-up for acute kidney injury on chronic kidney disease. Renal function improving. Nonoliguric. On IV fluids. No vomiting. Had 2 loose bowel movements last night. Vital signs are stable. General: No acute distress. HEENT: Head exam is unremarkable. LUNGS: No audible rhonchi or wheezes. HEART: Rate and Rhythm are regular. ABDOMEN: Nontender. EXTREMITITES: No edema. Objective - Vital Signs Vital signs: Vital Signs Temp 99.2 F 09/23/24 07:46 Pulse 85 09/23/24 07:46 Resp 16 09/23/24 07:46 BP 144/88 09/23/24 07:46 Pulse Ox 99 09/23/24 07:46 FiO2 Intake & Output 09/22/24 09/23/24 09/23/24 18:59 06:59 18:59 Intake Total 2460 2730 240 Output Total 6100 2275 Balance -3640 455 240 Intake: Intake, IV Titration 1650 Amount Sodium Chloride 0.9% 1, 1650 000 ml @ 150 mls/hr IV . Q6H40M [facility] Rx#:[id number] Oral 2460 1080 240 Output: Urine 6100 2275 Uretheral (Russo) 2300 Other: Voiding Method Indwelling Catheter Indwelling Catheter # Bowel Movements 1 - Labs CBC & Chem 7: 09/20/24 09:01 09/23/24 03:07 Labs: Abnormal Lab Results - Last 24 Hours (Table) 09/23/24 Range/Units 03:07 Sodium 136 L (137-145) mmol/L Chloride 111 H (98-107) mmol/L Carbon Dioxide 16 L (22-30) mmol/L BUN 25 H (9-20) mg/dL Creatinine 1.56 H (0.66-1.25) mg/dL Glucose 143 H (74-99) mg/dL Phosphorus 2.1 L (2.5-4.5) mg/dL Assessment and Plan Plan: Assessment: 1. Acute kidney injury secondary to ATN secondary to severe hypovolemia. Further worsened with the use of ARB. Creatinine 8.15 on admission and is 1.56 today. No hydronephrosis noted on CAT scan. 2. Nausea vomiting and diarrhea. Possibly gastroenteritis. Tested negative for influenza, RSV and COVID-19. C. difficile negative. 3. Metabolic acidosis secondary to acute kidney injury, GI losses and lactic acidosis. Also on IV fluids. 4. Hypertension with chronic kidney disease. Controlled. 5. Hypovolemic hyponatremia. Better. 6. Hypokalemia from poor intake and GI losses. Replaced. Better. 7. Hyperphosphatemia secondary to acute kidney injury. Expect improvement with improving renal function and urine output. Now phosphorus on the lower side. Plan: Change IV fluids to bicarb drip to be run at 100 cc an hour. Replace potassium and phosphorus. Okay to DC Russo catheter from nephrology standpoint. Avoid nephrotoxins. Continue to hold antihypertensives. Continue to monitor renal function and urine output. Follow-up outpatient 1 week postdischarge.
[2024-09-23 10:13] LABS: HCT 35.4 % (39.0-53.0); MCH 31.7 pg (25.0-35.0); MCHC 32.6 g/dL (31.0-37.0); MCV 97.1 fL (80.0-100.0); Mean Platelet Volume 11.4; Platelet Count 146 k/uL (150-450); RBC 3.65 m/uL (4.30-5.90); WBC 4.6 k/uL (3.8-10.6)
[2024-09-23 10:18] LABS: HGB 11.6 gm/dL (13.0-17.5)
[2024-09-23] MEDS: DEXTROSE 5% IN WATER 1,000 ML with SODIUM BICARB (1 MEQ/ML) 150 ML IV SCH (10:38)
[2024-09-23] MEDS: POTAS-SOD-PHOS 280-160-250 MG 1 EACH PACKET PO ONE (10:38)
--- NOTE | 2024-09-23 11:44 | P.DS ---
Providers Date of admission: 09/20/24 11:30 Expected date of discharge: 09/23/24 Attending physician: Javad Avila Consults: 09/20/24 11:30 Consult Physician Urgent Consulting Provider: Alvarado Jason Consult Reason/Comments: ARF Do you want consulting provider notified?: Already Contacted Primary care physician: [facility] Course: 54 year old M with PMH of HTN, CKD stage II, HLD, anxiety presents to the ED. He reports nausea, vomiting and diarrhea that has been ongoing for the past 3 days. He reports returning from [place] last Tuesday, his nephew was sick with similar symptoms. He reports chills that started on Tuesday. Since yesterday, he reports chest pain, left sided, tight in nature sometimes radiating in between the scapula. 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 His symptoms have progressively worsened which prompted him to come to the ED. In the ED he underwent extensive evaluation. BP 144/106, HR 110, T 97.4F, RR 16, 95% on RA. CBC, Coag panel, CMP significant for Plt 121, Na 132, Cl 87, bicarb 19, BUN 54, Cr 8.15, glu 157, alb 5.4. Lactic acid 5.0. UA 2+ protein, trace glucose, small blood, 1+ bilirubin, 9 RBC, 24 WBC, 15 hyaline casts, occasional bacteria, many mucus. COVID, RSV, Flu neg. EKG sinus tachycardia with no ST elevation. CT AP negative for acute pathology. Patient is admitted for further workup and management. Started on NS at 150 cc/hr. Nephrology consulted and following. Renal function improved with IV hydration. Troponins trended and ACS ruled out. Electrolytes were replaced. Gastroenteritis symptomatically treated with Zofran, Reglan, and Imodium PRN. 09/23 Patient was seen and examined. Nausea and vomiting improved. Diarrhea slowing down. Lower abdominal cramping tolerable. CBC and BMP significant for RBC 3.65, Hg 11.6, Hct 35.4, Na 136, Cl 111, bicarb 16, BUN 25, Cr 1.56, glu 143. Phos 2.1. Mag 1.8. Discharge Plan: Discussed with Dr. Jason, give 2 amps of bicarb followed by sodium bicarb 650 mg PO BID, repeat BMP in 2-3 days, outpatient followup in 1 week. Russo catheter discontinued, conditional discharge based on ability to void. Valsartan held on discharge to be restarted in the future at the discretion of the PCP. Prescription sent for [place] PRN and sodium bicarbonate 650 mg PO BID x 14 days. Advised to hydrate as much as possible on discharge. General: non toxic, no distress, appears at stated age Derm: warm, dry Head: atraumatic, normocephalic, symmetric Eyes: EOMI, no lid lag, anicteric sclera Mouth: no lip lesion, mucus membranes moist Cardiovascular: S1S2 reg, no murmur Lungs: CTA bilateral, no rhonchi, no rales , no accessory muscle use Ext: no gross muscle atrophy, no edema, no contractures Neuro: no focal neuro deficits Psych: Alert, oriented, appropriate affect Discharge Diagnosis: SHITAL on CKD stage II Metabolic acidosis likely related to SHITAL on CKD and hyperchloremia Hyponatremia likely due to severe dehydration Likely viral gastroenteritis Chest pain likely MSK in nature Resolved: Lactic acidosis, Hypokalemia, high anion gap This complex discharge took 35 minutes to complete. Patient Condition at Discharge: Stable Plan - Discharge Summary Discharge Rx Participant: No New Discharge Prescriptions: New HYDROcodone/APAP 10-325MG [[place] 10-325] 1 tab PO Q6HR PRN 3 Days #12 tab PRN Reason: Breakthrough Pain Acetaminophen Tab [Tylenol] 650 mg PO Q6HR PRN tab PRN Reason: Mild Pain Or Fever > 100.5 Loperamide [Imodium] 2 mg PO QID PRN cap PRN Reason: Diarrhea Sodium Bicarbonate Tab 650 mg PO BID #28 tablet Continue Omeprazole 20 mg PO DAILY ALPRAZolam [Xanax] 0.5 mg PO DAILY PRN PRN Reason: Anxiety Rosuvastatin Calcium [Crestor] 5 mg PO BID Loratadine [Claritin] 10 mg PO DAILY Metoprolol Tartrate [Lopressor] 50 mg PO BID #60 tab amLODIPine [Norvasc] 10 mg PO DAILY ondansetron HCL [Zofran] 8 mg PO DAILY PRN PRN Reason: Nausea And Vomiting Discontinued Valsartan [Diovan] 160 mg PO BID Discharge Medication List Omeprazole 20 mg PO DAILY 03/09/18 [History] ALPRAZolam [Xanax] 0.5 mg PO DAILY PRN 05/25/22 [History] Metoprolol Tartrate [Lopressor] 50 mg PO BID #60 tab 05/27/22 [Rx] amLODIPine [Norvasc] 10 mg PO DAILY 07/12/22 [History] Loratadine [Claritin] 10 mg PO DAILY 09/20/24 [History] Rosuvastatin Calcium [Crestor] 5 mg PO BID 09/20/24 [History] ondansetron HCL [Zofran] 8 mg PO DAILY PRN 09/20/24 [History] Acetaminophen Tab [Tylenol] 650 mg PO Q6HR PRN tab 09/23/24 [Rx] HYDROcodone/APAP 10-325MG [[place] 10-325] 1 tab PO Q6HR PRN 3 Days #12 tab 09/23/24 [Rx] Loperamide [Imodium] 2 mg PO QID PRN cap 09/23/24 [Rx] Sodium Bicarbonate Tab 650 mg PO BID #28 tablet 09/23/24 [Rx] Follow up Appointment(s)/Referral(s): Kelly Roblero MD [Primary Care Provider] - 1-2 days (Please call and schedule follow-up appointment) Alvarado Jason DO [STAFF PHYSICIAN] - 1 Week (Please call and schedule follow- up appointment) Ambulatory/Diagnostic Orders: Basic Metabolic Panel [LAB.AMB] Time Frame: 3 Days, Location: None Selected Patient Instructions/Handouts: Acute Kidney Injury (DC) Activity/Diet/Wound Care/Special Instructions: Diet: Low salt Maintain hydration. Repeat BMP in 2-3 days to be followed up with your PCP. Limit activity until seen by DRSarbjit Discharge Disposition: HOME SELF-CARE
[2024-09-23] MEDS: SODIUM BICARB 8.4% 50 ML SYR (1 MEQ/ML) IV STA (11:49)
[2024-09-23 11:59] VITALS: BP 132/76; PULSE 82; TEMP 98.1
[2024-09-23] MEDS ORDERED: SODIUM BICARBONATE TAB 650 MG TAB PO SCH (21:00)
== END 2024-09-23 13:00 | disposition home or self-care (01) | DRG 683 ==
LOC: EC 08:39 → 5NMEDONC 11:30
PROVIDERS: ADMIT Student in an Organized Health Care Education/Training Program; ATTEND Student in an Organized Health Care Education/Training Program
DX: N17.0 Acute kidney failure with tubular necrosis (principal); E87.1 Hypo-osmolality and hyponatremia; E87.20 Acidosis, unspecified; N18.31 Chronic kidney disease, stage 3a; F41.9 Anxiety disorder, unspecified; I12.9 Hypertensive chronic kidney disease with stage 1 through stage 4 chronic kidney disease, or unspecified chronic kidney disease; E78.5 Hyperlipidemia, unspecified; A08.4 Viral intestinal infection, unspecified; E86.0 Dehydration; E87.8 Other disorders of electrolyte and fluid balance, not elsewhere classified; E87.6 Hypokalemia; K21.9 Gastro-esophageal reflux disease without esophagitis; F17.200 Nicotine dependence, unspecified, uncomplicated; E86.1 Hypovolemia; E83.39 Other disorders of phosphorus metabolism; R07.89 Other chest pain; Z79.899 Other long term (current) drug therapy
CPT/HCPCS: 36415; 51702; 74176; 80048; 80053; 81001; 82150; 82272; 82803; 83605; 83630; 83690; 83735; 84100; 84132; 84484; 85025; 85027; 85610; 85730; 87045; 87046; 87077; 87186; 87324; 87636; 93005; 96361; 96374; 96375; 96376; 99285

== ENCOUNTER 2025-03-13 14:35 | Emergency (ER) | payer MEDICAID ==
[2025-03-13 14:43] VITALS: TEMP 97.9
--- NOTE | 2025-03-13 14:58 | ED ---
General Adult HPI - General Chief complaint: Abdominal Pain Stated complaint: Abd pain Time Seen by Provider: 03/13/25 14:45 Source: patient, RN notes reviewed Mode of arrival: ambulatory Limitations: no limitations - History of Present Illness Initial comments: 54-year-old male with history of hypertension and acid reflux presenting to emergency room for complaints of right upper quadrant and left upper abdominal pain described as a squeezing and stabbing sensation. He states the pain has been intermittent over the past approximately 2 weeks however today the pain is intensified. He states that he has been having associated nausea with no reported emesis. Denies precipitating or modifying factors of the abdominal pain however states that it is normally worse in the morning. When pain initially started he was experiencing diarrhea however this has changed to loose stools that are nonbloody and not dark or tarry. He denies urinary complaints, chest pain, difficulty in breathing, fevers, chills. Denies previous surgical abdominal history. history of PUD treated with oral medications. - Related Data Home Medications Medication Instructions Recorded Confirmed Omeprazole 20 mg PO DAILY 03/09/18 09/20/24 ALPRAZolam [Xanax] 0.5 mg PO DAILY PRN 05/25/22 09/20/24 amLODIPine [Norvasc] 10 mg PO DAILY 07/12/22 09/20/24 Loratadine [Claritin] 10 mg PO DAILY 09/20/24 09/20/24 Rosuvastatin Calcium [Crestor] 5 mg PO BID 09/20/24 09/20/24 ondansetron HCL [Zofran] 8 mg PO DAILY PRN 09/20/24 09/20/24 Previous Rx's Medication Instructions Recorded Metoprolol Tartrate [Lopressor] 50 mg PO BID #60 tab 05/27/22 Acetaminophen Tab [Tylenol] 650 mg PO Q6HR PRN tab 09/23/24 HYDROcodone/APAP 10-325MG [[place] 1 tab PO Q6HR PRN 3 Days #12 tab 09/23/24 10-325] Loperamide [Imodium] 2 mg PO QID PRN cap 09/23/24 Sodium Bicarbonate Tab 650 mg PO BID #28 tablet 09/23/24 Allergies Allergy/AdvReac Type Severity Reaction Status Date / Time No Known Allergies Allergy Verified 09/20/24 10:14 Review of Systems ROS Statement: Those systems with pertinent positive or pertinent negative responses have been documented in the HPI. ROS Other: All systems not noted in ROS Statement are negative. 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, refractory hypertension, chronic stage III kidney disease History of Any Multi-Drug Resistant Organisms: None Reported Additional Past Surgical History / Comment(s): circumcision as adult, pain pr ocedures Past Anesthesia/Blood Transfusion Reactions: No Reported Reaction Past Psychological History: Anxiety, Depression Smoking Status: Current some day smoker Past Alcohol Use History: Occasional Past Drug Use History: None Reported - Past Family History Mother Family Medical History: Cancer General Exam Limitations: no limitations General appearance: alert, in no apparent distress ENT exam: Present: normal exam, mucous membranes moist Neck exam: Present: normal inspection. Absent: tenderness, meningismus, lymphadenopathy Respiratory exam: Present: normal lung sounds bilaterally. Absent: respiratory distress, wheezes, rales, rhonchi, stridor Cardiovascular Exam: Present: regular rate, normal rhythm, normal heart sounds. Absent: systolic murmur, diastolic murmur, rubs, gallop, clicks GI/Abdominal exam: Present: soft, tenderness (LLQ, RUQ, mid left abdomen), normal bowel sounds. Absent: distended, guarding, rebound, rigid Extremities exam: Present: normal inspection, full ROM, normal capillary refill. Absent: tenderness, pedal edema, joint swelling, calf tenderness Back exam: Present: normal inspection. Absent: CVA tenderness (R), CVA tenderness (L) Course Vital Signs 03/13/25 14:40 Temperature 97.9 F Pulse Rate 72 Respiratory 16 Rate Blood Pressure 137/96 O2 Sat by Pulse 98 Oximetry Medical Decision Making - Medical Decision Making Was pt. sent in by a medical professional or institution (, PA, COLLEGE ARCHIVIST, urgent care, hospital, or half-way...) When possible be specific @ -No Did you speak to anyone other than the patient for history (EMS, parent, family, police, friend...)? What history was obtained from this source @ -No Did you review nursing and triage notes (agree or disagree)? Why? @ -I reviewed and agree with nursing and triage notes Were old charts reviewed (outside hosp., previous admission, EMS record, old EK G, old radiological studies, urgent care reports/EKG's, half-way records)? Report findings @ -No old charts were reviewed Differential Diagnosis (chest pain, altered mental status, abdominal pain women, abdominal pain men, vaginal bleeding, weakness, fever, dyspnea, syncope, headache, dizziness, GI bleed, back pain, seizure, CVA, palpatations, mental health, musculoskeletal)? @ -Differential Abdominal Pain Men: Appendicitis, cholecystitis, diverticulosis, ischemic bowel, pancreatitis, hepa titis, UTI, gastroenteritis, AAA, incarcerated hernia, bowel obstruction, constipation, inflammatory bowel, hepatitis, peptic ulcer disease, splenic infarction, perforated viscus, testicular torsion, this is not meant to be an all-inclusive list EKG interpreted by me (3pts min.). @ -none X-rays interpreted by me (1pt min.). @ -None done CT interpreted by me (1pt min.). @ -CT of the abdomen pelvis with IV contrast reveals no evidence of biliary ductal dilation or gallbladder wall thickening, no evidence of small bowel obstruction or acute abdominal process U/S interpreted by me (1pt. min.). @ -None done What testing was considered but not performed or refused? (CT, X-rays, U/S, labs)? Why? @ -None What meds were considered but not given or refused? Why? @ -None Did you discuss the management of the patient with other professionals (professionals i.e. , PA, COLLEGE ARCHIVIST, lab, RT, psych nurse, social service worker, administrator pesticide, teacher, aviation ordnance officer, telephonic case manager)? Give summary @ -No Was smoking cessation discussed for >3mins.? @ -No Was critical care preformed (if so, how long)? @ -No Were there social determinants of health that impacted care today? How? (Homelessness, low income, unemployed, alcoholism, drug addiction, transportation, low edu. Level, literacy, decrease access to med. care, long-term, rehab)? @ -No Was there de-escalation of care discussed even if they declined (Discuss DNR or withdrawal of care, Hospice)? DNR status @ -No What co-morbidities impacted this encounter? (DM, HTN, Smoking, COPD, CAD, Cancer, CVA, ARF, Chemo, Hep., AIDS, mental health diagnosis, sleep apnea, morbid obesity)? @ -None Was patient admitted / discharged? Hospital course, mention meds given and route, prescriptions, significant lab abnormalities, going to OR and other pertinent info. @ -Discharge. 54-year-old male presented emergency room with complaints of intermittent right upper quad abdominal pain and bloating. Overall patient is well-appearing and initial vitals are stable. Patient noted to have left-sided abdominal pain to palpation and right upper quadrant. Patient is abided with Toradol for pain relief. Laboratory testing is unremarkable including CBC, CMP, urinalysis. CT of the abdomen pelvis with IV contrast reveals no acute intra- abdominal process with no evidence of bowel obstruction, inflammation, or biliary ductal dilation, or wall thickening. Patient is provided with GI follow-up. He states that he has appointment tomorrow with his primary care provider. Return parameters have been discussed. Case discussed with my attending Dr. Woodard Undiagnosed new problem with uncertain prognosis? @ -No Drug Therapy requiring intensive monitoring for toxicity (Heparin, Nitro, Insulin, Cardizem)? @ -No Were any procedures done? @ -No Diagnosis/symptom? @ -RUQ ab pain Acute, or Chronic, or Acute on Chronic? @ -acute Uncomplicated (without systemic symptoms) or Complicated (systemic symptoms)? @ -uncomplicated Side effects of treatment? @ -No Exacerbation, Progression, or Severe Exacerbation? @ -No Poses a threat to life or bodily function? How? (Chest pain, [place], [place], pneumonia, PE, COPD, DKA, ARF, appy, cholecystitis, CVA, Diverticulitis, Homicidal, Suicidal, threat to staff... and all critical care pts) @ -No - Lab Data Result diagrams: 03/13/25 14:55 03/13/25 14:55 Lab Results 03/13/25 03/13/25 03/13/25 Range/Units 14:55 14:55 14:55 WBC 5.30 (4.50-10.00) 10*3/uL RBC 4.31 L (4.40-5.60) 10*6/uL Hgb 13.7 (13.0-17.0) g/dL Hct 38.7 L (39.6-50.0) % MCV 89.8 (80.0-97.0) fL MCH 31.8 (27.0-32.0) pg MCHC 35.4 (32.0-37.0) g/dL Plt Count 141 (140-440) 10*3/uL MPV 10.9 (9.5-12.2) fL Immature Gran % (Auto) 0.6 % Neutrophils % 51.7 % Lymphocytes % 37.4 % Monocytes % 8.9 % Eosinophils % 0.8 % Basophils % 0.6 % Immature Gran # 0.03 (0.00-0.04) 10*3/uL Neutrophils # 2.75 (1.80-7.70) 10*3/uL Lymphocytes # 1.98 (0.90-5.00) 10*3/uL Monocytes # 0.47 (0.20-1.00) 10*3/uL Eosinophils # 0.04 (0.04-0.35) 10*3/uL Basophils # 0.03 (0.00-0.10) 10*3/uL Sodium 138 (137-145) mmol/L Potassium 3.8 (3.5-5.1) mmol/L Chloride 101 (98-107) mmol/L Carbon Dioxide 26 (22-30) mmol/L Anion Gap 11 mmol/L BUN 12 (9-20) mg/dL Creatinine 1.24 (0.66-1.25) mg/dL Est GFR (CKD-EPI)AfAm 77 (>60 ml/min/1.73 sqM) Est GFR (CKD-EPI)NonAf 66 (>60 ml/min/1.73 sqM) Glucose 113 H (74-99) mg/dL Plasma Lactic Acid Jose 1.1 (0.7-2.0) mmol/L Calcium 9.8 (8.4-10.2) mg/dL Total Bilirubin 0.6 (0.2-1.3) mg/dL AST 34 (17-59) U/L ALT 26 (4-49) U/L Alkaline Phosphatase 113 (38-126) U/L Total Protein 8.1 (6.3-8.2) g/dL Albumin 4.9 (3.5-5.0) g/dL Amylase 79 (30-110) U/L Lipase 129 (23-300) U/L Urine Color Urine Appearance (Clear) Urine pH (5.0-8.0) Ur Specific [place] (1.001-1.035) Urine Protein (Negative) Urine Glucose (UA) (Negative) Urine Ketones (Negative) Urine Blood (Negative) Urine Nitrite (Negative) Urine Bilirubin (Negative) Urine Urobilinogen (<2.0) mg/dL Ur Leukocyte Esterase (Negative) Urine RBC (0-5) /hpf Urine WBC (0-5) /hpf Urine Mucus (None) /hpf 03/13/25 Range/Units 14:56 WBC (4.50-10.00) 10*3/uL RBC (4.40-5.60) 10*6/uL Hgb (13.0-17.0) g/dL Hct (39.6-50.0) % MCV (80.0-97.0) fL MCH (27.0-32.0) pg MCHC (32.0-37.0) g/dL Plt Count (140-440) 10*3/uL MPV (9.5-12.2) fL Immature Gran % (Auto) % Neutrophils % % Lymphocytes % % Monocytes % % Eosinophils % % Basophils % % Immature Gran # (0.00-0.04) 10*3/uL Neutrophils # (1.80-7.70) 10*3/uL Lymphocytes # (0.90-5.00) 10*3/uL Monocytes # (0.20-1.00) 10*3/uL Eosinophils # (0.04-0.35) 10*3/uL Basophils # (0.00-0.10) 10*3/uL Sodium (137-145) mmol/L Potassium (3.5-5.1) mmol/L Chloride (98-107) mmol/L Carbon Dioxide (22-30) mmol/L Anion Gap mmol/L BUN (9-20) mg/dL Creatinine (0.66-1.25) mg/dL Est GFR (CKD-EPI)AfAm (>60 ml/min/1.73 sqM) Est GFR (CKD-EPI)NonAf (>60 ml/min/1.73 sqM) Glucose (74-99) mg/dL Plasma Lactic Acid Jose (0.7-2.0) mmol/L Calcium (8.4-10.2) mg/dL Total Bilirubin (0.2-1.3) mg/dL AST (17-59) U/L ALT (4-49) U/L Alkaline Phosphatase (38-126) U/L Total Protein (6.3-8.2) g/dL Albumin (3.5-5.0) g/dL Amylase (30-110) U/L Lipase (23-300) U/L Urine Color Yellow Urine Appearance Clear (Clear) Urine pH 5.5 (5.0-8.0) Ur Specific [place] 1.025 (1.001-1.035) Urine Protein 2+ H (Negative) Urine Glucose (UA) Negative (Negative) Urine Ketones Negative (Negative) Urine Blood Negative (Negative) Urine Nitrite Negative (Negative) Urine Bilirubin Negative (Negative) Urine Urobilinogen 2.0 (<2.0) mg/dL Ur Leukocyte Esterase Negative (Negative) Urine RBC <1 (0-5) /hpf Urine WBC 2 (0-5) /hpf Urine Mucus Many H (None) /hpf Disposition Clinical Impression: Abdominal pain Disposition: HOME SELF-CARE Condition: Stable Instructions (If sedation given, give patient instructions): Abdominal Pain (ED) Additional Instructions: Please return to the Emergency Department if symptoms worsen or any other concerns. Is patient prescribed a controlled substance at d/c from ED?: No Referrals: Kelly Roblero MD [Primary Care Provider] - 1-2 days Felisha Ordoñez MD [STAFF PHYSICIAN] - 1-2 days Time of Disposition: 17:39
[2025-03-13] MEDS: KETOROLAC 15 MG/ML 1 ML VIAL IVP STA (15:07)
[2025-03-13 15:15] LABS: Basophils # (A) 0.03 10*3/uL (0.00-0.10); Basophils % (A) 0.6 %; Eosinophils # (A) 0.04 10*3/uL (0.04-0.35); Eosinophils % (A) 0.8 %; HCT 38.7 % (39.6-50.0); HGB 13.7 g/dL (13.0-17.0); Lymphocytes # (A) 1.98 10*3/uL (0.90-5.00); Lymphocytes % (A) 37.4 %; MCH 31.8 pg (27.0-32.0); MCHC 35.4 g/dL (32.0-37.0); MCV 89.8 fL (80.0-97.0); Mean Platelet Volume 10.9 fL (9.5-12.2); Monocytes # (A) 0.47 10*3/uL (0.20-1.00); Monocytes % (A) 8.9 %; Neutrophils # (A) 2.75 10*3/uL (1.80-7.70); Neutrophils % (A) 51.7 %; Platelet Count 141 10*3/uL (140-440); RBC 4.31 10*6/uL (4.40-5.60); RDW 13.7 % (11.5-14.5)
[2025-03-13 15:28] LABS: ALT 26 U/L (4-49); AST 34 U/L (17-59); African American GFR (CKD) 77 (>60 ml/min/1.73 sqM); Albumin 4.9 g/dL (3.5-5.0); Alkaline Phosphatase 113 U/L (38-126); Amylase 79 U/L (30-110); Anion Gap 11 mmol/L; Blood Urea Nitrogen 12 mg/dL (9-20); Calcium 9.8 mg/dL (8.4-10.2); Carbon Dioxide 26 mmol/L (22-30); Chloride 101 mmol/L (98-107); Glucose 113 mg/dL (74-99); Lipase 129 U/L (23-300); Non-African American GFR(CKD) 66 (>60 ml/min/1.73 sqM); Potassium 3.8 mmol/L (3.5-5.1); Sodium 138 mmol/L (137-145); Total Bilirubin 0.6 mg/dL (0.2-1.3); Total Protein 8.1 g/dL (6.3-8.2)
[2025-03-13 15:29] LABS: Appearance,Urine Clear (Clear); Bilirubin,Urine Negative (Negative); Blood,Urine Negative (Negative); Color,Urine Yellow; Glucose,Urine (UA) Negative (Negative); Ketones,Urine Negative (Negative); Leukocyte Esterase,Urine Negative (Negative); Mucus,Urine Many /hpf; Nitrite,Urine Negative (Negative); PH, Urine 5.5 (5.0-8.0); Protein,Urine 2+ (Negative); RBC,Urine <1 /hpf (0-5); Specific Gravity,Urine 1.025 (1.001-1.035); WBC,Urine 2 /hpf (0-5)
--- NOTE | 2025-03-13 17:23 | CT ---
EXAMINATION TYPE: CT abdomen pelvis w con DATE OF EXAM: 03/13/2025 4:59 PM COMPARISON: 09/20/2024 CLINICAL INDICATION: Male, 54 years old with history of LLQ, RUQ ab pain, nausea, loose stools; ruq a bdomen pain sharp pain rad to back worrse in am. nausea no vomiting. TECHNIQUE: Axial CT abdomen pelvis w con;Sagittal and coronal reformats were created on a separate w orkstation. Contrast used:100 ml mL of Isovue 300 with IV Contrast, (none if empty) Oral contrast used: without Oral Contrast (none if empty) CT DLP: 1019.1 mGycm, Automated exposure control for dose reduction was used. FINDINGS: LOWER CHEST: Unremarkable ABDOMEN LIVER: Diffusely hypoattenuating parenchyma. GALLBLADDER AND BILE DUCTS: Unremarkable. PANCREAS: Unremarkable. SPLEEN: Unremarkable. ADRENAL GLANDS: Unremarkable. KIDNEYS AND URETERS: No evidence of hydronephrosis or obstructing renal calculus. The ureters are unr emarkable. PELVIS BLADDER: Hazy appearance of the urinary bladder wall which is incompletely distended. No evidence for wall thickening or mass given limitations of exam. REPRODUCTIVE: Clips seen in the bilateral scrotum. ABDOMEN & PELVIS STOMACH AND BOWEL: No evidence of bowel obstruction. The appendix is normal. PERITONEUM/RETROPERITONEUM: No evidence of pneumoperitoneum or free fluid. VASCULATURE: No evidence of aortic aneurysm. MUSCULOSKELETAL: No acute osseous abnormalities. Mild disc degeneration changes are present throughou t the thoracolumbar spine. Right sacroiliac joint fixation screws appear intact. LYMPH NODES: No gross evidence for lymphadenopathy. SOFT TISSUE/ABDOMINAL WALL: Left fat-containing inguinal hernia. Fat-containing umbilical hernia. IMP RESSION: 1. Hazy margin to the urinary bladder patel correlate with urinalysis for cystitis. Otherwise, no ot her evidence for acute abdominal process. 2. Hepatic steatosis [facility], , 03/13/2025 5:20 PM
[2025-03-13 18:05] VITALS: BP 130/77; PULSE 70; RESP 17
== END 2025-03-13 18:05 | disposition home or self-care (01) ==
LOC: EC 14:35
DX: R10.11 Right upper quadrant pain (principal); R10.32 Left lower quadrant pain; F17.200 Nicotine dependence, unspecified, uncomplicated
CPT/HCPCS: 36415; 80053; 82150; 83605; 83690; 85025; 81001; 74177; 99284; 96374; J1885; Q9967